=== PATIENT | female | born 1955 | race Caucasian/White ===

== ENCOUNTER 2024-08-02 16:20 | Emergency (ER) | payer MEDICARE, SELFPAY ==
[2024-08-02 16:22] VITALS: BP 150/89; PULSE 95; RESP 19; TEMP 36.7; O2SAT 97; BMI 32.7
[2024-08-02 16:23] VITALS: BP 150/89; PULSE 95; RESP 19; TEMP 36.7; O2SAT 97
--- OUTSIDE RECORDS SUMMARY | 2024-08-02 17:14 | XMS RPT_ITS | CCD ---
Author Organization [facility] CliniSyny Care Team Providers Care Rn Cardiac Cath Name Role Phone CHIN AUGUSTINE Unavailable Unavailable NICOLAS BIANCHI Unavailable Unavailable [employer]oto SECURITY AND COMPLIANCE ANALYST-RINKMAN, Jessica Primary Care Provider Marcus Estrada MD Unavailable [employer]oto SECURITY AND COMPLIANCE ANALYST-RINKMAN, Jessica Primary Care Provider Marcus Estrada MD Unavailable Coto SECURITY AND COMPLIANCE ANALYST-RINKMAN, Jessica Primary Care Provider Marcus Estrada MD Unavailable Unavailable Primary Care Provider Unavailabl e PROVIDER, UNKNOWN Admitting Unavailable COTO, JESSICA Primary Care Unavailable COTO, JESSICA Attending Unavailable PROVIDER, UNKNOWN Admitting Unavailable PROVIDER, UNKNOWN Attending Unavailable COTO, JESSICA Primary Care Unavailable COTO, JESSICA Referring Unavailable PROVIDER, UNKNOWN Admitting Unavailable PROVIDER, UNKNOWN Attending Unavailable COTO, JESSICA Primary Care Unavailable EUNICE GALE Attending Unavailable PROVIDER, UNKNOWN Admitting Unavailable COTO, JESSICA Primary Care Unavailable PROVIDER, UNKNOWN Attending Unavailable PROVIDER, UNKNOWN Admitting Unavailable COTO, JESSICA Primary Care Unavailable PROVIDER, UNKNOWN Admitting Unavailable COTO, JESSICA Attending Unavailable COTO, JESSICA Primary Care Unavailable COTO, JESSICA Primary Care Unavailable EUNICE GALE Attending Unavailable PROVIDER, UNKNOWN Admitting Unavailable COTO, JESSICA Primary Care Unavailable PROVIDER, UNKNOWN Attending Unavailable PROVIDER, UNKNOWN Admitting Unavailable COTO, JESSICA Primary Care Unavailable MARKUS LAUGHLIN Attending Unavailabl e PROVIDER, UNKNOWN Admitting Unavailable PROVIDER, UNKNOWN Admitting Unavailable COTO, JESSICA Primary Care Unavailable PROVIDER, UNKNOWN Attending Unavailable Allergies Allergy Classification Reported Allergen(s) Allergy Type Date of Onset Reaction(s) Facility Aminoketones (2 sources) buPROPion Drug Allergy 4 [facility] Work Phone: Penicillins (antibiotic) (2 sources) Penicillins Drug Allergy 1 [facility] (20 sources) buPROPion; Translations: [BUPROPION] Drug Allergy 4 [facility] Work Phone: (20 sources) Penicillins; Translations: [PENICILLINS] Propensity to adverse reactions to drug 1 [facility] Medications Current Medications Medication Drug Class(es) Dates Sig (Normalized) Sig (Original) cefpodoxime 100 mg oral tablet (3 sources) Cephalosporin Antibacterial Start: 03-29-2023 End: 04-09-2023 take 2 tablets by mouth twice daily cefpodoxime (VANTIN) 100 MG tablet Take 2 Tablets by mouth 2 times daily for 7 days. 28 Tablet 0 03/29/2023 04/09/2023 Active cholecalciferol 0.025 mg oral capsule (20 sources) Vitamin D Start: 04-14-2022 End: 06-18-2024 take 1 capsule by mouth once daily Vitamin D3 (D3-1000) 25 MCG (1000 UT) CAPS capsule Take 1 Capsule by mouth daily. To start after you finish taking the once a week dosage 90 Capsule 3 06/19/2024 Active diclofenac sodium 75 mg delayed release oral tablet (2 sources) Nonsteroidal Anti-inflammatory Drug Start: 03-23-2023 End: 03-28-2023 take 1 tablet by mouth twice daily diclofenac (VOLTAREN) 75 MG enteric coated tablet Take 1 Tablet by mouth 2 times daily for 5 days. 10 Tablet 0 03/23/2023 03/28/2023 Active esomeprazole 20 mg delayed release oral capsule (20 sources) Proton Pump Inhibitor Start: 04-30-2023 End: 02-18-2025 take 1 capsule by mouth once daily in the evening esomeprazole (NEXIUM) 20 MG capsule Indications: Gastroesophageal reflux disease, unspecified whether esophagitis present Take 1 Capsule by mouth daily. 90 Capsule 3 06/03/2024 6:34 PM EDT 02/19/2024 02/18/2025 Active Start: 09-30-2020 End: 10-10-2022 take 1 capsule by mouth once daily 30 minutes before breakfast esomeprazole (NEXIUM) 20 MG capsule TAKE 1 CAPSULE BY MOUTH DAILY (30 MINUTES BEFORE BREAKFAST). 90 Capsule 3 10/10/2021 04/19/2022 Discontinued (Cost of medication) estrogens, conjugated (longterm) 0.625 mg/ml vaginal cream (20 sources) Estrogen Start: 11-24-2021 End: 12-24-2021 conjugated estrogens (PREMARIN) 0.625 MG/GM vaginal cream Indications: KARAN (stress urinary incontinence, female) , Atrophic vaginitis Insert 1g into the vagina daily for 14 days. To start this medication use a bedtime daily for 14 days and then use twice weekly. Insert with applicator. 30 g 2 11/24/2021 11:45 AM EDT 11/24/2021 Active fluticasone propionate 0.05 mg/actuat metered dose nasal spray (20 sources) Corticosteroid Start: 03-16-2024 take 1 spray(s) nasal route twice daily in the evening fluticasone (FLONASE) 50 mcg/act nasal inhaler Indications: Allergic rhinitis, unspecified seasonality, unspecified trigger Use 1 Corinne in each nostril 2 times daily. Corinne in both nostrils. 48 g 3 03/17/2024 3:49 PM EST 03/16/2024 Active Start: 09-13-2021 End: 10-31-2022 take 1 spray(s) nasal route twice daily in the evening fluticasone (FLONASE) 50 mcg/act nasal inhaler Indications: Allergic rhinitis, unspecified seasonality, unspecified trigger Use 1 Corinne in each nostril 2 times daily. Corinne in both nostrils. 16 g 1 09/04/2023 6:33 PM EDT 10/31/2022 Active 3 ml liraglutide 6 mg/ml pen injector (17 sources) GLP-1 Receptor Agonist Start: 07-19-2023 End: 12-19-2024 inject 1.8 mg by subcutaneous injection once daily in the evening liraglutide (VICTOZA) 18 MG/3ML pen Indications: Prediabetes , Class 1 obesity Inject 1.8 mg under the skin daily. 27 mL 3 12/21/2023 3:44 PM EDT 12/20/2023 12/19/2024 Active losartan potassium 25 mg oral tablet (14 sources) Angiotensin 2 Receptor Gautam Start: 07-25-2023 End: 10-09-2024 take 1 tablet by mouth once daily in the evening losartan (COZAAR) 25 MG tablet Take 1 Tablet by mouth daily. 90 Tablet 3 03/17/2024 3:49 PM EST 10/10/2023 10/09/2024 Active ondansetron 4 mg disintegrating oral tablet (1 source) Serotonin-3 Receptor Antagonist Start: 03-18-2022 ondansetron (ZOFRAN-ODT) disintegrating tablet vitamin b12 1 mg oral tablet (20 sources) Vitamin B12 Start: 04-14-2022 End: 06-03-2023 take 1 tablet by mouth once daily in the morning vitamin B-12 (CYANOCOBALAMIN) 1000 MCG tablet Take 1 Tablet by mouth daily. 90 Tablet 3 04/09/2024 9:04 AM EST 06/04/2023 Active Completed/Discontinued Medications Medication Drug Class(es) Dates Sig (Normalized) Sig (Original) acetaminophen 325 mg oral tablet (20 sources) Start: 03-18-2022 End: 03-18-2022 acetaminophen (TYLENOL) tablet Start: 03-18-2022 End: 07-19-2023 take 2 tablets by mouth every six hours as needed for pain acetaminophen (TYLENOL) 325 mg tablet Take 2 Tablets by mouth every 6 hours as needed for Pain or Fever. 30 Tablet 03/18/2022 07/19/2023 Discontinued azithromycin 250 mg oral tablet (3 sources) Macrolide Antimicrobial Start: 03-29-2023 End: 04-03-2023 azithromycin (Z-PACK) 250 mg tablet Take 2 tabs by mouth once on day 1, then take 1 tab by mouth daily for 4 days. 6 Tablet 0 03/29/2023 04/03/2023 benzonatate 100 mg oral capsule (5 sources) Non-narcotic Antitussive Start: 03-18-2022 End: 03-18-2022 benzonatate (TESSALON) 100 MG capsule Start: 03-18-2022 End: 03-30-2022 take 1 capsule by mouth three times daily as needed for cough benzonatate (TESSALON) 100 MG capsule Take 1 Capsule by mouth 3 times daily as needed for Cough. 30 Capsule 0 03/18/2022 03/30/2022 Discontinued (Therapy completed) ergocalciferol 1.25 mg oral capsule (14 sources) Provitamin D2 Compound Start: 04-14-2022 End: 07-19-2023 take 1 capsule by mouth every week vitamin D2 (ERGOCALCIFEROL) 1.25 MG (52204 UT) capsule Take 1 Capsule by mouth once weekly. 12 Capsule 04/14/2022 07/19/2023 Discontinued 12 hr guaiFENesin 600 mg extended release oral tablet (19 sources) Start: 03-18-2022 End: 03-18-2022 guaifenesin (MUCINEX) 600 MG 12 hour tablet Start: 03-18-2022 End: 04-30-2023 take 1 tablet by mouth twice daily as needed guaifenesin (Mucinex) 600 MG SR tablet Take 1 Tablet by mouth 2 times daily as needed. 20 Tablet 0 03/18/2022 04/30/2023 Discontinued omeprazole 20 mg delayed release oral capsule (1 source) Proton Pump Inhibitor End: 04-30-2023 take 1 capsule by mouth once daily omeprazole (PRILOSEC) 20 MG capsule Take 20 mg by mouth daily. 0 04/30/2023 Discontinued oseltamivir 75 mg oral capsule (4 sources) Neuraminidase Inhibitor Start: 03-29-2023 End: 04-30-2023 take 1 capsule by mouth twice daily oseltamivir (TAMIFLU) 75 MG capsule Take 1 Capsule by mouth 2 times daily. 10 Capsule 0 03/29/2023 04/30/2023 Discontinued pantoprazole 40 mg delayed release oral tablet (13 sources) Proton Pump Inhibitor Start: 04-19-2022 End: 04-30-2023 take 1 tablet by mouth once daily 30 minutes before breakfast pantoprazole (PROTONIX) 40 MG tablet Take 1 Tablet by mouth daily (30 minutes before breakfast). 90 Tablet 3 10/06/2022 04/30/2023 Discontinued Semaglutide, 1 MG/DOSE, (OZEMPIC) 4 MG/3ML pen (6 sources) Start: 09-03-2023 End: 12-20-2023 inject 1 mg by subcutaneous injection every week Semaglutide, 1 MG/DOSE, (OZEMPIC) 4 MG/3ML pen Indications: Prediabetes Inject 1 mg under the skin once weekly. 9 mL 3 09/03/2023 12/20/2023 Discontinued Start: 09-03-2023 inject 1 mg by subcu taneous injection every week Semaglutide, 1 MG/DOSE, (OZEMPIC) 4 MG/3ML pen Indications: Prediabetes Inject 1 mg under the skin once weekly. 9 mL 3 09/03/2023 Active topiramate 25 mg oral tablet (14 sources) Start: 04-13-2022 End: 06-03-2023 take 1 tablet by mouth once daily at dinner topiramate (TOPAMAX) 25 MG tablet Take 1 Tablet by mouth daily. Take at dinner 90 Tablet 3 04/13/2022 04/30/2023 Discontinued VITAMIN D ORAL (7 sources) End: 04-30-2023 VITAMIN D ORAL Take by mouth daily. 0 04/30/2023 Discontinued VITAMIN D ORAL T lazaro by mouth daily. 0 Active Problems Active Problems Problem Classification Problem Date Documented Date Episodic/Chronic Chronic obstructive pulmonary disease and bronchiectasis (20 sources) Chronic bronchitis; Translations: [Unspecified chronic bronchitis] Onset: 05-27-2004 Resolved: 08-13-2017 08-13-2017 Chronic Deficiency and other anemia (1 source) Anemia; Translations: [Anemia, unspecified] Episodic Disorders of lipid metabolism (20 sources) Hyperlipidemia; Translations: [Hyperlipidemia, unspecified] Onset: 09-14-2021 Chronic Esophageal disorders (20 sources) Gastroesophageal reflux disease; Translations: [Gastro-esophageal reflux disease without esophagitis] Onset: 08-13-2017 08-13-2017 Chronic Essential hypertension (20 sources) Essential hypertension; Translations: [Essential (primary) hypertension] Onset: 03-31-2023 03-23-2023 Chronic Fluid and electrolyte disorders (2 sources) Hyperkalemia; Translations: [Hyperkalemia] 11-27-2023 Episodic Genitourinary symptoms and ill-defined conditions (1 source) Female stress incontinence; Translations: [Stress incontinence (female) (male)] Chronic Genitourinary symptoms and ill-defined conditions (1 source) Scalding pain on urination ; Translations: [Dysuria] Episodic Immunizations and screening for infectious disease (5 sources) Immunization due; Translations: [Encounter for immunization] Episodic Menopausal disorders (1 source) Atrophic vaginitis; Translations: [Postmenopausal atrophic vaginitis] Chronic Nutritional deficiencies (20 sources) Vitamin D deficiency; Translations: [Vitamin D deficiency, unspecified] Onset: 04-14-2022 Chronic Other connective tissue disease (1 source) Cramp in lower limb; Translations: [Cramp and spasm] 02-23-2024 Episodic Other connective tissue disease (1 source) Cramp and spasm; Translations: [Cramp and spasm] Onset: 05-01-2024 Episodic Other nutritional; endocrine; and metabolic disorders (14 sources) Body mass index 30+ - obesity; Translations: [Body mass index (BMI) 32.0-32.9, adult] Chronic Other nutritional; endocrine; and metabolic disorders (7 sources) Obese class I; Translations: [Obesity, unspecified] Chronic Other nutritional; endocrine; and metabolic disorders (1 source) Body Mass Index 33.0-33.9, adult 05-05-2023 Chronic Other nutritional; endocrine; and metabolic disorders (1 source) Obesity, unspecified; Translations: [Obesity, unspecified] Onset: 07-19-2023 Chronic Other nutritional; endocrine; and metabolic disorders (1 source) Body mass index (BMI) 33.0-33.9, adult; Translations: [Body mass index (BMI) 33.0-33.9, adult] Onset: 07-19-2023 Chronic Other nutritional; endocrine; and metabolic disorders (1 source) Overweight in adulthood with body mass index of 25 or more but less than 30; Translations: [Body mass index (BMI) 29.0-29.9, adult] 11-27-2023 Episodic Other screening for suspected conditions (not mental disorders or infectious disease) (7 sources) Patient encounter status; Translations: [Encounter for screening mammogram for malignant neoplasm of breast] Onset: 07-31-2023 Episodic Other upper respiratory disease (20 sources) Allergic rhinitis; Translations: [Allergic rhinitis, unspecified] Onset: 07-06-2014 08-13-2017 Chronic Other upper respiratory disease (20 sources) Seasonal allergy; Translations: [Other seasonal allergic rhinitis] Onset: 08-15-2010 08-21-2018 Chronic Other upper respiratory disease (2 sources) Allergic rhinitis, cause unspecified Onset: 08-15-2010 08-13-2017 Chronic Prolapse of female genital organs (1 source) Midline cystocele; Translations: [Cystocele, midline] Chronic Unclassified (1 source) Patient encounter status 06-19-2024 Viral infection (2 sources) Disease caused by 2019-nCoV; Translations: [COVID-19] Episodic Past or Other Problems Problem Classification Problem Date Documented Da te Episodic/Chronic Allergic reactions (20 sources) Allergy; Translations: [Other allergy, other than to medicinal agents] Onset: 03-14-2012 Resolved: 08-13-2017 08-13-2017 Episodic Diabetes mellitus without complication (20 sources) Abnormal glucose level; Translations: [Other abnormal glucose] Onset: 04-14-2022 Episodic Influenza (13 sources) Influenza due to Influenza A virus; Translations: [Influenza due to other identified influenza virus with other respiratory manifestations] Onset: 03-31-2023 03-23-2023 Episodic Nutritional deficiencies (20 sources) Cobalamin deficiency; Translations: [Deficiency of other specified B group vitamins] Onset: 04-14-2022 Episodic Other gastrointestinal disorders (1 source) Dysphagia, unspecified 05-05-2023 Episodic Other upper respiratory disease (1 source) Other disease of nasal cavity and sinuses 04-30-2023 Episodic Other upper respiratory infections (10 sources) Viral upper respiratory tract infection; Translations: [Acute upper respiratory infection, unspecified] Onset: 03-31-2023 03-23-2023 Episodic Results Test Name Value Interpretation Reference Range Facility MAGNESIUMon 05-01-2024 Magnesium [Mass/Vol] 2.0 mg/dL Normal 1.9-2.7 [facility] Comment on above: Performed By: #### MG, TSH HS #### [facility] [address] [place] [address], TSHon 05-01-2024 TSH 1.743 uIU/mL Normal 0.450-5.330 [facility] Comment on above: Result Comment: Referance range for preg nant women as applicable: First Trimester: 0. 050 to 3.700 uIU/mL Second Trimester: 0. 310 to 4.350 uIU/mL Third Trimester: 0. 410 to 5.180 uIU/mL Performed By: #### M G, TSH HS #### [facility] [address] [place], [place], Telephone Encounteron 2024 Recreational Therapy Technician Authentication Interface Message Text Attempted to reach patient. Unable to reach, unable to leave [facility] full. Mychart message sent and letter created - forwarded to clerical pool for mailing Normal [facility] Telephone Encounteron 2024 Recreational Therapy Technician Authentication Interface Message Text Attempted to reach patient, no answer. Mail box full and unable to leave a voicemail. Staff to re-attempt at later time Normal [facility] Recreational Therapy Technician Authentication Interface Message Text Situation: Pt called. Pt Question - Does She Need to Fast for Current Bloodwork Orders Recommendation: Please call and advise Telephone Information: Normal [facility] Telephone Encounteron 2024 Recreational Therapy Technician Authentication Interface Message Text changed to 3 refills. Normal [facility] Assessment AND Plan Noteon 0 02-23-2024 Recreational Therapy Technician Authentication Interface Message Text Continue nexium. Pt to notify me if symptoms are not improving/worsen. Orders: esomeprazole (NEXIUM) 20 MG capsule; Take 1 Capsule by mouth daily. Normal [facility] Recreational Therapy Technician Authentication Interface Message Text A1c back in normal range on recent check. Normal [facility] Recreational Therapy Technician Authentication Interface Message Text Adequately managed on current med(s)/tx. No change in tx plan at this time. Normal [facility] Progress Noteson 02-19-2024 Recreational Therapy Technician Authentication Interface Message Text Chief Complaint Patient presents with Monitoring/follow-up Subjective Chief Complaint: Sabina Judd presents for routine follow up visit Comes to the visit unaccompanied. Last visit with PCP (JESSICA COTO) was 08/16/2023 Narrative Summary: Feels well overall BP is controlled today Pt denies chest pain, sob, palpitations, leg swelling, dizziness, lightheadedness, and headaches Current med regimen is well tolerated; no side effects Has been getting a lot of leg cramps Mostly at nighttime Increase in heartburn recently Missed a dose of nexium recently and had been eating more w/ the holidays Denies abdominal pain, nausea, vomiting No dysphagia or odynophagia No unintentional weight loss Remains on victoza; follows w/ wt mgmt Weight up slightly Feels like this may be d/t her eating habits around the holidays ROS: Review of Systems All other systems reviewed and are negative. Objective Vitals Recorded in This Encounter 02/19/2024 0811 BP: 128/76 Pulse: 79 BP position: sitting Temp: 97.1 ???F (36.2 ???C) Temp src: Temporal SpO2: 97 % Weight: 165 lb 11.2 oz (75.2 kg) Height: 5' 2 (1.575 m) Pain Score: 0 No LMP recorded. Patient is postmenopausal. Wt Readings from Last 5 Encounters: 02/19/24 165 lb 11.2 oz (75.2 kg) 11/26/23 160 lb 9.6 oz (72.8 kg) 08/16/23 174 lb 6.4 oz (79.1 kg) 07/19/23 183 lb 12.8 oz (83.4 kg) 04/30/23 184 lb (83.5 kg) Physical Exam Vitals reviewed. Constitutional: General: She is not in acute distress. Cardiovascular: Rate and Rhythm: Normal rate and regular rhythm. Pulses: Normal pulses. Heart sounds: Normal heart sounds. Pulmonary: Effort: Pulmonary effort is normal. Breath sounds: Normal breath sounds and air entry. Abdominal: General: Bowel sounds are normal. Palpations: Abdomen is soft. Tenderness: There is no abdominal tenderness. Musculoskeletal: Right lower leg: No edema. Left lower leg: No edema. Skin: General: Skin is warm and dry. Neurological: Mental Status: She is alert and oriented to person, place, and time. Psychiatric: Mood and Affect: Mood normal. Behavior: Behavior is cooperative. Assessment AND Plan Essential hypertension Adequately managed on current med(s)/tx. No change in tx plan at this time. Prediabetes A1c back in normal range on recent check. Leg cramps Increase fluids. Stretching enc. Check mg+ and tsh. Orders: MAGNESIUM; Future TSH; Future Gastroesophageal reflux disease, unspecified whether esophagitis present Continue nexium. Pt to notify me if symptoms are not improving/worsen. Orders: esomeprazole (NEXIUM) 20 MG capsule; Take 1 Capsule by mouth daily. Hyperkalemia Noted on labs in Nov. Needs repeat potassium- order already placed. Enc to complete. Orders AND Meds Signed During This Encounter Magnesium TSH esomeprazole (NEXIUM) 20 MG capsule RTC: Follow up in about 6 months (around 08/18/2024) for in-person visit. Jessica Coto APRN-RALPH This note was electronically transcribed using [employer] dictation software. Every effort has been made to provide a clear and accurate record, however, grammatical, spelling, and/or other word errors can occur. Normal [facility] Patient Instructionson 12-19 Recreational Therapy Technician Authentication Interface Message Text Goals Go to the gym Tuesdays and Increase water back up to 3 bottles Preparing For Holidays You need to plan ahead for any and all holidays/high trigger situations. Determine what is going to trigger you and ways to help avoid/ overcome the temptations Help reduce stress and improve/increase stress management techniques oMeditation/Prayer oExercise oReading/Music oGetting Adequate Sleep oStay socially connected with friends/family Be realistic ( Aiming for maintaining ) Do not beat yourself up about not loosing oIf you overeat at one meal go light on the next. It takes 500 calories per day (or 3,500 calories per week) above your normal/maintenance consumption to gain one pound. It is impossible to gain weight from one piece of pie! Try and Create new Holiday Traditions that take the focus off food. oTurn candy and cookie making time into non-edible projects like making wreaths, dough art decorations or a gingerbread house. oPlan group activities with family/friends that aren't all about food.(Serving a holiday meal to the community, playing games or going on a walking tour of decorated homes) Tips to Avoid overeating 1.Don't skip meals. (Eat a light snack like raw vegetables or a piece of fruit to curb your appetite right before a constitution party ) 2. Avoid going to the meal location early (be fashionably late) to avoid pre-meal snacking. 3. Survey constitution party buffets before filling your plate. Choose your favorite foods and skip your least favorite. Fill portion of plate with non starchy vegetables and lean protein oBring something healthy that you can eat just in case there is nothing there for you to eat. 5. Stay away from the kitchen when possible to avoid snacking (and all of the enticing smells). 6 Eat sloooooowwwwwwwwwww, chew more. ( put the fork down between bites and converse with people) 7. Focus on the social aspect of the holiday - engage in conversation. 8. Stay Busy oTake on the roles of tray server, salt machine operator, and cameraman - everyone will be grateful for your help and you will be keeping your hands busy (and away from the food). 9. Limit your time at the table. Be last to get served and first to get up (and wash dish immediately). 10. Take a walk during dessert. Distract yourself by playing with children or pets. 11.. Be careful with beverages. Alcohol can lessen inhibitions and induce overeating; non-alcoholic beverages can be full of calories and sugar. oAlcohol is rich in calories Alcohol contains nearly as many calories as fat. So it should be no surprise that drinking alcohol may contribute to holiday weight gain, especially if you drink more than usual while celebrating Increases (empty) calorie consumption Reduces fat burning oAlcohol can lead to overeating drinking alcohol can make you lose track of how much you are eating and drinking. Reduces your ability to act reliably This can lead to overeating, that is consuming more calories than you need. Reduces your ability to act reliably 12. Be aware of who your enablers are and avoid them. Sit between two people that will support your healthy food choices (and not pile up your plate with seconds and thirds). Make sure that you have at least one advocate at the meal who will hold you accountable. 13.In the event you need an exit strategy, use the 3 Gs: o Get out (excuse yourself to the restroom and leave the room/building) o Get honest (tell yourself, If I stay at the table, I will end up eating more.) o Get responsible (decide the best possible action for your healthy lifestyle change and act upon it - even if it means leaving the gathering a little early.) Hosting the Meal o Don't cook foods you like. Avoid cooking items you know you can't say no to. o Minimize leftovers - don't overcook. If you do end up with leftovers, pack them up immediately and give them to guests before they walk out the door. oPractice Healthy Holiday Cooking. Preparing favorite dishes lower in fat and calories will help promote healthy holiday eating. Incorporate some of these simple-cooking tips in traditional holiday recipes to make them healthier. o Gravy -- Refrigerate the gravy to harden fat. Skim the fat off. This will save a whopping 56 gm of fat per cup. o Dressing -- Use a little less bread and add more onions, garlic, celery, and vegetables. Add fruits such as cranberries or apples. Moisten or flavor with low fat low sodium chicken or vegetable broth and applesauce. o Oriska - Enjoy delicious, roasted turkey breast without the skin and save 11 grams of saturated fat per 3 oz serving. o Green Craig Casserole -- Cook fresh green beans with chucks of potatoes instead of cream soup. Top with almonds instead of fried onion rings. o Mashed Potato -- Use skim milk, chicken broth, garlic or garlic powder, and Parmesan cheese instead of whole milk and butter. o Desserts -- Make a crustless pumpkin pie (more content not included)... Normal [facility] Progress Noteson 12-20-2023 Recreational Therapy Technician Authentication Interface Message Text Sabina Judd is a 68 year old White female here for [facility] up in [facility]. Patient has been following with weight management since initial visit on 12/19/21. HPI:Patient is here for medical management. 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) Bedtime 10pm and Wakes 4/445 Dietary Recall: - Fasting meal: bran flakes with fairrlife, - Lunch: chicken salad with peaches - Dinner: pasta w/ chicken, salad with chicken, picked up a sandwich - Snacks: popcorn rarely something sweet like a donut - Beverages: water (1 bottle +1 glass) coffee ( 1-2 cup- SF), diet soda, unsweet iced tea - Nocturnal ingestions: no - Eating out (# of days per week): rare - Patient Logged: No Activity: Has membership at the gym but has not gone Current Outpatient Medications Medication Sig Dispense Refill losartan (COZAAR) 25 MG tablet Take 1 Tablet by mouth daily. 90 Tablet 3 Semaglutide, 1 MG/DOSE, (OZEMPIC) 4 MG/3ML pen Inject 1 mg under the skin once weekly. 9 mL 3 liraglutide (VICTOZA) 18 MG/3ML pen Inject 1.8 mg under the skin daily. 27 mL 3 insulin pen needle 31g x 8 mm (B-D U/F PEN NEEDLE 31GX5/16) Use 1 needle per day under the skin to be used with victoza pen 100 Each 3 Vitamin D3 (Vitamin D High Potency) 25 MCG (1000 UT) CAPS capsule Take 1 Capsule by mouth daily. To start after you finish taking the once a week dosage 90 Capsule 3 vitamin B-12 (CYANOCOBALAMIN) 1000 MCG tablet Take 1 Tablet by mouth daily. (Patient not taking: Reported on 08/16/2023) 90 Tablet 3 esomeprazole (NEXIUM) 20 MG capsule Take 1 Capsule by mouth daily. fluticasone (FLONASE) 50 mcg/act nasal inhaler Use 1 Corinne in each nostril 2 times daily. Corinne in both nostrils. 16 g 1 conjugated estrogens (PREMARIN) 0.625 MG/GM vaginal cream Insert 1g into the vagina daily for 14 days. To start this medication use a bedtime daily for 14 days and then use twice weekly. Insert with applicator. 30 g 2 No current facility-administered medications for this visit. Review of Systems Constitutional: Negative. Eyes: Negative for blurred vision and double vision. Respiratory: Negative for cough, shortness of breath and wheezing. Cardiovascular: Negative for chest pain, palpitations, orthopnea and leg swelling. Gastrointestinal: Negative for abdominal pain, constipation, diarrhea, heartburn, nausea and vomiting. Musculoskeletal: Negative for back pain and joint pain. Skin: Negative for itching and rash. Neurological: Negative for tingling, weakness and headaches. Endo/Heme/Allergies: Does not bruise/bleed easily. Psychiatric/Behavioral: Negative for depression. The patient has insomnia. The patient is not nervous/anxious. BP 117/77 Pulse 83 Physical Exam Eyes: Pupils: Pupils are equal, round, and reactive to light. Pulmonary: Effort: Pulmonary effort is normal. Skin: General: Skin is warm and dry. Neurological: Mental Status: She is alert and oriented to person, place, and time. Psychiatric: Mood and Affect: Mood and affect normal. Weight History/Log 12/20/23 161# 07/19/23 183# 04/13/22 177# 12/19/21 183# initial Clinical Summary: Sabina Judd is a 66 year old female with severe obesity and the following medical problems caused by or worsened by obesity: dyslipidemia, gastroesophageal reflux disease, low back pain, and lower extremity joint pain, which can be improved with weight loss. Pertinent contributing factors include limited exercise, eating quickly, stress eating, and eating motivated by boredom Since initial visit in weight management patient has trialed the following interventions: 04/13/22-pt notes she was doing well and then with the holidays got off track and is back to snacking on junk in the evenings. She also stopped going to the gym. 07/19/23- pt notes she did not find topiramate helpful and struggled over the weekend with junk food. She has been enjoying working out in her garden but no routine exercise. 12/20/23- pt is doing well on victoza. Has not made it to the gym yet but plans to next week. She is working on reducing portion sizes. Weight Loss Medication Summary: topiramate (no helpful) The patient will continue with this plan of life style modification with the adjustments listed as follows: Goals to work on until next visit: Go to the gym Tuesdays and Increase water back up to 3 bottles Diagnoses: (E66.9) Class 1 obesity Plan: Victoza 1.2 ( can increase to 1.8 if needed) (E78.5) Hyperlipidemia, unspecified hyperlipidemia type (primary encounter diagnosis) Comment: Stephanie (more content not included)... Normal [facility] Assessment AND Plan Noteon 1 Recreational Therapy Technician Authentication Interface Message Text Orders: VITAMIN D, 25-HYDROXY Normal [facility] Diabetes tracking panelOrder ed By: Isma Fuentes on 11-27-2023 Average glucose Estimated from glycated hemoglobin (Bld) [Mass/Vol] 108 mg/[facility] (Bld) [Mass fraction] 5.4 % 4.0 - 5.6 % [facility] Noteson 11-27-2023 Recreational Therapy Technician Authentication Interface Message Text ANNUAL WELLNESS VISIT Subjective Ms. Judd is a 68 year old who is being seen for her Annual Wellness Visit. I have reviewed and updated the following information (Care Team, Medical History, Surgical History, Social History, Family History and current medications including [id number] medications and supplements): Patient Care Team: Jessica Coto APRN-CNP as PCP - General (Family Medicine) Marcus Estrada MD as Physician (Ophthalmology) Past Medical History: Diagnosis Date GERD (gastroesophageal reflux disease) Seasonal allergies Past Surgical History: Procedure Laterality Date APPENDECTOMY ESOPHAGOGASTRODUODENOSCOPY N/A 11/04/2018 Procedure: ESOPHAGOGASTRODUODENOSCOPY; Surgeon: Gianni Conway MD; Location: [facility]; Service: Gastroenterology RECONSTRUCTION OF NOSE. [id number] TUBAL LIGATION Family History Problem Relation Age of Onset Diabetes Mellitus Sister Diabetes Mellitus Maternal Grandmother Hypertension Sister Lung Disease Brother COPD- smoker Heart Disease Brother Myocardial Infarction Sister Diabetes Mellitus (Type 2) Sister Other ( cancer) Sister uterine CA Lung Cancer Father questioned documents examiner ( black lung) Arthritis Mother Cancer Paternal Grandmother Esophageal Cancer Paternal Uncle Breast Cancer Negative Family History of Colon Cancer Negative Family History of Social History Socioeconomic History Marital status: Highest education level: GED or equivalent Tobacco Use Smoking status: Former Current packs/day: 0.00 Average packs/day: 0.8 packs/day for 20.0 years (16.0 ttl pk-yrs) Types: Cigarettes Start date: 03/21/1985 Quit date: 03/21/2005 Years since quittin.6 Smokeless tobacco: Never Substance and Sexual Activity Alcohol use: No Drug use: No Sexual activity: Not Currently Partners: Male Social History Narrative 07/2017: [facility] Living with her Phan moraes Social Determinants of Health Financial Resource Strain: Low Risk (07/19/2023) Overall Financial Resource Strain (CARDIA) Difficulty of Paying Living Expenses: Not hard at all Food Insecurity: No Food Insecurity (07/19/2023) Hunger Vital Sign Worried About Running Out of Food in the Last Year: Never true Ran Out of Food in the Last Year: Never true Transportation Needs: No Transportation Needs (07/19/2023) PRAPARE - Transportation Lack of Transportation (Medical): No Lack of Transportation (Non-Medical): No Physical Activity: Patient Declined (07/19/2023) Exercise Vital Sign Days of Exercise per Week: Patient declined Minutes of Exercise per Session: Patient declined Stress: No Stress Concern Present (07/19/2023) [employer] - Occupational Stress Questionnaire Feeling of Stress : Not at all Social Connections: Unknown (07/19/2023) Social Connection and Isolation Panel [NHANES] Frequency of Communication with Friends and Family: Patient declined Frequency of Social Gatherings with Friends and Family: Patient declined Attends Yarsanism Services: Patient declined Active Member of Clubs or Organizations: Patient declined Attends Club or Organization Meetings: Patient declined Marital Status: Intimate Partner Violence: Not At Risk (07/19/2023) Humiliation, Afraid, Rape, and Kick questionnaire Fear of Current or Ex-Partner: No Emotionally Abused: No Physically Abused: No Sexually Abused: No Current Outpatient Medications on File Prior to Visit Medication Sig Dispense Refill losartan (COZAAR) 25 MG tablet Take 1 Tablet by mouth daily. 90 Tablet 3 Semaglutide, 1 MG/DOSE, (OZEMPIC) 4 MG/3ML pen Inject 1 mg under the skin once weekly. 9 mL 3 liraglutide (VICTOZA) 18 MG/3ML pen Inject 1.8 mg under the skin daily. 27 mL 3 insulin pen needle 31g x 8 mm (B-D U/F PEN NEEDLE 31GX5/16) Use 1 needle per day under the skin to be used with victoza pen 100 Each 3 Vitamin D3 (Vitamin D High Potency) 25 MCG (1000 UT) CAPS capsule Take 1 Capsule by mouth daily. To start after you finish taking the once a week dosage 90 Capsule 3 vitamin B-12 (CYANOCOBALAMIN) 1000 MCG tablet Take 1 Tablet by mouth daily. (Patient not taking: Reported on 08/16/2023) 90 Tablet 3 esomeprazole (NEXIUM) 20 MG capsule Take 1 Capsule by mouth daily. fluticasone (FLONASE) 50 mcg/act nasal inhaler Use 1 Corinne in each nostril 2 times daily. Corinne in both nostrils. 16 g 1 conjugated estrogens (PREMARIN) 0.625 MG/GM vaginal cream Insert 1g into the vagina daily for 14 days. To start this medication use a bedtime daily for 14 days and then use twice weekly. Insert with applicator. 30 g 2 No current facility-administered medications on file prior to visit. I have reviewed the following additional information for Ms. Judd. Falls Risk Screen Falls Risk Screen Fall History (past 12 months): No Fallen with Injury?: No Problems with Walki (more content not included)... Normal [facility] BASIC METABOLIC PANELon 10-0 Anion gap [Moles/Vol] 13 mmol/L Normal 10-20 [facility] Comment on above: Performed By: #### CH8 #### [facility] [address] [place] [address], Calcium [Mass/Vol] 9.8 mg/dL Normal 8.6-10.3 [facility] Comment on above: Performed By: #### CH8 #### [facility] [address] [place] [address], Chloride [Moles/Vol] 105 mmol/L Normal 98-107 [facility] Comment on above: Performed By: #### CH8 #### [facility] [address] [place] [address], CO2 [Moles/Vol] 32 mmol/L High 21-31 [facility] Comment on above: Performed By: #### CH8 #### [facility] [address] [place] [address], Creatinine [Mass/Vol] 1.02 mg/dL Normal 0.60-1.20 [facility] Comment on above: Performed By: #### CH8 #### [facility] [address] [place] [address], ESTIMATED GFR (CKD-EPI) 60 mL/min/1.73sqm Normal >=60 [facility] Comment on above: Result Comment: 2020 CKD EPI Equation us ing Creatinine without Race Comment: Estimated glomerular filtration rate (eGFR) is calculated without a race coefficient. Values should be interpreted in the context of the patient's full clinical presentation. Reference: 1. Jose Wagner, Joyce M, Yany ROSA, et al.. A Unifying Approach for GFR Estimation: Recommendations of the NKF-ASN Task Force on Reassessing the Inclusion of Race in Diagnosing Kidney Disease. [place] Journal of Kidney Diseases 202;79(2):268-88.e1. 2. N Engl J Med 2020 Vol. 385 Issue 19 Pages 7876-7751 Performed By: #### C H8 #### [facility] [address] [place] [address], Glucose [Mass/Vol] 87 mg/dL Normal 74-109 [facility] Comment on above: Performed By: #### CH8 #### [facility] [address] [place] [address], Potassium [Moles/Vol] 5.1 mmol/L High 3.5-5.0 [facility] Comment on above: Performed By: #### CH8 #### [facility] [address] [place] [address], Sodium [Moles/Vol] 145 mmol/L Normal 136-145 [facility] Comment on above: Performed By: #### CH8 #### [facility] [address] [place] [address], Urea nitrogen [Mass/Vol] 19 mg/dL Normal 7-25 [facility] Comment on above: Performed By: #### CH8 #### [facility] [address] [place] [address], Basic metabolic 2000 panelon 11-26-2023 Anion gap [Moles/Vol] 13 mmol/L 10 - 20 [facility] Calcium [Mass/Vol] 9.8 mg/dL 8.6 - 10.3 mg/dL [facility] Chloride [Moles/Vol] 105 mmol/L 98 - 107 mmol/L [facility] CO2 [Moles/Vol] 32 mmol/L High 21 - 31 mmol/L [facility] Creatinine [Mass/Vol] 1.02 mg/dL 0.60 - 1.20 mg/dL [facility] GFR/1.73 sq M.predicted CKD-EPI (S/P/Bld) [Vol rate/Area] 60 - PINF [facility] Comment on above: 2020 CKD EPI Equation using Creatinine w ithout Race Comment: Estimated glomerular filtration rate (eGFR) is calculated without a race coefficient. Values should be interpreted in the context of the patient's full clinical presentation. Reference: 1. Jose Wagner, Joyce M, Yany ROSA, et al.. A Unifying Approach for GFR Estimation: Recommendations of the NKF-ASN Task Force on Reassessing the Inclusion of Race in Diagnosing Kidney Disease. [place] Journal of Kidney Diseases 202;79(2):268-88.e1. 2. N Engl J Med 1 Vol. 385 Issue 19 Pages 4830-1511 Glucose [Mass/Vol] 87 mg/dL 74 - 109 mg/dL [facility] Interpretation and review of laboratory results Abnormal [facility] Potassium [Moles/Vol] 5.1 mmol/L High 3.5 - 5.0 mmol/L [facility] Sodium [Moles/Vol] 145 mmol/L 136 - 145 mmol/L [facility] Urea nitrogen [Mass/Vol] 19 mg/dL 7 - 25 mg/dL [facility] HEMOGLOBIN A1Con 11-26-2023 Glucose [Mass/Vol] 108 mg/dL Normal [facility] Comment on above: Performed By: #### VITD25 #### [facility] [address] [place] [address], HbA1c (Bld) [Mass fraction] 5.4 % Normal 4.0-5.6 [facility] Comment on above: Performed By: #### VITD25 #### [facility] [address] [place] [address], Patient Instructionson 11-25 Recreational Therapy Technician Authentication Interface Message Text There are no preventive care reminders to display for this patient. Please follow up with your Primary Care Provider with in 3-6 months. If there is any signs or symptoms of something new or any changes to a current condition you may need to see your PCP sooner. If there is any shortness of breath or other urgent conditions, please go to your nearest Emergency Room. Personalized Preventive Plan for Sabina Judd - 11/26/2023 - A preventive eye exam performed by an home health billing specialist is recommended every 1-2 years to screen for glaucoma, cataracts, macular degeneration, and other eye disorders - A preventive dental visit is recommended every 6 months - Try to get at least 150 minutes of exercise per week or 10,000 steps per day on a pedometer - Order FREE booklet Get Fit For Life: Exercise AND Physical Activity for Healthy Aging from [employer] on Agin1-781.985.1153 or https://order.boyd.nih.gov/publi cation/tre-kqf-nyf-life-exercis u-wuexgnpg-wgjyfut z-lbm-pvkmooi-aging - You need 0437-3312 mg of calcium and 1480-1993 IU of vitamin D per day - it is possible to meet your calcium requirement with diet alone, but a vitamin D supplement is usually necessary to meet this goal - When exposed to sun, use a sunscreen that protects against both UVA and UVB radiation with an SPF of 30 or greater - reapply every 2 to 3 hours or after sweating, drying off with a towel, or swimming - Always wear a seat belt when traveling in a car, and a helmet when riding a bicycle or motorcycle - Living will recommendations: consider making a Living Will and Durable Power of Store Specialist for Healthcare and please provide this office with a copy of your Living Will and Durable Power of Store Specialist for Healthcare Normal [facility] VITAMIN D, 25-HYDROXYon 10-0 25-hydroxyvitami n D IA [Mass/Vol] 43.6 ng/mL 30 - 100 ng/mL [facility] Interpretation and review of laboratory results Normal [facility] Deficient : <20.0 ng /mL Insufficient : 20.0-29.9 ng/mL Sufficient : 30.0 - 100.0 ng/mL Potential Toxicity : >100.0 ng/mL [facility] [id number] 43.6 ng/mL Normal 30-100 [facility] Comment on above: Order Comment: Deficient : <20.0 ng/mL Insufficient : 20.0-29.9 ng/mL Sufficient : 30.0 - 100.0 ng/mL Potential Toxicity : >100.0 ng/mL Performed By: #### V ITD25 #### [facility] [address] [place] [address], [phone] Telephone Encounteron 2023 Recreational Therapy Technician Authentication Interface Message Text Contact patient. Patient was identified by name and date of . Shaan Ojeda Patient requested assistance with scheduling medicare wellness exam. Patient agree with date and time 12/03/23 at 4 pm with Markus Rowell. HRA sent to . No further action needed at this time. Normal [facility] Telephone Encounteron 2023 Recreational Therapy Technician Authentication Interface Message Text Responding to message below: Normal except for high blood sugar. Were you fasting for this test or had you recently eaten? Written by CED Malik on 09/25/2023 7:35 PM EDT Seen by patient Sabina Judd on 09/27/2023 3:17 AM Normal [facility] BASIC METABOLIC PANELon 08-0 Anion gap [Moles/Vol] 10 mmol/L Normal 10-20 [facility] Comment on above: Performed By: #### CH8 #### [facility] [address] [place] [address], Calcium [Mass/Vol] 9.3 mg/dL Normal 8.6-10.3 [facility] Comment on above: Performed By: #### CH8 #### [facility] [address] [place] [address], Chloride [Moles/Vol] 106 mmol/L Normal 98-107 [facility] Comment on above: Performed By: #### CH8 #### [facility] [address] [place] [address], CO2 [Moles/Vol] 29 mmol/L Normal 21-31 [facility] Comment on above: Performed By: #### CH8 #### [facility] [address] [place] [address], Creatinine [Mass/Vol] 0.93 mg/dL Normal 0.60-1.20 [facility] Comment on above: Performed By: #### CH8 #### [facility] [address] [place] [address], ESTIMATED GFR (CKD-EPI) 67 mL/min/1.73sqm Normal >=60 [facility] Comment on above: Result Comment: 2020 CKD EPI Equation us ing Creatinine without Race Comment: Estimated glomerular filtration rate (eGFR) is calculated without a race coefficient. Values should be interpreted in the context of the patient's full clinical presentation. Reference: 1. Jose Wagner, Joyce M, Yany ROSA, et al.. A Unifying Approach for GFR Estimation: Recommendations of the NKF-ASN Task Force on Reassessing the Inclusion of Race in Diagnosing Kidney Disease. [place] Journal of Kidney Diseases 2022;79(2):268-88.e1. 2. N Engl J Med 1 Vol. 385 Issue 19 Pages 3340-3234 Performed By: #### C H8 #### [facility] [address] [place] [address], Glucose [Mass/Vol] 126 mg/dL High 74-109 [facility] Comment on above: Performed By: #### CH8 #### [facility] [address] [place] [address], Potassium [Moles/Vol] 4.7 mmol/L Normal 3.5-5.0 [facility] Comment on above: Performed By: #### CH8 #### [facility] [address] [place] [address], Sodium [Moles/Vol] 140 mmol/L Normal 136-145 [facility] Comment on above: Performed By: #### CH8 #### [facility] [address] [place] [address], Urea nitrogen [Mass/Vol] 19 mg/dL Normal 7-25 [facility] Comment on above: Performed By: #### CH8 #### [facility] [address] [place] [address], Basic metabolic 2000 panelon 09-25-2023 Anion gap [Moles/Vol] 10 mmol/L 10 - 20 [facility] Calcium [Mass/Vol] 9.3 mg/dL 8.6 - 10.3 mg/dL [facility] Chloride [Moles/Vol] 106 mmol/L 98 - 107 mmol/L [facility] CO2 [Moles/Vol] 29 mmol/L 21 - 31 mmol/L [facility] Creatinine [Mass/Vol] 0.93 mg/dL 0.60 - 1.20 mg/dL [facility] GFR/1.73 sq M.predicted CKD-EPI (S/P/Bld) [Vol rate/Area] 67 - PINF [facility] Comment on above: 2020 CKD EPI Equation using Creatinine w ithout Race Comment: Estimated glomerular filtration rate (eGFR) is calculated without a race coefficient. Values should be interpreted in the context of the patient's full clinical presentation. Reference: 1. Jael Mirelesja M, Yany DC, et al.. A Unifying Approach for GFR Estimation: Recommendations of the NKF-ASN Task Force on Reassessing the Inclusion of Race in Diagnosing Kidney Disease. [place] Journal of Kidney Diseases 202;79(2):268-88.e1. 2. N Engl J Med 2020 Vol. 385 Issue 19 Pages 2336-1122 Glucose [Mass/Vol] 126 mg/dL High 74 - 109 mg/dL [facility] Interpretation and review of laboratory results Abnormal [facility] Potassium [Moles/Vol] 4.7 mmol/L 3.5 - 5.0 mmol/L [facility] Sodium [Moles/Vol] 140 mmol/L 136 - 145 mmol/L [facility] Urea nitrogen [Mass/Vol] 19 mg/dL 7 - 25 mg/dL [facility] FECAL IMMUNOCHEMICAL TEST (F IT)on 09-07-2023 Lower GI hemoglobin IA Ql (Stl) Negative Normal Negative [facility] Comment on above: Performed By: #### [id number] #### [facility] [address] [place] [address], [phone] Patient Instructionson 08-15 Recreational Therapy Technician Authentication Interface Message Text To do: Complete blood work Normal [facility] Progress Noteson 08-16-2023 Recreational Therapy Technician Authentication Interface Message Text Chief Complaint Patient presents with Complete exam Follow up, BP med follow up HPI: Here today for routine f/u visit Comes to the visit unaccompanied. Last visit with PCP (JESSICA COTO) was 04/30/2023 Started losartan earlier this month Tolerating well Bp controlled today Has been checking bp at home- readings 130s/70s Was recently started on victoza by wt mgmt provider Has some nausea and heartburn when she first started it, but this has resolved Cut out snacks Eating healthier in general Drinking smoothies Increasing protein intake Has cut down portions No planned exercise currently; reports that she is active at work ROS: Review of Systems Constitutional: Negative. Eyes: Negative for blurred vision. Respiratory: Negative for shortness of breath. Cardiovascular: Negative for chest pain, palpitations and leg swelling. Gastrointestinal: Negative for heartburn, nausea, vomiting, abdominal pain, diarrhea and constipation. Neurological: Negative for dizziness and headaches. PE: Results Review Labs [facility] [employer] Vitals Recorded in This Encounter 08/16/2023 0850 BP: 132/75 Pulse: 78 BP position: sitting Temp: 98.2 ???F (36.8 ???C) SpO2: 96 % Weight: 174 lb 6.4 oz (79.1 kg) Height: 5' 2 (1.575 m) Pain Score: 1 Pain Loc: HEAD No LMP recorded. Patient is postmenopausal. Wt Readings from Last 5 Encounters: 08/16/23 174 lb 6.4 oz (79.1 kg) 07/19/23 183 lb 12.8 oz (83.4 kg) 04/30/23 184 lb (83.5 kg) 03/29/23 180 lb (81.6 kg) 03/23/23 183 lb (83 kg) Physical Exam Vitals reviewed. Constitutional: Appearance: She is obese. Eyes: Extraocular Movements: Extraocular movements intact. Conjunctiva/sclera: Conjunctivae normal. Pupils: Pupils are equal, round, and reactive to light. Cardiovascular: Rate and Rhythm: Normal rate and regular rhythm. Pulses: Normal pulses. Heart sounds: Normal heart sounds. Pulmonary: Effort: Pulmonary effort is normal. Breath sounds: Normal breath sounds and air entry. Abdominal: General: Bowel sounds are normal. Palpations: Abdomen is soft. Tenderness: There is no abdominal tenderness. Musculoskeletal: Right lower leg: No edema. Left lower leg: No edema. Skin: General: Skin is warm and dry. Neurological: Mental Status: She is alert and oriented to person, place, and time. Psychiatric: Behavior: Behavior is cooperative. ASSESSMENT/PLAN: Essential hypertension Adequately managed on current med(s)/tx. No change in tx plan at this time. - BASIC METABOLIC PANEL; Future Prediabetes A1c is stable on recent labs. Continue weight loss efforts. Increase exercise. Hyperlipidemia, unspecified hyperlipidemia type Stable on recent labs. BMI 31.0-31.9,adult Working w/ wt mgmt. Continue victoza. RTC: Follow up in about 6 months (around 02/15/2024), or if symptoms worsen or fail to improve, for in-person visit. Jessica Coto APRN-RINKMAN This note was electronically transcribed using [employer] dictation software. Every effort has been made to provide a clear and accurate record, however, grammatical, spelling, and/or other word errors can occur. Normal [facility] MG MAMMO SCREEN BILAT CATRINA W /CADon 08-02-2023 MG MAMMO SCREEN BILAT CATRINA W/CAD EXAM: BILATERAL SCREENING MAMMOGRAM W/TOMOSYNTHESIS AND CAD CLINICAL HISTORY: Patient is 68 years old and is seen for screening. The patient has no personal history of cancer. The patient has no family history of breast cancer. COMPARISON: The present examination has been compared to prior imaging studies performed on 11/11/2013, at [facility] on 11/13/2017, and at [facility] on 08/09/2020 and 04/10/2022. TECHNIQUE: The following mammographic views were obtained: bilateral CC, CC with tomosynthesis, MLO and MLO with tomosynthesis. Computer-aided detection was utilized by the radiologist in the interpretation of this examination. MAMMOGRAM FINDINGS: There are scattered areas of fibroglandular densities. No suspicious masses, calcifications, architectural distortion or other abnormalities are seen in either breast. IMPRESSION: There is no mammographic evidence of malignancy in either breast. Routine screening mammogram in 1 year is recommended. BI-RADS Category 1: Negative RISK ASSESSMENT: Estimated lifetime breast cancer risk: Average (less than 15%, as per the Tyrer-Cuzick/JULIENNE model) NCI Lifetime Risk Score: 4.4% Normal [facility] BASIC METABOLIC PANELon Anion gap [Moles/Vol] 12 mmol/L Normal 10-20 [facility] Comment on above: Performed By: #### CH8 ####S PATHOLOGY [id number] [place], [place], Calcium [Mass/Vol] 9.6 mg/dL Normal 8.6-10.3 [facility] Comment on above: Performed By: #### CH8 ####[facility] PATHOLOGY [id number] [place], [place], Chloride [Moles/Vol] 102 mmol/L Normal 98-107 [facility] Comment on above: Performed By: #### CH8 ####S PATHOLOGY [id number] [place], [place], CO2 [Moles/Vol] 30 mmol/L Normal 21-31 [facility] Comment on above: Performed By: #### CH8 ####S PATHOLOGY [id number] [place], [place], Creatinine [Mass/Vol] 0.90 mg/dL Normal 0.60-1.20 [facility] Comment on above: Performed By: #### CH8 ####S PATHOLOGY [id number] [place], [place], ESTIMATED GFR (CKD-EPI) 70 mL/min/1.73sqm Normal >=60 [facility] Comment on above: Result Comment: 2020 CKD EPI Equation us ing Creatinine without Race Comment: Estimated glomerular filtration rate (eGFR) is calculated without a race coefficient. Values should be interpreted in the context of the patient's full clinical presentation. Reference: 1. Jose Wagner, Joyce M, Yany ROSA, et al.. A Unifying Approach for GFR Estimation: Recommendations of the NKF-ASN Task Force on Reassessing the Inclusion of Race in Diagnosing Kidney Disease. [place] Journal of Kidney Diseases 2021;79(2):268-88.e1. 2. N Engl J Med 2020 Vol. 385 Issue 19 Pages 5950-9159 Performed By: #### C H8 ####S PATHOLOGY [id number] [place], [place], Glucose [Mass/Vol] 90 mg/dL Normal 74-109 [facility] Comment on above: Performed By: #### CH8 ####S PATHOLOGY [id number] [place], [place], Potassium [Moles/Vol] 5.0 mmol/L Normal 3.5-5.0 [facility] Comment on above: Performed By: #### CH8 ####S PATHOLOGY [id number] [place], [place], Sodium [Moles/Vol] 139 mmol/L Normal 136-145 [facility] Comment on above: Performed By: #### CH8 ####S PATHOLOGY [id number] [place], [place], Urea nitrogen [Mass/Vol] 18 mg/dL Normal 7-25 [facility] Comment on above: Performed By: #### CH8 ####M[facility] PATHOLOGY [id number] [place], [address] Basic metabolic 2000 panelon 07-26-2023 Anion gap [Moles/Vol] 12 mmol/L 10 - 20 [facility] Calcium [Mass/Vol] 9.6 mg/dL 8.6 - 10.3 mg/dL [facility] Chloride [Moles/Vol] 102 mmol/L 98 - 107 mmol/L [facility] CO2 [Moles/Vol] 30 mmol/L 21 - 31 mmol/L [facility] Creatinine [Mass/Vol] 0.90 mg/dL 0.60 - 1.20 mg/dL [facility] GFR/1.73 sq M.predicted CKD-EPI (S/P/Bld) [Vol rate/Area] 70 - PINF [facility] Comment on above: 2020 CKD EPI Equation using Creatinine w ithout Race Comment: Estimated glomerular filtration rate (eGFR) is calculated without a race coefficient. Values should be interpreted in the context of the patient's full clinical presentation. Reference: 1. Jose C, Joyce M, Yany ROSA, et al.. A Unifying Approach for GFR Estimation: Recommendations of the NKF-ASN Task Force on Reassessing the Inclusion of Race in Diagnosing Kidney Disease. [place] Journal of Kidney Diseases 202;79(2):268-88.e1. 2. N Engl J Med 2020 Vol. 385 Issue 19 Pages 9101-3009 Glucose [Mass/Vol] 90 mg/dL 74 - 109 mg/dL [facility] Interpretation and review of laboratory results Normal [facility] Potassium [Moles/Vol] 5.0 mmol/L 3.5 - 5.0 mmol/L [facility] Sodium [Moles/Vol] 139 mmol/L 136 - 145 mmol/L [facility] Urea nitrogen [Mass/Vol] 18 mg/dL 7 - 25 mg/dL [facility] Diabetes tracking panelOrder ed By: Isma Qureshi on 07-26-2023 Average glucose Estimated from glycated hemoglobin (Bld) [Mass/Vol] 123 mg/dL [facility] HbA1c (Bld) [Mass fraction] 5.9 % High 4.0 - 5.6 % [facility] Interpretation and review of laboratory results Abnormal [facility] FULL LIPID PROFILEon 024 Cholesterol [Mass/Vol] 173 mg/dL Normal <200 [facility] Comment on above: Order Comment: Note updated reference ra nges. Result Comment: Jennifer rable: < 200 mg/dL Borderline High: 200-239 mg/dL High: > = 240 mg/dL Performed By: #### V ITB12, HDL #### [facility] [address] [place] [address], Cholesterol in LDL [Mass/Vol] 93 mg/dL Normal <100 [facility] Comment on above: Order Comment: Note updated reference ra nges. Performed By: #### V ITB12, HDL #### [facility] [address] [place] [address], Cholesterol.tota l/Cholesterol in HDL [Mass ratio] 2.51 {ratio} Normal <5.00 [facility] Comment on above: Order Comment: Note updated reference ra nges. Performed By: #### V ITB12, HDL #### S PATHOLOGY LABORATORY [address] [place] [address], HDL CHOL 69 mg/dL Normal >50 [facility] Comment on above: Order Comment: Note updated reference ra nges. Performed By: #### V ITB12, HDL #### S PATHOLOGY LABORATORY [address] [place] [address], LDL/HDL 1.35 Normal <3.57 [facility] Comment on above: Order Comment: Note updated reference ra nges. Performed By: #### V ITB12, HDL #### S PATHOLOGY LABORATORY [address] [place] [address], NON-HDL CHOLESTEROL 104 mg/dL Normal <130 [facility] Comment on above: Order Comment: Note updated reference ra nges. Performed By: #### V ITB12, HDL #### [facility] [address] [place] [address], Triglyceride [Mass/Vol] 89 mg/dL Normal <150 [facility] Comment on above: Order Comment: Note updated reference ra nges. Result Comment: Norm al: < 150 mg/dL Borderline High: 150-199 mg/dL High: 200-499 mg/dL Very High: > = 500 mg/dL Performed By: #### V ITB12, HDL #### S PATHOLOGY LABORATORY [address] [place] [address], [id number] HEMOGLOBIN A1Con 07-26-2023 Glucose [Mass/Vol] 123 mg/dL Normal [facility] Comment on above: Performed By: #### HB A1C ####[facility] [address] [place], [address] HbA1c (Bld) [Mass fraction] 5.9 % High 4.0-5.6 [facility] Comment on above: Performed By: #### HB A1C ####[facility] [address] [place], [address] Lipid 1996 panelon Cholesterol [Mass/Vol] 173 mg/dL NINF - 200 mg/dL [facility] Comment on above: Desirable: < 200 mg/dL Borderline High: 200-239 mg/dL High: > = 240 mg/dL Cholesterol in HDL [Mass/Vol] 69 mg/dL 50 - PINF mg/dL [facility] Cholesterol in LDL [Mass/Vol] 93 mg/dL NINF - 100 mg/dL [facility] Cholesterol in LDL/Cholesterol in HDL [Mass ratio] 1.35 {ratio} NINF - 3.57 [facility] Cholesterol non HDL [Mass/Vol] 104 mg/dL NINF - 130 mg/dL [facility] Cholesterol.tota l/Cholesterol in HDL [Mass ratio] 2.51 {ratio} NINF - 5.00 [facility] Interpretation and review of laboratory results Normal [facility] Triglyceride [Mass/Vol] 89 mg/dL NINF - 150 mg/dL [facility] Comment on above: Normal: < 150 mg/dL Borderline High: 150-199 mg/dL High: 200-499 mg/dL Very High: > = 500 mg/dL Note updated reference ranges. [facility] Telephone Encounteron 2023 Recreational Therapy Technician Authentication Interface Message Text Identification was verified by patient verbalizing her name and date of . Message given as written below. Follow up appointment scheduled. Patient agrees with date and time. Normal [facility] VITAMIN B12 (CYANOCOBALAMIN) on 07-26-2023 Cobalamin (Vitamin B12) [Moles/Vol] 555 pg/mL 180 - 914 pg/mL [facility] Comment on above: Note Updated Reference Range. Interpretation and review of laboratory results Normal [facility] Deficient: <= 145 pg /mL Insufficient: 145 - 180 pg/mL Sufficient: 180 - 914 pg/mL [facility] Cobalamin (Vitamin B12) [Mass/Vol] 555 pg/mL Normal 180-914 [facility] Comment on above: Order Comment: Deficient: <= 145 pg/mL Insufficient: 145 - 180 pg/mL Sufficient: 180 - 914 pg/mL Result Comment: Note Updated Reference Range. Performed By: #### V ITB12, HDL #### [facility] [address] [place] [address], VITAMIN D, 25-HYDROXYon 25-hydroxyvitami n D IA [Mass/Vol] 29.4 ng/mL Low 30 - 100 ng/mL [facility] Interpretation and review of laboratory results Abnormal [facility] Deficient : <20.0 n g/mL Insufficient : 20.0-29.9 ng/mL Sufficient : 30.0 - 100.0 ng/mL Potential Toxicity : >100.0 ng/mL [facility] VITD25 29.4 ng/mL Low 30-100 [facility] Comment on above: Order Comment: Deficient : <20.0 ng/mL Insufficient : 20.0-29.9 ng/mL Sufficient : 30.0 - 100.0 ng/mL Potential Toxicity : >100.0 ng/mL Performed By: #### V ITD25 #### [facility] [address] [place] [address], Telephone Encounteron 2023 Recreational Therapy Technician Authentication Interface Message Text Please notify pt that Eunice from weight mgmt reached out to me regarding her bp readings. Would like to start her on a med called losartan. Dosing will be 25mg (lowest dose). Please assist with scheduling to see me F2F in 3-4 weeks so we can see how her bp is doing. Please ask her to bring home readings with her to visit. Thx Normal [facility] Recreational Therapy Technician Authentication Interface Message Text Pt called in regards to their blood pressure maintaining a high value since their appt on last week. It has not come down, and has been close to 153/85 on average. Was told to call back if it had not changed. Pt would like to discuss. Pt's number: [phone] Thank you! Normal [facility] Patient Instructionson 07-18 Recreational Therapy Technician Authentication Interface Message Text Victoza Take 0.6mg once a day for 2 weeks Then increase to 1.2 mg and stay on this dose as long as you are losing weight ( 1-2 pounds a week) Then can increase to 1.8 Nausea should wear off on its own as your body adjusts but please notify if not. Constipation- you need to poop at least once every 3 days. If you are not you can try miralax daily and add colace daily ( and can increase to twice a day as needed). If still not pooping regularly every 1-3 days please notify me via [employer] Goals Check BP daily and notify if staying >140/90 Increase water to 64oz a day ( 8x8oz glasses) Go to the gym on Sundays for 30 mins Throw out the junk food in the house- and then keep the junk out from then on 1/2 plate of veggies at lunch and dinner Keep carbs to 1/2 cup max per meal Normal [facility] Progress Noteson 07-19-2023 Recreational Therapy Technician Authentication Interface Message Text Sabina Judd is a 68 year old White female here for follow up in the [facility]. Patient has been following with weight management since initial visit on 12/19/21. HPI:Patient is here for medical management. 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 Hamburger macaroni, chicken with macaroni - Snacks: cupcake, ice cream - Beverages: coffee ( 1 cup- SF), diet soda, water (2 glass), peach tea ( SF) - Nocturnal ingestions: no - Eating out (# of days per week): rare - Patient Logged: No Activity: nothing outside of work Has membership at the gym but has not gone Current Outpatient Medications Medication Sig Dispense Refill Vitamin D3 (Vitamin D High Potency) 25 MCG (1000 UT) CAPS capsule Take 1 Capsule by mouth daily. To start after you finish taking the once a week dosage 90 Capsule 3 vitamin B-12 (CYANOCOBALAMIN) 1000 MCG tablet Take 1 Tablet by mouth daily. 90 Tablet 3 esomeprazole (NEXIUM) 20 MG capsule Take 1 Capsule by mouth daily. fluticasone (FLONASE) 50 mcg/act nasal inhaler Use 1 Corinne in each nostril 2 times daily. Corinne in both nostrils. 16 g 1 vitamin D2 (ERGOCALCIFEROL) 1.25 MG (55584 UT) capsule Take 1 Capsule by mouth once weekly. 12 Capsule 0 acetaminophen (TYLENOL) 325 mg tablet Take 2 Tablets by mouth every 6 hours as needed for Pain or Fever. 30 Tablet 0 conjugated estrogens (PREMARIN) 0.625 MG/GM vaginal cream Insert 1g into the vagina daily for 14 days. To start this medication use a bedtime daily for 14 days and then use twice weekly. Insert with applicator. 30 g 2 No current facility-administered medications for this visit. Review of Systems Constitutional: Negative. Eyes: Negative for blurred vision and double vision. Respiratory: Negative for cough, shortness of breath and wheezing. Cardiovascular: Negative for chest pain, palpitations, orthopnea and leg swelling. Gastrointestinal: Negative for abdominal pain, constipation, diarrhea, heartburn, nausea and vomiting. Musculoskeletal: Negative for back pain and joint pain. Skin: Negative for itching and rash. Neurological: Negative for tingling, weakness and headaches. Endo/Heme/Allergies: Does not bruise/bleed easily. Psychiatric/Behavioral: Negative for depression. The patient has insomnia. The patient is not nervous/anxious. BP 149/70 (BP Location: left arm, BP position: sitting, Cuff Size: adult) Pulse 68 Resp 18 Wt 183 lb 12.8 oz (83.4 kg) BMI 33.62 kg/m??? Physical Exam Eyes: Pupils: Pupils are equal, round, and reactive to light. Pulmonary: Effort: Pulmonary effort is normal. Skin: General: Skin is warm and dry. Neurological: Mental Status: She is alert and oriented to person, place, and time. Psychiatric: Mood and Affect: Mood and affect normal. Weight History/Log 07/19/23 183# 04/13/22 177# 12/19/21 183# initial Clinical Summary: Sabina Judd is a 66 year old female with severe obesity and the following medical problems caused by or worsened by obesity: dyslipidemia, gastroesophageal reflux disease, low back pain, and lower extremity joint pain, which can be improved with weight loss. Pertinent contributing factors include limited exercise, eating quickly, stress eating, and eating motivated by boredom Since initial visit in weight management patient has trialed the following interventions: 04/13/22-pt notes she was doing well and then with the holidays got off track and is back to snacking on junk in the evenings. She also stopped going to the gym. 07/19/23- pt notes she did not find topiramate helpful and struggled over the weekend with junk food. She has been enjoying working out in her garden but no routine exercise. Weight Loss Medication Summary: topiramate (no helpful) The patient will continue with this plan of life style modification with the adjustments listed as follows: Goals to work on until next visit: Check BP daily and notify if staying >140/90 Increase water to 64oz a day ( 8x8oz glasses) Go to the gym on Sunday mornings for 30 mins Throw out the junk food in the house- and then keep the junk out from then on 1/2 plate of veggies at lunch and dinner Keep carbs to 1/2 cup max per meal Diagnoses: (E66.9) Class 1 obesity Plan: Victoza Take 0.6mg once a day for 2 weeks Then increase to 1.2 mg and stay on this dose as long as you are losing weight ( 1-2 pounds a week) Then can increase to 1.8 Nausea should wear off on its own as your body adju (more content not included)... Normal [facility] XR Chest PA and Lateralon EXAMINATION: XR CHES T PA+LAT 2 VIEWS 03/29/2023 06:26 PM CLINICAL HISTORY: Cough ASSOCIATED DIAGNOSIS: Influenza A ORDERING PROVIDER: JASPREET PEREZ NOTE: COMPARISON: None FINDINGS: Cardiomediastinal silhouette: Normal. Lungs/Pleura: No focal pulmonary consolidation, effusion or pneumothorax. Musculoskeletal: Right hemidiaphragm elevation. Degenerative spurring within the thoracic spine. IMPRESSION: No acute cardiopulmonary abnormality identified. MACRO: None RADIOLOGY Gonzales Roberts M D - 03/29/2023 EXAMINATION: XR CHEST PA+LAT 2 VIEWS 03/29/2023 06:26 PM CLINICAL HISTORY: Cough ASSOCIATED DIAGNOSIS: Influenza A ORDERING PROVIDER: JASPREET PEREZ NOTE: COMPARISON: None FINDINGS: Cardiomediastinal silhouette: Normal. Lungs/Pleura: No focal pulmonary consolidation, effusion or pneumothorax. Musculoskeletal: Right hemidiaphragm elevation. Degenerative spurring within the thoracic spine. IMPRESSION: No acute cardiopulmonary abnormality identified. MACRO: None [facility] Radiology Study observation (narrative) [facility] XR Chest PA and LateralOrder ed By: Gonzales Roberts on 03-29-2023 [facility] Work Phone: COVID/INFLUENZAOrdered By: Raz Ulloa on 03-23-2023 FLUAV RNA RAMIRO+probe Ql (Nph) Detected Abnormal Not Detected [facility] Comment on above: This assay was performed using [employer]UAN CAR[employer] T RTPCR technology. FLUBV RNA RAMIRO+probe Ql (Nph) Not detected Not Detected [facility] Comment on above: This assay was performed using [employer] T RTPCR technology. Interpretation and review of laboratory results Abnormal [facility] SARS-CoV-2 (COVID-19) Ab IA Ql Not Detected results are indicative of the absence of SARS-CoV-2 in the specimen submitted for testing. False negative results are possible based on the timing and quality of specimen submitted for testing. [facility] SARS-CoV-2 (COVID-19) RNA RAMIRO+probe Ql (Unsp spec) Not detected Not Detected [facility] Comment on above: This assay was performed using [employer]UAN CAR[employer]OS T RTPCR technology. [facility] VITAMIN D, 25-HYDROXYon 03-23 25-hydroxyvitami n D IA [Mass/Vol] 25.2 ng/mL Low 30 - 100 ng/mL [facility] Interpretation and review of laboratory results Abnormal [facility] Diabetes tracking panelOrder ed By: Isma Qureshi on 04-13-2022 Average glucose Estimated from glycated hemoglobin (Bld) [Mass/Vol] 126 mg/dL [facility] HbA1c (Bld) [Mass fraction] 6.0 % High 4.0 - 5.6 % [facility] Interpretation and review of laboratory results Abnormal [facility] Laboratory - Chemistry and C hemistry - challengeon 04-13-2022 Cobalamin (Vitamin B12) [Moles/Vol] 205 pg/mL Low 300 - PINF pg/mL [facility] Albumin [Mass/Vol] 4.6 g/dL 3.4 - 5.1 g/dL [facility] ALP [Catalytic activity/Vol] 66 U/L [facility] ALT [Catalytic activity/Vol] 35 U/L [facility] AST [Catalytic activity/Vol] 26 U/L [facility] Bilirubin [Mass/Vol] 0.5 mg/dL 0.1 - 1.5 mg/dL [facility] Bilirubin.direct [Mass/Vol] 0.09 mg/dL Low 0.10 - 0.30 mg/dL [facility] Protein [Mass/Vol] 7.0 g/dL 5.7 - 8.1 g/dL [facility] No Panel Informationon 04-13 Interpretation and review of laboratory results Abnormal [facility] <152 pg/mL - Deficie nt 152 - 300 pg/mL- Insufficient >300 pg/mL - Sufficient [facility] Interpretation and review of laboratory results Abnormal [facility] COVID/INFLUENZAOrdered By: Armani Light on 03-18-2022 FLUAV RNA RAMIRO+probe Ql (Nph) Not detected Not Detected [facility] FLUBV RNA RAMIRO+probe Ql (Nph) Not detected Not Detected [facility] Interpretation and review of laboratory results Abnormal [facility] SARS-CoV-2 (COVID-19) RNA RAMIRO+probe Ql (Unsp spec) Detected Abnormal Not Detected [facility] RAPID STREP A W/CULTURE REFL EXon 03-18-2022 Interpretation and review of laboratory results Normal [facility] S. pyogenes Ag Ql (Throat) Negative Negative [facility] CBC panel Auto (Bld)on 12-19 Erythrocyte distribution width (RBC) [Ratio] 13.6 % 11.5 - 14.5 % [facility] Hematocrit (Bld) [Volume fraction] 39.8 % 36.0 - 46.0 % [facility] Hemoglobin (Bld) [Mass/Vol] 13.6 g/dL 12.0 - 15.0 g/dL [facility] Interpretation and review of laboratory results [facility] MCH (RBC) [Entitic mass] 31.2 pg 26.0 - 34.0 pg [facility] MCHC (RBC) [Mass/Vol] 34.3 g/dL 32.0 - 35.9 g/dL [facility] MCV (RBC) [Entitic vol] 91 fL 80 - 100 fL [facility] Platelet mean volume (Bld) [Entitic vol] 8.2 fL 7.5 - 11.2 fL [facility] Platelets (Bld) [#/Vol] 234 10*3/uL 150 - 400 K/uL [facility] RBC (Bld) [#/Vol] 4.37 10*6/uL [facility] WBC (Bld) [#/Vol] 6.5 10*3/uL 4.5 - 11.5 K/uL [facility] FERRITINon 12-19-2021 Ferritin [Mass/Vol] 72.6 ng/mL 10.3 - 219.0 ng/mL [facility] Interpretation and review of laboratory results Normal [facility] IRON AND TIBCon 12-19-2021 Interpretation and review of laboratory results Normal [facility] Iron [Mass/Vol] 84 ug/dL 45 - 160 ug/dL [facility] Iron binding capacity [Mass/Vol] 357 ug/mL 250 - 410 ug/mL [facility] saturation [Mass fraction] 24 % 20 - 55 % [facility] Transferrin [Mass/Vol] 255 mg/dL 210 - 375 mg/dL [facility] TSHon 12-19-2021 Interpretation and review of laboratory results Normal [facility] TSH Qn 1.895 m[IU]/L [facility] Comment on above: Referance range for women as ap plicable: First Trimester: 0. 050 to 3.700 uIU/mL Second Trimester: 0. 310 to 4.350 uIU/mL Third Trimester: 0. 410 to 5.180 uIU/mL [facility] VITAMIN B12 (CYANOCOBALAMIN) on 12-19-2021 Cobalamin (Vitamin B12) [Moles/Vol] 118 pg/mL Low 300 - PINF pg/mL [facility] Interpretation and review of laboratory results Abnormal [facility] <152 pg/mL - Deficie nt 152 - 300 pg/mL- Insufficient >300 pg/mL - Sufficient [facility] VITAMIN D, 25-HYDROXYon 11-21 25-hydroxyvitami n D IA [Mass/Vol] 19.9 ng/mL Low 30 - 100 ng/mL [facility] Interpretation and review of laboratory results Abnormal [facility] Basic metabolic 2000 panelon 09-13-2021 Anion gap [Moles/Vol] 12 mmol/L [facility] Calcium [Mass/Vol] 9.3 mg/dL 8.4 - 10.4 mg/dL [facility] Chloride [Moles/Vol] 104 mmol/L 97 - 111 mmol/L [facility] CO2 [Moles/Vol] 26 mmol/L 21 - 30 mmol/L [facility] Creatinine [Mass/Vol] 0.79 mg/dL 0.50 - 1.10 mg/dL [facility] GFR/1.73 sq M.predicted MDRD (S/P/Bld) [Vol rate/Area] 82 mL/min/{1.73_m2} >=60 mL/min/1.73 sqm [facility] Comment on above: 2020 CKD EPI Equation using Creatinine w ithout Race Comment: Estimated glomerular filtration rate (eGFR) is calculated without a race coefficient. Values should be interpreted in the context of the patient's full clinical presentation. Reference: 1. Jose C, Joyce M, Yany ROSA, et al.. A Unifying Approach for GFR Estimation: Recommendations of the NKF-ASN Task Force on Reassessing the Inclusion of Race in Diagnosing Kidney Disease. [place] Journal of Kidney Diseases 202;79(2):268-88.e1. 2. N Engl J Med 1 Vol. 385 Issue 19 Pages 0588-9672 Glucose [Mass/Vol] 81 mg/dL 80 - 116 mg/dL [facility] Interpretation and review of laboratory results Normal [facility] Potassium [Moles/Vol] 5.2 mmol/L 3.3 - 5.3 mmol/L [facility] Sodium [Moles/Vol] 137 mmol/L 135 - 148 mmol/L [facility] Urea nitrogen [Mass/Vol] 15 mg/dL 8 - 22 mg/dL [facility] Lipid 1996 panelon 2 Cholesterol [Mass/Vol] 213 mg/dL High <200 [facility] Cholesterol in HDL [Mass/Vol] 64 mg/dL >54 [facility] Cholesterol in LDL [Mass/Vol] 130 mg/dL High <111 [facility] Cholesterol in LDL/Cholesterol in HDL [Mass ratio] 2.03 {ratio} <3.57 [facility] Cholesterol non HDL [Mass/Vol] 149 mg/dL High <130 [facility] Cholesterol.tota l/Cholesterol in HDL [Mass ratio] 3.33 {ratio} <5.00 [facility] Interpretation and review of laboratory results Abnormal [facility] Triglyceride [Mass/Vol] 149 mg/dL <151 [facility] Amb Office-Progress Notes-Pr ovideron 10-09-2016 Amb Office-Progress Notes-Provider Patient: SABINA JUDD Age: 61 years Sex: Female : 1955 Associated Diagnoses: None Author: CHIN CRUM CNP Chief Complaint 10/09/2016 12:20 EDT pt states she is here today for possible sinus infection History of Present Illness patient presents today with a possible sinus infection. she states last week she started to have sinus HASKINS which started last Sunday. she states she has a dry cough. she states she has a alot of phlegm in her throat. she is having fevers and chills. she doesn't know if it is from the AC. she has been having nauseated. she has been taking otc gianni's allergy medications. she has been usign flonase and she states the inside of her nose has been feeling swollen. she states when it does open it vizcarra. Review of Systems Constitutional: Negative except as documented in history of present illness. Ear/Nose/Mouth/Throat: Negative except as documented in history of present illness. Respiratory: Negative except as documented in history of present illness. Cardiovascular: Negative. Psychiatric: Negative. All other systems are negative Health Status Allergies (1) Active Reactionpenicillins None DocumentedSocial & Psychosocial WjqtybOgawldi12/16/2016 Use: Never smokerHome Medications (1) ActiveFlonase 50 mcg/inh nasal spray 2 sprays, Intranasal, DAILY Histories No qualifying data availableProceduresAppendectomy .Tubal Ligation. Physical Examination Vital Signs (last 24 hrs) Last Charted Minimum Maximum Heart Rate 84 (OCT 09:20) 84 (OCT 09 12:20) 84 (OCT 09:20)Resp Rate 16 (OCT 09:20) 16 (OCT 09:20) 16 (OCT 09:20)SBP 140 (OCT 09:) 140 (OCT 09:20) 140 (OCT 09:20)DBP 70 (OCT 09:20) 70 (OCT 09:20) 70 (OCT 09:20)Weight 72.0 (OCT 09:)Height 157 (OCT 09:)BMI 29.21 (OCT 09:20) General: Alert and oriented, Mild distress. HENT: Normocephalic, Tympanic membranes are clear, Oral mucosa is moist, No pharyngeal erythema. Nose: bilateral nares erythematous. Sinus: Bilateral, Frontal sinus, Maxillary sinus, Tenderness. Glands: Bilateral, Submandibular gland, Tender. Respiratory: Lungs are clear to auscultation, Respirations are non-labored. Cardiovascular: Normal rate, Regular rhythm, No murmur. Neurologic: Alert, Oriented, Normal sensory. Psychiatric: Cooperative, Appropriate mood & affect, Normal judgment. Impression and Plan Diagnosis: 1. Acute infection of sinus Comment: use abx as prescribedrecommend saline rinse, adminisiter before flonase Other status: [facility] Office Est Lvl III15 min 83125; 10/09/2016 12:32:00 EDT, Acute infection of sinus (Completed) Additional Orders: Comment: Ordered: Azithromycin 5 Day Dose Pack 250 mg oral tablet,1 packets, ORAL, ONCE, as directed on package labeling, 6 tabs, Date: 10/09/2016 12:30:00 EDT, [id number], Tablet, 1 packets ORAL ONCE,x5 days,Instr:as directed on package labeling Ordered: Flonase 50 mcg/inh nasal spray,2 sprays, Intranasal, DAILY, # 16 g, Refill(s) 0, Date: 10/09/2016 12:31:07 EDT, Pharmacy: [id number], 2 sprays Intranasal DAILYEnd of Orders Normal [facility] Vital Signs Date Time Vital Sign Value Performing Clinician Facility 02-19-2024 08:11-0500 Body height 157.5 cm Jessica Coto APRN-RINKMAN Work Phone: [facility] 02-19-2024 08:11-0500 Body mass index (BMI) [Ratio] 30.31 kg/m2 Jessica Coto SECURITY AND COMPLIANCE ANALYST-RINKMAN [facility] 02-19-2024 08:11-0500 Body temperature 97.11 [degF] Jessica Coto APRN-RINKMAN Work Phone: [facility] 02-19-2024 08:11-0500 Body weight 75.16 kg Jessica Coto SECURITY AND COMPLIANCE ANALYST-RINKMAN [facility] 02-19-2024 08:11-0500 Diastolic blood pressure 76 mm[Hg] Jessica Coto APRN-RINKMAN [facility] 02-19-2024 08:11-0500 Heart rate 79 /min Jessica Coto APRN-RINKMAN [facility] 02-19-2024 08:11-0500 SaO2% (BldA) [Mass fraction] 97 % Jessica Coto SECURITY AND COMPLIANCE ANALYST-RINKMAN [facility] 02-19-2024 08:11-0500 Systolic blood pressure 128 mm[Hg] Jessica Coto SECURITY AND COMPLIANCE ANALYST-RINKMAN Work Phone: [facility] 12-20-2023 08:00-0400 Diastolic blood pressure 77 mm[Hg] Eunice JobSync SECURITY AND COMPLIANCE ANALYST-RINKMAN [facility] 12-20-2023 08:00-0400 Heart rate 83 /min Eunice Shahla SECURITY AND COMPLIANCE ANALYST-RINKMAN [facility] 12-20-2023 08:00-0400 Systolic blood pressure 117 mm[Hg] Eunice Gale SECURITY AND COMPLIANCE ANALYST-RINKMAN [facility] 11-26-2023 15:56-0400 Body height 157.5 cm Markus Laughlin SECURITY AND COMPLIANCE ANALYST-RINKMAN Work Phone: [facility] 11-26-2023 15:56-0400 Body mass index (BMI) [Ratio] 29.37 kg/m2 Markus Laughlin SECURITY AND COMPLIANCE ANALYST-RINKMAN Work Phone: [facility] 11-26-2023 15:56-0400 Body temperature 97.3 [degF] Markus Laughlin SECURITY AND COMPLIANCE ANALYST-RINKMAN Work Phone: [facility] 11-26-2023 15:56-0400 Body weight 72.85 kg Markus Laughlin SECURITY AND COMPLIANCE ANALYST-RINKMAN Work Phone: [facility] 11-26-2023 15:56-0400 Diastolic blood pressure 72 mm[Hg] Markus Laughlin SECURITY AND COMPLIANCE ANALYST-RINKMAN Work Phone: [facility] 11-26-2023 15:56-0400 Heart rate 82 /min Markus Laughlin SECURITY AND COMPLIANCE ANALYST-RINKMAN Work Phone: [facility] 11-26-2023 15:56-0400 Respiratory rate 18 /min Markus Laughlin SECURITY AND COMPLIANCE ANALYST-RINKMAN Work Phone: [facility] 11-26-2023 15:56-0400 SaO2% (BldA) [Mass fraction] 100 % Markus Laughlin SECURITY AND COMPLIANCE ANALYST-RINKMAN Work Phone: [facility] 11-26-2023 15:56-0400 Systolic blood pressure 122 mm[Hg] Markus Laughlin SECURITY AND COMPLIANCE ANALYST-RINKMAN Work Phone: [facility] 08-16-2023 08:50-0400 Body height 157.5 cm Jessica Coto SECURITY AND COMPLIANCE ANALYST-RINKMAN Work Phone: [facility] 08-16-2023 08:50-0400 Body mass index (BMI) [Ratio] 31.9 kg/m2 Jessica Coto SECURITY AND COMPLIANCE ANALYST-RINKMAN Work Phone: [facility] 08-16-2023 08:50-0400 Body temperature 98.2 [degF] Jessica Coto SECURITY AND COMPLIANCE ANALYST-RINKMAN Work Phone: [facility] 08-16-2023 08:50-0400 Body weight 79.11 kg Jessica Coto SECURITY AND COMPLIANCE ANALYST-RINKMAN Work Phone: [facility] 08-16-2023 08:50-0400 Diastolic blood pressure 75 mm[Hg] Jessica Coto SECURITY AND COMPLIANCE ANALYST-RINKMAN Work Phone: [facility] 08-16-2023 08:50-0400 Heart rate 78 /min Jessica Coto SECURITY AND COMPLIANCE ANALYST-RINKMAN Work Phone: [facility] 08-16-2023 08:50-0400 SaO2% (BldA) [Mass fraction] 96 % Jessica Coto SECURITY AND COMPLIANCE ANALYST-RINKMAN Work Phone: [facility] 08-16-2023 08:50-0400 Systolic blood pressure 132 mm[Hg] Jessica Coto APRN-RINKMAN Work Phone: [facility] 07-19-2023 08:35-0400 Diastolic blood pressure 77 mm[Hg] Eunice Pressnell SECURITY AND COMPLIANCE ANALYST-RINKMAN Work Phone: [facility] 07-19-2023 08:35-0400 Heart rate 69 /min Eunice Pressnell SECURITY AND COMPLIANCE ANALYST-RINKMAN Work Phone: [facility] 07-19-2023 08:35-0400 Systolic blood pressure 152 mm[Hg] Eunice Pressnell SECURITY AND COMPLIANCE ANALYST-RINKMAN Work Phone: [facility] 07-19-2023 07:50-0400 Body mass index (BMI) [Ratio] 33.62 kg/m2 Eunice Pressnell SECURITY AND COMPLIANCE ANALYST-RINKMAN Work Phone: [facility] 07-19-2023 07:50-0400 Body weight 83.37 kg Eunice Pressnell SECURITY AND COMPLIANCE ANALYST-RINKMAN Work Phone: [facility] 07-19-2023 07:50-0400 Respiratory rate 18 /min Eunice Pressnell SECURITY AND COMPLIANCE ANALYST-RINKMAN Work Phone: [facility] 04-30-2023 16:09-0400 Body mass index (BMI) [Ratio] 33.65 kg/m2 Jessica Coto SECURITY AND COMPLIANCE ANALYST-RINKMAN Other Phone: [facility] 04-30-2023 16:09-0400 Body temperature 98.2 [degF] Jessica Coto SECURITY AND COMPLIANCE ANALYST-RINKMAN Other Phone: [facility] 04-30-2023 16:09-0400 Body weight 83.46 kg Jessica Coto SECURITY AND COMPLIANCE ANALYST-RINKMAN Other Phone: [facility] 04-30-2023 16:09-0400 Diastolic blood pressure 76 mm[Hg] Jessica Coto SECURITY AND COMPLIANCE ANALYST-RINKMAN Other Phone: [facility] 04-30-2023 16:09-0400 Heart rate 96 /min Jessica Coto SECURITY AND COMPLIANCE ANALYST-RINKMAN Other Phone: [facility] 04-30-2023 16:09-0400 SaO2% (BldA) [Mass fraction] 96 % Jessica Coto SECURITY AND COMPLIANCE ANALYST-RINKMAN Other Phone: [facility] 04-30-2023 16:09-0400 Systolic blood pressure 138 mm[Hg] Jessica Coto SECURITY AND COMPLIANCE ANALYST-RINKMAN Other Phone: [facility] 03-29-2023 16:11-0500 Body height 157.5 cm Elina Koroma MD Work Phone: [facility] 03-29-2023 16:11-0500 Body mass index (BMI) [Ratio] 32.92 kg/m2 Elina Koroma MD Work Phone: [facility] 03-29-2023 16:11-0500 Body temperature 97.9 [degF] Elina Koroma MD Work Phone: [facility] 03-29-2023 16:11-0500 Body weight 81.65 kg Elina Koroma MD Work Phone: [facility] 03-29-2023 16:11-0500 Diastolic blood pressure 79 mm[Hg] Elina Koroma MD Work Phone: [facility] 03-29-2023 16:11-0500 Heart rate 86 /min Elina Koroma MD Work Phone: [facility] 03-29-2023 16:11-0500 SaO2% (BldA) [Mass fraction] 95 % Elina Koroma MD Work Phone: [facility] 03-29-2023 16:11-0500 Systolic blood pressure 150 mm[Hg] Elina Koroma MD Work Phone: [facility] 03-23-2023 14:44-0500 Body mass index (BMI) [Ratio] 33.47 kg/m2 Asha Goodwin MD Work Phone: [facility] 03-23-2023 14:44-0500 Body temperature 99.1 [degF] Asha Goodwin MD Work Phone: [facility] 03-23-2023 14:44-0500 Body weight 83.01 kg Asha Goodwin MD Work Phone: [facility] 03-23-2023 14:44-0500 Diastolic blood pressure 98 mm[Hg] Asha Goodwin MD Work Phone: [facility] 03-23-2023 14:44-0500 Heart rate 100 /min Asha Goodwin MD Work Phone: [facility] 03-23-2023 14:44-0500 Respiratory rate 16 /min Asha Goodwin MD Work Phone: [facility] 03-23-2023 14:44-0500 SaO2% (BldA) [Mass fraction] 98 % Asha Goodwin MD Work Phone: [facility] 03-23-2023 14:44-0500 Systolic blood pressure 158 mm[Hg] Asha Goodwin MD Work Phone: [facility] 04-13-2022 08:27-0500 Body mass index (BMI) [Ratio] 32.48 kg/m2 Eunice Pressnell SECURITY AND COMPLIANCE ANALYST-RINKMAN Work Phone: [facility] 04-13-2022 08:27-0500 Body weight 80.56 kg Eunice Pressnell SECURITY AND COMPLIANCE ANALYST-RINKMAN Work Phone: [facility] 04-13-2022 08:27-0500 Diastolic blood pressure 76 mm[Hg] Eunice Pressnell SECURITY AND COMPLIANCE ANALYST-RINKMAN Work Phone: [facility] 04-13-2022 08:27-0500 Heart rate 92 /min Eunice Pressnell SECURITY AND COMPLIANCE ANALYST-RINKMAN Work Phone: [facility] 04-13-2022 08:27-0500 Systolic blood pressure 139 mm[Hg] Eunice Pressnell SECURITY AND COMPLIANCE ANALYST-RINKMAN Work Phone: [facility] 03-30-2022 09:51-0500 Body height 157.5 cm Jessica Coto SECURITY AND COMPLIANCE ANALYST-RINKMAN Work Phone: [facility] 03-30-2022 09:51-0500 Body mass index (BMI) [Ratio] 32.19 kg/m2 Jessica Octo SECURITY AND COMPLIANCE ANALYST-RINKMAN Work Phone: [facility] 03-30-2022 09:51-0500 Body temperature 96.4 [degF] Jessica Coto SECURITY AND COMPLIANCE ANALYST-RINKMAN Work Phone: [facility] 03-30-2022 09:51-0500 Body weight 79.83 kg Jessica Coto SECURITY AND COMPLIANCE ANALYST-RINKMAN Work Phone: [facility] 03-30-2022 09:51-0500 Diastolic blood pressure 78 mm[Hg] Jessica Coto SECURITY AND COMPLIANCE ANALYST-RINKMAN Work Phone: [facility] 03-30-2022 09:51-0500 Heart rate 82 /min Jessica Coto SECURITY AND COMPLIANCE ANALYST-RINKMAN Work Phone: [facility] 03-30-2022 09:51-0500 SaO2% (BldA) [Mass fraction] 96 % Jessica Coto SECURITY AND COMPLIANCE ANALYST-RINKMAN Work Phone: [facility] 03-30-2022 09:51-0500 Systolic blood pressure 139 mm[Hg] Jessica Coto SECURITY AND COMPLIANCE ANALYST-RINKMAN Work Phone: [facility] 03-18-2022 18:07-0500 Heart rate 108 /min Asha Goodwin MD Work Phone: [facility] 03-18-2022 17:20-0500 Body temperature 99.7 [degF] Asha Goodwin MD Work Phone: [facility] 03-18-2022 17:20-0500 Diastolic blood pressure 98 mm[Hg] Asha Goodwin MD Work Phone: [facility] 03-18-2022 17:20-0500 Respiratory rate 17 /min Asha Goodwin MD Work Phone: [facility] 03-18-2022 17:20-0500 SaO2% (BldA) [Mass fraction] 96 % Asha Goodwin MD Work Phone: [facility] 03-18-2022 17:20-0500 Systolic blood pressure 152 mm[Hg] Asha Goodwin MD Work Phone: [facility] 01-31-2022 16:28-0500 Body height 157.5 cm Zach Bernstein MD Work Phone: [facility] 01-31-2022 16:28-0500 Body mass index (BMI) [Ratio] 31.83 kg/m2 Zach Bernstein MD Work Phone: [facility] 01-31-2022 16:28-0500 Body temperature 96.6 [degF] Zach Bernstein MD [facility] 01-31-2022 16:28-0500 Body weight 78.93 kg Zach Bernstein MD [facility] 01-31-2022 16:28-0500 Diastolic blood pressure 82 mm[Hg] Zach Bernstein MD [facility] 01-31-2022 16:28-0500 Heart rate 96 /min Zach Bernstein MD [facility] 01-31-2022 16:28-0500 SaO2% (BldA) [Mass fraction] 95 % Zach Bernstein MD [facility] 01-31-2022 16:28-0500 Systolic blood pressure 134 mm[Hg] Zach Bernstein MD [facility] 12-19-2021 08:57-0400 Diastolic blood pressure 78 mm[Hg] Zach Bernstein MD [facility] 12-19-2021 08:57-0400 Systolic blood pressure 143 mm[Hg] Zach Bernstein MD [facility] 12-19-2021 08:56-0400 Body height 157.5 cm [facility] 12-19-2021 08:56-0400 Body mass index (BMI) [Ratio] 33.47 kg/m2 Zach Bernstein MD [facility] 12-19-2021 08:56-0400 Body weight 83.01 kg Zach Bernstein MD [facility] 12-19-2021 08:56-0400 Heart rate 80 /min Zach Bernstein MD [facility] 12-19-2021 08:56-0400 SaO2% (BldA) [Mass fraction] 97 % Zach Bernstein MD Work Phone: [facility] 11-24-2021 10:48-0400 Body mass index (BMI) [Ratio] 32.92 kg/m2 Stephanie Lamphear PA-C Work Phone: [facility] 11-24-2021 10:48-0400 Body weight 81.65 kg Stephanie Lamphear PA-C Work Phone: [facility] 11-24-2021 10:48-0400 Diastolic blood pressure 84 mm[Hg] Stephanie Lamphear PA-C Work Phone: [facility] 11-24-2021 10:48-0400 Systolic blood pressure 139 mm[Hg] Stephanie Lamphear PA-C Work Phone: [facility] 09-13-2021 10:18-0400 Body height 157.5 cm Jessica Coto SECURITY AND COMPLIANCE ANALYST-RINKMAN Work Phone: [facility] 09-13-2021 10:18-0400 Body mass index (BMI) [Ratio] 32.37 kg/m2 Jessica Coto SECURITY AND COMPLIANCE ANALYST-RINKMAN Work Phone: [facility] 09-13-2021 10:18-0400 Body temperature 96.69 [degF] Jessica Coto SECURITY AND COMPLIANCE ANALYST-RINKMAN Work Phone: [facility] 09-13-2021 10:18-0400 Body weight 80.29 kg Jessica Coto SECURITY AND COMPLIANCE ANALYST-RINKMAN Work Phone: [facility] 09-13-2021 10:18-0400 Diastolic blood pressure 72 mm[Hg] Jessica Coto SECURITY AND COMPLIANCE ANALYST-RINKMAN Work Phone: [facility] 09-13-2021 10:18-0400 Heart rate 75 /min Jessica Coto SECURITY AND COMPLIANCE ANALYST-RINKMAN Work Phone: [facility] 09-13-2021 10:18-0400 Respiratory rate 16 /min Jessica Coto SECURITY AND COMPLIANCE ANALYST-RINKMAN Work Phone: [facility] 09-13-2021 10:18-0400 Systolic blood pressure 115 mm[Hg] Jessica Coto SECURITY AND COMPLIANCE ANALYST-RINKMAN Work Phone: [facility] Encounters Encounter Date Encounter Type Care Provider Facility Start: 06-19-2024 End: 06-19-2024 Orders Only Jessica Coto SECURITY AND COMPLIANCE ANALYST-RINKMAN Work Phone: [facility] Start: 06-18-2024 End: 06-19-2024 Refill Eunice JobSync SECURITY AND COMPLIANCE ANALYST-RINKMAN Work Phone: [facility] Comment on above: Refill Start: 05-01-2024 ambulatory UNKNOWN PROVIDER Facili ty:[facility] Start: 02-19-2024 End: 02-23-2024 Office outpatient visit 25 minutes Jessica Coto SECURITY AND COMPLIANCE ANALYST-RINKMAN Work Phone: [facility] Comment on above: Essential hypertensi on (Primary Dx); Prediabetes; Leg cramps; Gastroesophageal reflux disease, unspecified whether esophagitis present; Hyperkalemia; Body mass index (BMI) 30.0-30.9, adult Start: 02-19-2024 End: 02-23-2024 ambulatory UNKNOWN PROVIDER Facility:[facility] Start: 12-20-2023 End: 12-20-2023 Office outpatient visit 25 minutes OnePIN[employer]-RINKMAN Work Phone: [facility] Comment on above: Essential hypertensi on (Primary Dx); Prediabetes; Class 1 obesity; Hyperlipidemia, unspecified hyperlipidemia type Start: 12-20-2023 End: 12-20-2023 ambulatory JESSICA COTO Facility:[facility] Start: 11-27-2023 End: 11-27-2023 Telephone encounter Markus Laughlin APRN-RINKMAN Work Phone: [facility] Start: 11-26-2023 End: 11-27-2023 Ophthalmic examination and evaluation Markus Laughlin APRN-RINKMAN Work Phone: [facility] Start: 11-26-2023 End: 11-27-2023 Patient encounter procedure Markus Laughlin SECURITY AND COMPLIANCE ANALYST-RINKMAN Work Phone: [facility] Comment on above: Medicare annual well ness visit, subsequent (Primary Dx); Vitamin D deficiency; Preventative health care; Encounter for complete eye exam; Routine medical exam; Body mass index (BMI) 29.0-29.9, adult Start: 11-26-2023 End: 11-27-2023 Patient encounter status Markus Laughlin SECURITY AND COMPLIANCE ANALYST-RINKMAN Work Phone: [facility] Start: 11-26-2023 End: 11-27-2023 ambulatory JESSICA COTO Facility:[facility] Start: 10-10-2023 End: 10-10-2023 Orders Only Eunice Gale SECURITY AND COMPLIANCE ANALYST-RINKMAN Work Phone: [facility] Comment on above: Refill Start: 09-25-2023 End: 09-25-2023 [facility] Comment on above: Arrived Start: 08-16-2023 End: 08-16-2023 Office outpatient visit 15 minutes Jessica Chica SECURITY AND COMPLIANCE ANALYST-RINKMAN Work Phone: [facility] Comment on above: Essential hypertensi on (Primary Dx); Prediabetes; Hyperlipidemia, unspecified hyperlipidemia type; BMI 31.0-31.9,adult Start: 08-16-2023 End: 08-16-2023 ambulatory UNKNOWN PROVIDER Facility:[facility] Start: 07-31-2023 End: 08-02-2023 ambulatory UNKNOWN PROVIDER Facility:[facility] Start: 07-30-2023 End: 07-30-2023 Orders Only Jessica Coto SECURITY AND COMPLIANCE ANALYST-RINKMAN Work Phone: [facility] Start: 07-26-2023 End: 07-26-2023 [facility] Comment on above: Arrived Start: 07-25-2023 End: 07-26-2023 Telephone encounter To Be Assigned [facility] Comment on above: blood pressure medic ation/follow up appt Start: 07-19-2023 End: 07-19-2023 Office outpatient visit 25 minutes Eunice Gale SECURITY AND COMPLIANCE ANALYST-RINKMAN Work Phone: [facility] Comment on above: Prediabetes (Primary Dx); Class 1 obesity; Essential hypertension; Hyperlipidemia, unspecified hyperlipidemia type; Body mass index (BMI) 33.0-33.9, adult Start: 07-19-2023 End: 07-19-2023 ambulatory EUNICE GALE Facility:[facility] Start: 06-03-2023 Refill Palatine Devan munguia SECURITY AND COMPLIANCE ANALYST-RINKMAN Work Phone: [facility] Comment on above: Refill Start: 04-30-2023 End: 04-30-2023 Office outpatient visit 25 minutes Jessica Coto SECURITY AND COMPLIANCE ANALYST-RINKMAN Other Phone: [facility] Comment on above: Essential hypertensi on (Primary Dx); Hyperlipidemia, unspecified hyperlipidemia type; Dysphagia, unspecified type; Gastroesophageal reflux disease, unspecified whether esophagitis present; Prediabetes; Sinus pressure; Vitamin D deficiency; Vitamin B12 deficiency; Body mass index (BMI) 33.0-33.9, adult Start: 03-29-2023 End: 03-29-2023 Subsequent hospital visit by physician Phe Op X-Ray 4 [facility] Comment on above: Influenza A Start: 03-29-2023 End: 04-04-2023 Office outpatient visit 25 minutes Elina Koroma MD Work Phone: [facility] Comment on above: Influenza A (Primary Dx) Influenza A (Primary Dx); Body mass index (BMI) 32.0-32.9, adult Start: 03-26-2023 ambulatory Brianna blas LPN Work Phone: [facility] Management/Patient Access Start: 03-26-2023 Follow-up encounter Brianna Sood LPN Work Phone: [facility] Care Management/Patient Access Comment on above: ER follow-up; Rusty haji; Medical Record Review; Left Message To Call Back Start: 03-23-2023 End: 03-23-2023 Emergency department patient visit Asha Goodwin MD Work Phone: [facility] Emergency Department Comment on above: Flu-like Illness (FL U s/s started last night) Start: 03-02-2023 Telephone encounter Jessica yang SECURITY AND COMPLIANCE ANALYST-RINKMAN Work Phone: [facility] Internal Medicine Comment on above: Future Order Start: 10-31-2022 Refill Jessica Coto SECURITY AND COMPLIANCE ANALYST-RINKMAN Work Phone: [facility] Internal Medicine Comment on above: Refill Start: 10-06-2022 Refill Jessica Ctoo SECURITY AND COMPLIANCE ANALYST-RINKMAN Work Phone: [facility] Internal Medicine Comment on above: Refill Start: 05-25-2022 Orders Only Jake Taylor MD Work Phone: [facility] Start: 04-20-2022 ambulatory Brianna blas MANAGER STONE Work Phone: [facility] Care Management/Patient Access Start: 04-20-2022 Coordination of care plan Forest Sood MANAGER STONE Work Phone: [facility] Care Management/Patient Access Comment on above: Medical Record Revie w; Health Maintenance Outreach; Care Coordination Start: 2022 ambulatory Jessica Coto SECURITY AND COMPLIANCE ANALYST-RINKMAN Work Phone: [facility] Internal Medicine Comment on above: Medication Start: 2022 E-mail encounter fro m caregiver Jessica Coto SECURITY AND COMPLIANCE ANALYST-RINKMAN Work Phone: [facility] Internal Medicine Start: 04-13-2022 End: 04-13-2022 Clinical [facility] Pathology Comment on above: Arrived Start: 04-13-2022 End: 04-13-2022 Office outpatient visit 25 minutes Eunice Gale SECURITY AND COMPLIANCE ANALYST-RINKMAN Work Phone: [facility] Weight Management Comment on above: Hyperlipidemia, unsp ecified hyperlipidemia type (Primary Dx); Vitamin D deficiency; B12 deficiency; Class 1 obesity; Abnormal glucose; Gastroesophageal reflux disease, unspecified whether esophagitis present; Body mass index (BMI) 32.0-32.9, adult Start: 03-30-2022 End: 03-30-2022 Office outpatient visit 10 minutes Jessica Coto SECURITY AND COMPLIANCE ANALYST-RINKMAN Work Phone: [facility] Internal Medicine Comment on above: COVID-19 (Primary Dx ); Gastroesophageal reflux disease, unspecified whether esophagitis present; Body mass index (BMI) 32.0-32.9, adult Start: 03-24-2022 ambulatory Tamar FRANCIS [facility] Care Management/Patient Access Start: 03-24-2022 Follow-up encounter Tamar FRANCIS [facility] Care Management/Patient Access Comment on above: ER follow-up; COVID- 19 infection Start: 03-21-2022 ambulatory Elba santamaria RN [facility] Line Comment on above: COVID-19 infection Start: 03-18-2022 End: 03-18-2022 Emergency department patient visit Asha Goodwin MD Work Phone: [facility] Emergency Department Comment on above: Flu-like Illness (So re throat, cough, headache, runny nose, chills, nausea x 2 days. 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 ) Start: 01-31-2022 End: 02-17-2022 Office outpatient visit 15 minutes Zach Bernstein MD Work Phone: [facility] Comment on above: Gastroesophageal ref lux disease, unspecified whether esophagitis present (Primary Dx); Body mass index (BMI) 31.0-31.9, adult Start: 12-21-2021 Refill Jessica Coto SECURITY AND COMPLIANCE ANALYST-RINKMAN Work Phone: [facility] Internal Medicine Comment on above: Refill Start: 12-19-2021 End: 12-19-2021 Office outpatient new 45 minutes Zach Bernstein MD Work Phone: [facility] Comment on above: Gastroesophageal ref lux disease, unspecified whether esophagitis present (Primary Dx); Hyperlipidemia, unspecified hyperlipidemia type; Anemia, unspecified type; Vitamin D deficiency; Body mass index (BMI) 33.0-33.9, adult Start: 11-24-2021 Letter encounter Jessica Chica COUGHLIN Work Phone: [facility] RETAIL SALES LEAD Start: 11-24-2021 End: 11-24-2021 Patient encounter status Stephanie Edmond PA-C Work Phone: [facility] RETAIL SALES LEAD Start: 11-24-2021 End: 11-24-2021 Periodic preventive med est patient 65yrs& older Stephanie Edmond PA-C Work Phone: [facility] RETAIL SALES LEAD Comment on above: Encounter for gyneco logical examination without abnormal finding (Primary Dx); Obesity (BMI 30.0-34.9); KARAN (stress urinary incontinence, female); Atrophic vaginitis; Burning with urination; Cystocele, midline; Needs flu shot; Body mass index (BMI) 32.0-32.9, adult Start: 10-10-2021 Refill Jessica COUGHLIN Work Phone: [facility] Comment on above: Refill Start: 09-13-2021 End: 09-13-2021 [facility] Provider [facility] Comment on above: Arrived Start: 09-13-2021 End: 09-13-2021 Patient encounter procedure Jessica COUGHLIN Work Phone: [facility] Internal Medicine Comment on above: Routine medical exam (Primary Dx); Gastroesophageal reflux disease, unspecified whether esophagitis present; Hyperlipidemia, unspecified hyperlipidemia type; Allergic rhinitis, unspecified seasonality, unspecified trigger; Immunization due; Body mass index (BMI) 32.0-32.9, adult Start: 09-13-2021 End: 09-13-2021 Patient encounter status Jessica COUGHLIN Work Phone: [facility] Internal Medicine Start: 08-09-2021 End: 08-09-2021 Nursing evaluation of patient and report [facility] Nurse Work Phone: [facility] Internal Medicine Comment on above: Encounter for immuni zation (Primary Dx) Start: 07-05-2021 ambulatory Shobha Boston [facility] Care Management/Patient Access Start: 07-05-2021 Coordination of care plan Shobha Boston [facility] Care Management/Patient Access Comment on above: Health Maintenance O utrea; Care Coordination; Reminder Letter Sent; Left Message To Call Back Start: 07-04-2021 Letter encounter Jessica Coto SECURITY AND COMPLIANCE ANALYST-RINKMAN Work Phone: [facility] Population Health Outreach Start: 10-09-2016 End: 10-10-2016 Ambulatory CHIN AUGUSTINE Facility:[facility] Procedures Date Procedure Procedure Detail Performing Clinician Start: 11-26-2023 25 hydroxy includes fractions if performed Markus Laughlin SECURITY AND COMPLIANCE ANALYST-RINKMAN Work Phone: Start: 09-25-2023 Basic metabolic pane l calcium total Jessica Coto SECURITY AND COMPLIANCE ANALYST-RINKMAN Work Phone: Start: 07-26-2023 25 hydroxy includes fractions if performed Jessicaraz Coto SECURITY AND COMPLIANCE ANALYST-RINKMAN Work Phone: Start: 03-29-2023 Radiologic exam ches t 2 views Elina Koroma MD Work Phone: Start: 03-23-2023 COVID/INFLUENZA Asha Goodwin MD Work Phone: Start: 04-13-2022 25 hydroxy includes fractions if performed Eunice Gale SECURITY AND COMPLIANCE ANALYST-RINKMAN Work Phone: Start: 04-13-2022 Hepatic function panel Eunice Gale SECURITY AND COMPLIANCE ANALYST-RINKMAN Work Phone: Start: 03-18-2022 Iaadiadoo streptococ cus group a Shobha Mckeon SECURITY AND COMPLIANCE ANALYST-RINKMAN Work Phone: Start: 03-18-2022 COVID/INFLUENZA Froilan Mckeon SECURITY AND COMPLIANCE ANALYST-RINKMAN Work Phone: Start: 12-19-2021 25 hydroxy includes fractions if performed Zach Bernstein MD Work Phone: Start: 09-13-2021 Lipoprotein dir alana high density cholesterol Jessica Coto APRN-RINKMAN Work Phone: Plan of Treatment Date Care Activity Detail Author Start: 03-05-2033 Tetanus vaccination Tetanus (T d or Tdap) Booster [facility] Start: 07-25-2028 Cholesterol [Mass/volume] in Serum or Plasma Cholesterol [facility] Start: 07-25-2028 Lipid panel [facility] Start: 09-13-2026 Cholesterol [Mass/volume] in Serum or Plasma Cholesterol [facility] Start: 08-09-2025 Cholesterol [Mass/volume] in Serum or Plasma Cholesterol [facility] Start: 11-26-2024 COVID-19 Vaccine () COVID-19 Vaccine () [facility] Comment on above: Postponed from 10/20 (Patient declined) Start: 11-25-2024 Creatinine measurement Basic Metabol ic Panel [facility] Start: 11-25-2024 Hemoglobin A1c measurement Hemoglobin A1C [facility] Start: 11-19-2024 Annual Wellness Visi t (G0439) Annual Wellness Visit (G0439) [facility] Start: 09-24-2024 Creatinine measurement Basic Metabol ic Panel [facility] Start: 09-06-2024 Screening for malign ant neoplasm of colon [facility] Start: 08-19-2024 End: 08-19-2024 Patient encounter procedure 08/19/2024 8:00 AM EDT Office Visit [facility] [address] [place] [address] Jessica Coto APRN-RINKMAN [address] [place] [address] [facility] Start: 08-18-2024 End: 08-18-2024 Patient encounter procedure 08/18/2024 8:00 AM EDT Office Visit [facility] [address] [place] [address] Jessica Coto APRN-CNP [address] [place] [address] [facility] Start: 07-30-2024 Screening for malign ant [facility]oplasm [facility] Start: 07-25-2024 Creatinine measurement Basic Metabol ic Panel [facility] Start: 07-25-2024 Hemoglobin A1c measurement Hemoglobin A1C [facility] Start: 07-22-2024 Screening for malign ant neoplasm of breast Mammography [facility] Start: 06-26-2024 End: 06-26-2024 Patient encounter procedure 06/26/2024 8:00 AM EDT Office Visit [facility] Weight Management [address] [place] [address] Eunice Gale, SECURITY AND COMPLIANCE ANALYST-RINKMAN [address] [place] [address] [facility] Start: 06-19-2024 End: 06-19-2025 DBT Breast - bilateral screening MG MAMMO SCREEN BILAT CATRINA W/CAD Imaging Routine Screening mammogram for breast cancer Expected: 06/19/2024, Expires: 06/19/2025 [facility] Work Phone: Comment on above: Expected: 06/19/2024 , Expires: 06/19/2025 Start: 05-20-2024 Screening for malign ant neoplasm of breast Mammography [facility] Start: 04-29-2024 Hepatitis A (HAV) Vaccine (optional start 19+ years) Hepatitis A (HAV) Vaccine (optional start 19+ years) [facility] Comment on above: Postponed from 04/15 (Patient declined) Start: 04-29-2024 Hepatitis B (HBV) Vaccine (optional start 60+ years) Hepatitis B (HBV) Vaccine (optional start 60+ years) [facility] Comment on above: Postponed from 04/15 (Patient declined) Start: 02-19-2024 End: 02-19-2024 Patient encounter procedure 02/19/2024 8:20 AM EST Office Visit [facility] [address] [place] [phone] Jessica Coto APRN-RINKMAN [address] [place] [address] [facility] Start: 12-20-2023 End: 12-20-2023 Patient encounter procedure 12/20/2023 8:30 AM EDT Office Visit [facility] [address] [place] [address] Eunice Gale SECURITY AND COMPLIANCE ANALYST-RINKMAN [address] [place] [address] [facility] Start: 11-20-2023 Influenza vaccination Influenza Vacc ine (#1) [facility] Start: 10-21-2023 Annual Wellness Visi t (G0439) Annual Wellness Visit (G0439) [facility] Start: 09-28-2023 Annual Wellness Visi t (G0439) Annual Wellness Visit (G0439) [facility] Start: 08-16-2023 End: 08-16-2023 Patient encounter procedure 08/16/2023 9:00 AM EDT Office Visit [facility] [address] [place] [address] Jessica Coto SECURITY AND COMPLIANCE ANALYST-RINKMAN [address] [place] [address] [facility] Start: 08-04-2023 Screening for malign ant neoplasm of colon [facility] Start: 07-31-2023 End: 07-31-2023 Professional / ancillary services management 07/31/2023 7:45 AM EDT Ancillary Procedure [facility] Mammography [address] [place] [address] [facility] Start: 07-23-2023 End: 07-23-2023 Professional / ancillary services management 07/23/2023 3:15 PM EDT Ancillary Procedure [facility] Mammography [address] [place] [address] [facility] Start: 07-19-2023 End: 07-19-2023 Patient encounter procedure [facility] Start: 05-21-2023 End: 05-21-2023 Professional / ancillary services management 05/21/2023 8:30 AM EDT Ancillary Procedure [facility] [address] [place] [address] [facility] Start: 04-30-2023 End: 04-30-2023 Patient encounter procedure 04/30/2023 4:20 PM EDT Office Visit [facility] Internal Medicine [address] [place] [phone] Jessica Coto APRN-RALPH [address] [place] [address] [facility] Start: 04-13-2023 Hemoglobin A1c measurement Hemoglobin A1C [facility] Start: 04-10-2023 Screening for malign ant neoplasm of breast Mammography [facility] Start: 03-29-2023 End: 03-29-2023 Patient encounter procedure 03/29/2023 4:15 PM EST Office Visit [facility] Medicine [address] [place] [address] Elina Koroma MD [address] [place] [address] [facility] Start: 03-08-2023 End: 03-08-2023 Patient encounter procedure 03/08/2023 8:30 AM EST Office Visit [facility] [address] [place] [address] Eunice Gale APRN-RINKMAN [address] [place] [address] [facility] Start: 03-04-2023 End: 03-04-2024 DBT Breast - bilateral screening MG MAMMO SCREEN BILAT CATRINA W/CAD Imaging Routine Encounter for screening mammogram for malignant neoplasm of breast Expected: 03/04/2023, Expires: 03/04/2024 [facility] Work Phone: Comment on above: Expected: 03/04/2023 , Expires: 03/04/2024 Start: 02-17-2023 [facility]anus vaccination [facility] Start: 01-16-2023 Screening for malign ant neoplasm of breast Mammography [facility] Start: 11-19-2022 Influenza vaccination Influenza Vacc ine (#1) [facility] Start: 11-02-2022 End: 11-02-2022 Patient encounter procedure 11/02/2022 8:00 AM EDT Office Visit [facility] [id number] [place] [address] Eunice Gale, SECURITY AND COMPLIANCE ANALYST-RINKMAN [address] [place] [address] [facility] Start: 10-20-2022 COVID-19 Vaccine () COVID-19 Vaccine () [facility] Start: 09-27-2022 End: 09-27-2022 Patient encounter procedure 09/27/2022 Office Visit Internal Medicine Jessica Coto APRN-RALPH [address] [place] [address] [facility] Start: 09-13-2022 Creatinine measurement Basic Metabol ic Panel [facility] Start: 08-19-2022 Annual Wellness Visi t (G0439) Annual Wellness Visit (G0439) [facility] Start: 07-20-2022 End: 07-20-2022 Patient encounter procedure 07/20/2022 Office Visit Internal Medicine Eunice Gale, SECURITY AND COMPLIANCE ANALYST-RINKMAN [address] [place] [address] [facility] Start: 06-21-2022 Measurement of occul t blood in single stool specimen FIT [facility] Start: 06-21-2022 Screening for malign ant neoplasm of colon [facility] Start: 04-20-2022 End: 04-13-2023 25 hydroxy includes fractions if performed VITAMIN D, 25-HYDROXY Lab Routine Hyperlipidemia, unspecified hyperlipidemia type Vitamin D deficiency B12 deficiency Class 1 obesity Expected: 04/20/2022, Expires: 04/13/2023 [facility] Comment on above: Expected: 04/20/2022 , Expires: 04/13/2023 Start: 04-20-2022 End: 04-13-2023 Diabetes tracking panel HEMOGLOBIN A1C Lab Routine Hyperlipidemia, unspecified hyperlipidemia type Vitamin D deficiency B12 deficiency Class 1 obesity Abnormal glucose Expected: 04/20/2022, Expires: 04/13/2023 [facility] Work Phone: Comment on above: Expected: 04/20/2022 , Expires: 04/13/2023 Start: 04-13-2022 End: 04-13-2022 Patient encounter procedure 04/13/2022 Office Visit Internal Medicine Eunice Gale SECURITY AND COMPLIANCE ANALYST-RINKMAN [address] [place] [address] [facility] Start: 04-10-2022 End: 04-10-2022 Professional / ancillary services management 04/10/2022 Ancillary Procedure Radiology [facility] Start: 03-30-2022 End: 03-30-2022 Patient encounter procedure 03/30/2022 Office Visit Internal Medicine Angie Sumner SECURITY AND COMPLIANCE ANALYST-RINKMAN [address] [place] [address] [facility] Start: 01-31-2022 End: 01-31-2022 Patient encounter procedure 01/31/2022 Office Visit Internal Medicine Zach Bernstein MD [address] [place] [address] [facility] Start: 01-16-2022 End: 01-16-2022 Professional / ancillary services management 01/16/2022 Ancillary Procedure Radiology [facility] Start: 11-19-2021 Influenza vaccination Influenza Vacc ine (#1) [facility] Start: 11-08-2021 COVID-19 Vaccine (5 - Booster for Moderna series) COVID-19 Vaccine (5 - Booster for Moderna series) [facility] Start: 11-08-2021 COVID-19 Vaccine (5 - Moderna series) COVID-19 Vaccine (5 - Moderna series) [facility] Start: 09-13-2021 End: 09-13-2021 Patient encounter procedure [facility] Comment on above: Arrived Start: 08-09-2021 Pneumococcal vaccination Pneum ococcal Vaccine(s) (65+ yrs) (2 - PPSV23 or PCV20) [facility] Start: 08-09-2021 Screening for malign ant neoplasm of breast Mammography [facility] Start: 08-09-2021 End: 08-09-2021 Nursing evaluation of patient and report 08/09/2021 Nurse Visit Internal Medicine [facility] Start: 07-04-2021 End: 07-04-2022 Screening mammography bi 2-view breast inc cad MG MAMMO SCREEN BILAT CATRINA W/CAD Imaging Routine Screening Mammogram For Breast Cancer Expected: 07/04/2021, Expires: 07/04/2022 [facility] Work Phone: Comment on above: Expected: 07/04/2021 , Expires: 07/04/2022 Start: 06-04-2021 COVID-19 Vaccine (4 - Booster for Moderna series) COVID-19 Vaccine (4 - Booster for Moderna series) [facility] Start: 03-22-2021 Annual wellness visit Annual W ellness Visit (G0438) [facility] Start: 2015 Hepatitis B (HBV) Vaccine (optional start 60+ years) Hepatitis B (HBV) Vaccine (optional start 60+ years) [facility] Start: 2015 RSV vaccine (optiona l 60+ years) RSV vaccine (optional 60+ years) [facility] Start: 2000 Screening for malign ant neoplasm of colon [facility] Start: 1974 Hepatitis A (HAV) Vaccine (optional start 19+ years) Hepatitis A (HAV) Vaccine (optional start 19+ years) [facility] Start: 1955 Screening for malign ant neoplasm of colon Colonoscopy [facility] 25 hydroxy includes fractions if performed VITAMIN D, 25-HYDROXY Lab Routine Hyperlipidemia, unspecified hyperlipidemia type Vitamin D deficiency B12 deficiency Class 1 obesity 04/13/2022 9:03 AM EST [facility] End: 04-29-2024 25 hydroxy includes fractions if performed VITAMIN D, 25-HYDROXY Lab Routine Vitamin D deficiency 1 Occurrences starting 04/30/2023 until 04/29/2024 [facility] [employer] [facility] Work Phone: Comment on above: 1 Occurrences starti ng 04/30/2023 until 04/29/2024 End: 11-15-2024 Assay of magnesium MAGNESIUM Lab Routine Leg cramps 1 Occurrences starting 02/19/2024 until 11/15/2024 [facility] [employer] [facility] Work Phone: Comment on above: 1 Occurrences starti ng 02/19/2024 until 11/15/2024 End: 02-18-2025 Assay of thyroid stimulating hormone tsh TSH Lab Routine Leg cramps 1 Occurrences starting 02/19/2024 until 02/18/2025 [employer] Comment on above: 1 Occurrences starti ng 02/19/2024 until 02/18/2025 End: 06-10-2022 Basic metabolic 2000 panel - Serum or Plasma BASIC METABOLIC PANEL Lab Routine Routine medical exam 1 Occurrences starting 09/13/2021 until 06/10/2022 [facility] [employer] [facility] Work Phone: Comment on above: 1 Occurrences starti ng 09/13/2021 until 06/10/2022 Basic metabolic 2000 panel - Serum or Plasma BASIC METABOLIC PANEL Lab Routine Routine medical exam 09/13/2021 11:20 AM EDT [employer] End: 05-11-2024 Basic metabolic 2000 panel - Serum or Plasma BASIC METABOLIC PANEL Lab Routine Essential hypertension 1 Occurrences starting 08/16/2023 until 05/11/2024 [facility] [employer] [facility] Work Phone: Comment on above: 1 Occurrences starti ng 08/16/2023 until 05/11/2024 End: 04-29-2024 Basic metabolic 2000 panel - Serum or Plasma BASIC METABOLIC PANEL Lab Routine Essential hypertension 1 Occurrences starting 04/30/2023 until 04/29/2024 [facility] [employer] [facility] Work Phone: Comment on above: 1 Occurrences starti ng 04/30/2023 until 04/29/2024 Blood occult fecal h gb deter ia qual feces 1-3 FECAL IMMUNOCHEMICAL TEST (FIT) Lab Routine Colon cancer screening Ordered: 05/25/2022 [facility] [employer] [facility] Work Phone: Comment on above: Ordered: 05/25/2022 Blood occult fecal h gb deter ia qual feces 1-3 FECAL IMMUNOCHEMICAL TEST (FIT) Lab Routine Colon cancer screening Ordered: 07/30/2023 [facility] [employer] [facility] Work Phone: Comment on above: Ordered: 07/30/2023 End: 03-18-2022 Cul prsmptv pthgnc organism scrn w/colony estimj [facility] [employer] [facility] Work Phone: Comment on above: One time for 1 Occur rences starting 03/18/2022 until 03/18/2022 End: 04-29-2024 Cyanocobalamin vitamin b-12 VITAMIN B12 (CYANOCOBALAMIN) Lab Routine Vitamin B12 deficiency 1 Occurrences starting 04/30/2023 until 04/29/2024 [facility] [employer] [facility] Work Phone: Comment on above: 1 Occurrences starti ng 04/30/2023 until 04/29/2024 Diabetes tracking panel HEMOGLOB IN A1C Lab Routine Hyperlipidemia, unspecified hyperlipidemia type Vitamin D deficiency B12 deficiency Class 1 obesity Abnormal glucose 04/13/2022 9:03 AM EST [employer] End: 04-29-2024 Diabetes tracking panel HEMOGLOBIN A1C Lab Routine Prediabetes 1 Occurrences starting 04/30/2023 until 04/29/2024 [facility] [employer] [facility] Work Phone: Comment on above: 1 Occurrences starti ng 04/30/2023 until 04/29/2024 End: 06-10-2022 Lipid 1996 panel - Serum or Plasma FULL LIPID PROFILE Lab Routine Routine medical exam Hyperlipidemia, unspecified hyperlipidemia type 1 Occurrences starting 09/13/2021 until 06/10/2022 [employer] Comment on above: 1 Occurrences starti ng 09/13/2021 until 06/10/2022 Lipid 1996 panel - S cassandra or Plasma FULL LIPID PROFILE Lab Routine Routine medical exam Hyperlipidemia, unspecified hyperlipidemia type 09/13/2021 11:20 AM EDT [employer] End: 04-29-2024 Lipid 1996 panel - Serum or Plasma FULL LIPID PROFILE Lab Routine Hyperlipidemia, unspecified hyperlipidemia type 1 Occurrences starting 04/30/2023 until 04/29/2024 [facility] [employer] [facility] Work Phone: Comment on above: 1 Occurrences starti ng 04/30/2023 until 04/29/2024 End: 02-27-2024 Potassium serum plasma/whole blood POTASSIUM Lab Routine Serum potassium elevated 1 Occurrences starting 11/27/2023 until 02/27/2024 [facility] Work Phone: Comment on above: 1 Occurrences starti ng 11/27/2023 until 02/27/2024 Urnls dip stick/tabl et rgnt auto w/o microscopy [facility] Work Phone: Immunizations Immunization Date Immunization Notes [facility] Provider [facility]12-2023 COVID-19 Vaccine (12 + yrs, [employer]) mRNA, spike protein, LNP, pres. free, 30 mcg/0.3mL dose, brandon-sucrose (FNK=[id number]) Eunice Gale SECURITY AND COMPLIANCE ANALYST-RINKMAN Work Phone: [facility] 11-26-2023 influenza, high dose seasonal, preservative-free Markus Laughlin SECURITY AND COMPLIANCE ANALYST-RINKMAN Work Phone: [facility] 11-26-2023 Hemoglobin A1C Markus Laughlin SECURITY AND COMPLIANCE ANALYST-RINKMAN Work Phone: [facility] 07-26-2023 Hem[facility] A[facility]C [facility] Respiratory syncytia l virus (RSV), vaccine, bivalent, protein subunit RSV prefusion F, diluent reconstituted, 0.5 mL, preservative free (DHK=432) Asha Goodwin MD Work Phone: [facility] 03-05-2023 tetanus toxoid, redu francine diphtheria toxoid, and acellular pertussis vaccine, adsorbed Asha Goodwin MD Work Phone: [facility] 03-04-2023 diphtheria, tetanus toxoids and acellular pertussis vaccine, unspecified formulation Jessica Coot SECURITY AND COMPLIANCE ANALYST-RINKMAN Work Phone: [facility] 03-04-2023 RSV Pre-Fusion F A&B Recombinant vaccine (ABRYSVO) 120 MCG/0.5ML SOLR IM injection Jessica Chica SECURITY AND COMPLIANCE ANALYST-RINKMAN Work Phone: [facility] 11-09-2022 Influenza, injectabl e, high-dose seasonal, quadrivalent, 0.7 mL, preservative free (NTC=302) Jessica Coto SECURITY AND COMPLIANCE ANALYST-RINKMAN Work Phone: [facility] 11-09-2022 influenza virus vaccine, unspecified formulation [facility] 04-13-2022 Hemoglobin A1C [facility] 11-24-2021 influenza, injectabl e, quadrivalent, preservative free Jessica Coto SECURITY AND COMPLIANCE ANALYST-RINKMAN Work Phone: [facility] Work Phone: 11-24-2021 influenza virus vaccine, unspecified formulation Jessica Coto SECURITY AND COMPLIANCE ANALYST-RINKMAN Work Phone: [facility] 09-13-2021 Pfizer (12+ yrs) SARS-COV-2 (COVID-19) vaccine, mRNA, spike protein, LNP, pres. free, 30 mcg/0.3mL dose, brandon-sucrose (SGO=087) Jessica Coto SECURITY AND COMPLIANCE ANALYST-RINKMAN Work Phone: [facility] Work Phone: 08-09-2021 Pneumococcal conjuga te 20 valent (PCV20), polysaccharide [id number] conjugate, adjuvant, PF (NJC=861) Phe Nurse Work Phone: [facility] 02-03-2021 Moderna Monovalent ( 12+ yrs) COVID-19 vaccine, mRNA, spike protein, LNP, PF, 100 mcg/0.5 mL (CSU=235) Jessica Coto SECURITY AND COMPLIANCE ANALYST-RINKMAN Work Phone: [facility] 11-25-2020 Influenza, seasonal vaccine, quadrivalent, adjuvanted, 0.5mL dose, preservative free (MNH=952) Jessica Coto SECURITY AND COMPLIANCE ANALYST-RINKMAN Work Phone: [facility] 11-25-2020 influenza virus vaccine, unspecified formulation Jessica Coto SECURITY AND COMPLIANCE ANALYST-RINKMAN Work Phone: [facility] 10-15-2020 zoster vaccine recombinant Jessica Chica SECURITY AND COMPLIANCE ANALYST-RINKMAN Work Phone: [facility] 08-09-2020 pneumococcal conjuga te vaccine, 13 valent Jessica Chica SECURITY AND COMPLIANCE ANALYST-RINKMAN Work Phone: [facility] 08-09-2020 zoster vaccine recombinant Jessica Chica SECURITY AND COMPLIANCE ANALYST-RINKMAN Work Phone: [facility] 04-18-2020 Moderna SARS-COV-2 (COVID-19) vaccine, mRNA, spike protein, LNP, preservative free, 100 mcg/0.5 mL (primary) or 50 mcg/0.25 mL (booster) (KOP=562) Jessica Chica SECURITY AND COMPLIANCE ANALYST-RINKMAN Work Phone: [facility] 03-10-2020 Moderna SARS-COV-2 (COVID-19) vaccine, mRNA, spike protein, LNP, preservative free, 100 mcg/0.5 mL (primary) or 50 mcg/0.25 mL (booster) (ZFP=164) Jessica Coto SECURITY AND COMPLIANCE ANALYST-RINKMAN Work Phone: [facility] 03-25-2019 tuberculin skin test ; purified protein derivative solution, intradermal Jessica Chica SECURITY AND COMPLIANCE ANALYST-RINKMAN Work Phone: [facility] Work Phone: 01-07-2019 influenza, injectabl e, quadrivalent, preservative free Jessica Coto SECURITY AND COMPLIANCE ANALYST-RINKMAN Work Phone: [facility] 11-03-2017 influenza, injectabl e, quadrivalent, preservative free Jessica Coto SECURITY AND COMPLIANCE ANALYST-RINKMAN Work Phone: [facility] 01-26-2017 influenza, injectabl e, quadrivalent, preservative free Jessica Coto SECURITY AND COMPLIANCE ANALYST-RINKMAN Work Phone: [facility] 12-20-2011 influenza virus vaccine, unspecified formulation Jessica Chica SECURITY AND COMPLIANCE ANALYST-RINKMAN Work Phone: [facility] Work Phone: 04-25-2011 influenza, seasonal, injectable Jessica Coto SECURITY AND COMPLIANCE ANALYST-RINKMAN Work Phone: [facility] Payers Date Payer Category Payer [employer] ANTHEM - MEDICARE [id number] 2021 Medicare [id number] 2020 Medicare [id number] 1955 Unknown [id number] 1955 Unknown [id number] 1955 Unknown [id number] 1955 Unknown [id number] 1955 Unknown [id number] 1955 Unknown [id number] 1955 Unknown [id number] 1955 Unknown [id number] 1955 Unknown [id number] 1955 Unknown [id number] Social History Date Type Detail Facility Start: 03-21-2012 End: 08-16-2023 Tobacco smoking status NHIS Ex-smoker [facility] Start: 03-21-1985 End: 03-21-2005 History of tobacco use Current smoker [facility] Start: 03-21-2012 End: 07-19-2023 Cigarettes smoked current (pack per day) - Reported 0.8 [facility] Start: 03-21-2012 End: 08-16-2023 Tobacco use and exposure Smokeless tobacco non-user [facility] Start: 08-09-2020 End: 04-01-2024 Alcohol intake Current non-drinker of alcohol (finding) [facility] Start: 1955 Sex Assigned At Not on file [facility] Start: 07-30-2021 End: 04-13-2022 Exposure to SARS-CoV-2 (event) Not sure [facility] Start: 03-21-1985 End: 03-21-2005 History of tobacco use Cigarette Smoker [facility] Start: 11-24-2021 History SDOH Social Connections Phone 98 [facility] Start: 11-24-2021 History SDOH Social Connections Anabaptism 2 [facility] Start: 11-24-2021 History SDOH Social Connections Membership 1 [facility] Start: 11-24-2021 History SDOH Physical Activity DPW 0 [facility] Start: 11-24-2021 History SDOH Financial 5 [facility] Start: 11-24-2021 Education 14 [facility] Start: 1955 Sex Assigned At Female [facility] Start: 10-31-2021 Gender identity Identifies as female gender (finding) [facility] Start: 10-31-2021 Sexual orientation Heterosexual (finding) [facility] Start: 11-24-2021 End: 07-19-2023 Humiliation, Afraid, Rape, and Kick questionnaire [HARK] [facility] Within the last year , have you been afraid of your partner or ex-partner? No [facility] In a typical week, h ow many times do you talk on the telephone with family, friends, or neighbors? Patient refused [facility] Do you belong to any clubs or organizations such as latter-day groups, unions, [employer] or athletic groups, or school groups? Yes [employer] Work Phone: Are you now , , , , never or living with a partner? Refused [employer] Work Phone: Do you feel stress - tense, restless, nervous, or anxious, or unable to sleep at night because your mind is troubled all the time - these days [OSQ] Not at all [employer] Work Phone: (I/We) worried whekiara er (my/our) food would run out before (I/we) got money to buy more. Never true [facility] Are you now , , , , never or living with a partner? [facility] Start: 12-24-2011 Sex Female (finding) [facility] Medical Equipment Procedure Code Equipment Code Equipment Origin al Text Equipment Identifier Dates Use 1 needle per day under the skin to be used with victoza pen [id number] Start: 07-19-2023 Goals Date Patient Goal Desired Activity /State Personal health goal Functional Status Date Assessment Result Facility 11-27-2023 Are you deaf, or do you have serious difficulty hearing No 11/27/2023 9:52 AM EDT Markus Laughlin APRN-CNP No [facility] 11-27-2023 Are you blind, or do you have serious difficulty seeing, even when wearing glasses No 11/27/2023 9:52 AM EDT Markus Laughlin APRN-CNP No [facility] 11-27-2023 Do you have serious difficulty walking or climbing stairs No 11/27/2023 9:52 AM EDT Markus Laughlin APRN-CNP No [facility] 11-27-2023 Do you have difficul ty dressing or bathing No 11/27/2023 9:52 AM EDT Markus Laughlin APRN-CNP No [facility] 11-27-2023 Because of a physica l, mental, or emotional condition, do you have difficulty doing errands alone such as visiting a physician's office or shopping No 11/27/2023 9:52 AM EDT Markus Laughlin APRN-CNP No [facility] Mental Status Date Assessment Result Facility 11-27-2023 Because of a physica l, mental, or emotional condition, do you have serious difficulty concentrating, remembering, or making decisions No 11/27/2023 9:52 AM EDT Markus Laughlin APRN-CNP No [facility] Clinical Notes 07-05-2021 to 02-23-2024 Assessment & Plan Note - Jessica Coto APRN-CNP - 02/23/2024 4:14 PM ESTAssessment & Plan Note - Jessica Coto APRN-CNP - 02/23/2024 4:14 PM ESTPatient InstructionsPatient Instructions Note Date & Type Note Facility 02-23-2024 Evaluation + Plan note Associated Problem(s): Prediabetes A1c back in normal range on recent check. [facility] 02-23-2024 Evaluation + Plan note Associated Problem(s): Essential hypertension Adequately managed on current med(s)/tx. No change in tx plan at this time. [facility] 02-23-2024 Evaluation + Plan note Associated Problem(s): Gastroesophageal reflux disease Continue nexium. Pt to notify me if symptoms are not improving/worsen. Orders: esomeprazole (NEXIUM) 20 MG capsule; Take 1 Capsule by mouth daily. [facility] 02-23-2024 Miscellaneous Notes Associated Problem(s): Prediabetes A1c back in normal range on recent check. Associated Problem(s): Essential hypertension Adequately managed on current med(s)/tx. No change in tx plan at this time. Associated Problem(s): Gastroesophageal reflux disease Continue nexium. Pt to notify me if symptoms are not improving/worsen. Orders: esomeprazole (NEXIUM) 20 MG capsule; Take 1 Capsule by mouth daily. documented in this encounter [facility] 02-19-2024 History of Present illness Narrative Chief Complaint Patient presents with Monitoring/follow-up Subjective Chief Complaint: Sabina Judd presents for routine follow up visit Comes to the visit unaccompanied. Last visit with PCP (JESSICA COTO) was 08/16/2023 Narrative Summary: Feels well overall BP is controlled today Pt denies chest pain, sob, palpitations, leg swelling, dizziness, lightheadedness, and headaches Current med regimen is well tolerated; no side effects Has been getting a lot of leg cramps Mostly at nighttime Increase in heartburn recently Missed a dose of nexium recently and had been eating more w/ the holidays Denies abdominal pain, nausea, vomiting No dysphagia or odynophagia No unintentional weight loss Remains on victoza; follows w/ wt mgmt Weight up slightly Feels like this may be d/t her eating habits around the holidays ROS: Review of Systems All other systems reviewed and are negative. Objective Vitals Recorded in This Encounter 02/19/2024 0811 BP: 128/76 Pulse: 79 BP position: sitting Temp: 97.1 F (36.2 C) Temp src: Temporal SpO2: 97 % Weight: 165 lb 11.2 oz (75.2 kg) Height: 5' 2 (1.575 m) Pain Score: 0 No LMP recorded. Patient is postmenopausal. Wt Readings from Last 5 Encounters: 02/19/24 165 lb 11.2 oz (75.2 kg) 11/26/23 160 lb 9.6 oz (72.8 kg) 08/16/23 174 lb 6.4 oz (79.1 kg) 07/19/23 183 lb 12.8 oz (83.4 kg) 04/30/23 184 lb (83.5 kg) Physical Exam Vitals reviewed. Constitutional: General: She is not in acute distress. Cardiovascular: Rate and Rhythm: Normal rate and regular rhythm. Pulses: Normal pulses. Heart sounds: Normal heart sounds. Pulmonary: Effort: Pulmonary effort is normal. Breath sounds: Normal breath sounds and air entry. Abdominal: General: Bowel sounds are normal. Palpations: Abdomen is soft. Tenderness: There is no abdominal tenderness. Musculoskeletal: Right lower leg: No edema. Left lower leg: No edema. Skin: General: Skin is warm and dry. Neurological: Mental Status: She is alert and oriented to person, place, and time. Psychiatric: Mood and Affect: Mood normal. Behavior: Behavior is cooperative. Assessment & Plan Essential hypertension Adequately managed on current med(s)/tx. No change in tx plan at this time. Prediabetes A1c back in normal range on recent check. Leg cramps Increase fluids. Stretching enc. Check mg+ and tsh. Orders: MAGNESIUM; Future TSH; Future Gastroesophageal reflux disease, unspecified whether esophagitis present Continue nexium. Pt to notify me if symptoms are not improving/worsen. Orders: esomeprazole (NEXIUM) 20 MG capsule; Take 1 Capsule by mouth daily. Hyperkalemia Noted on labs in Nov. Needs repeat potassium- order already placed. Enc to complete. Orders & Meds Signed During This Encounter Magnesium TSH esomeprazole (NEXIUM) 20 MG capsule RTC: Follow up in about 6 months (around 08/18/2024) for in-person visit. CED Malik This note was electronically transcribed using [employer] dictation software. Every effort has been made to provide a clear and accurate record, however, grammatical, spelling, and/or other word errors can occur. documented in this encounter [facility] 12-20-2023 Instructions Eunice Gale APRN-CNP - 12/20/2023 8:10 AM EDT Goals Go to the gym Tuesdays and Increase water back up to 3 bottles Preparing For Holidays You need to plan ahead for any and all holidays/high trigger situations. Determine what is going to trigger you and ways to help avoid/ overcome the temptations Help reduce stress and improve/increase stress management techniques oMeditation/Prayer oExercise oReading/Music oGetting Adequate Sleep oStay socially connected with friends/family Be realistic ( Aiming for maintaining ) Do not beat yourself up about not loosing oIf you overeat at one meal go light on the next. It takes 500 calories per day (or 3,500 calories per week) above your normal/maintenance consumption to gain one pound. It is impossible to gain weight from one piece of pie! Try and Create new Holiday Traditions that take the focus off food. oTurn candy and cookie making time into non-edible projects like making wreaths, dough art decorations or a gingerbread house. oPlan group activities with family/friends that aren t all about food.(Serving a holiday meal to the community, playing games or going on a walking tour of decorated homes) Tips to Avoid overeating 1.Don't skip meals. (Eat a light snack like raw vegetables or a piece of fruit to curb your appetite right before a constitution party ) 2. Avoid going to the meal location early (be fashionably late ) to avoid pre-meal snacking. 3. Survey constitution party buffets before filling your plate. Choose your favorite foods and skip your least favorite. Fill portion of plate with non starchy vegetables and lean protein oBring something healthy that you can eat just in case there is nothing there for you to eat. 5. Stay away from the kitchen when possible to avoid snacking (and all of the enticing smells). 6 Eat sloooooowwwwwwwwwww, chew more. ( put the fork down between bites and converse with people) 7. Focus on the social aspect of the holiday - engage in conversation. 8. Stay Busy oTake on the roles of tray server, salt machine operator, and cameraman - everyone will be grateful for your help and you will be keeping your hands busy (and away from the food). 9. Limit your time at the table. Be last to get served and first to get up (and wash dish immediately). 10. Take a walk during dessert. Distract yourself by playing with children or pets. 11.. Be careful with beverages. Alcohol can lessen inhibitions and induce overeating; non-alcoholic beverages can be full of calories and sugar. oAlcohol is rich in calories Alcohol contains nearly as many calories as fat. So it should be no surprise that drinking alcohol may contribute to holiday weight gain, especially if you drink more than usual while celebrating Increases (empty) calorie consumption Reduces fat burning oAlcohol can lead to overeating drinking alcohol can make you lose track of how much you are eating and drinking. Reduces your ability to act reliably This can lead to overeating, that is consuming more calories than you need. Reduces your ability to act reliably 12. Be aware of who your enablers are and avoid them. Sit between two people that will support your healthy food choices (and not pile up your plate with seconds and thirds). Make sure that you have at least one advocate at the meal who will hold you accountable. 13.In the event you need an exit strategy, use the 3 Gs : o Get out (excuse yourself to the restroom and leave the room/building) o Get honest (tell yourself, If I stay at the table, I will end up eating more. ) o Get responsible (decide the best possible action for your healthy lifestyle change and act upon it - even if it means leaving the gathering a little early.) Hosting the Meal o Don t cook foods you like. Avoid cooking items you know you can t say no to. o Minimize leftovers - don t overcook. If you do end up with leftovers, pack them up immediately and give them to guests before they walk out the door. oPractice Healthy Holiday Cooking. Preparing favorite dishes lower in fat and calories will help promote healthy holiday eating. Incorporate some of these simple-cooking tips in traditional holiday recipes to make them healthier. o Gravy -- Refrigerate the gravy to harden fat. Skim the fat off. This will save a whopping 56 gm of fat per cup. o Dressing -- Use a little less bread and add more onions, garlic, celery, and vegetables. Add fruits such as cranberries or apples. Moisten or flavor with low fat low sodium chicken or vegetable broth and applesauce. o Oriska - Enjoy delicious, roasted turkey breast without the skin and save 11 grams of saturated fat per 3 oz serving. o Green Craig Casserole -- Cook fresh green beans with chucks of potatoes instead of cream soup. Top with almonds instead of fried onion rings. o Mashed Potato -- Use skim milk, chicken broth, garlic or garlic powder, and Parmesan cheese instead of whole milk and butter. o Desserts -- Make a crustless pumpkin pie. Substitute two egg whites for each whole egg in baked recipes. Replace heavy cream with evaporated skim milk in cheesecakes and cream pies. Top cakes with fresh fruit, fruit sauce, or a sprinkle of powdered sugar instead of fattening frosting documented in this encounter [facility] 12-20-2023 History of Present illness Narrative Images from the original note were not included. Sabina Judd is a 68 year old White female here for [facility] up in [facility]. Patient has been following with weight management since initial visit on 12/19/21. HPI:Patient is here for medical management. 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 90 Tablet 3 Semaglutide, 1 MG/DOSE, (OZEMPIC) 4 MG/3ML pen Inject 1 mg under the skin once weekly. 9 mL 3 liraglutide (VICTOZA) 18 MG/3ML pen Inject 1.8 mg under the skin daily. 27 mL 3 insulin pen needle 31g x 8 mm (B-D U/F PEN NEEDLE 31GX5/16) Use 1 needle per day under the skin to be used with victoza pen 100 Each 3 Vitamin D3 (Vitamin D High Potency) 25 MCG (1000 UT) CAPS capsule Take 1 Capsule by mouth daily. To start after you finish taking the once a week dosage 90 Capsule 3 vitamin B-12 (CYANOCOBALAMIN) 1000 MCG tablet Take 1 Tablet by mouth daily. (Patient not taking: Reported on 08/16/2023) 90 Tablet 3 esomeprazole (NEXIUM) 20 MG capsule Take 1 Capsule by mouth daily. fluticasone (FLONASE) 50 mcg/act nasal inhaler Use 1 Corinne in each nostril 2 times daily. Corinne in both nostrils. 16 g 1 conjugated estrogens (PREMARIN) 0.625 MG/GM vaginal cream Insert 1g into the vagina daily for 14 days. To start this medication use a bedtime daily for 14 days and then use twice weekly. Insert with applicator. 30 g 2 No current facility-administered medications for this visit. Review of Systems Constitutional: Negative. Eyes: Negative for blurred vision and double vision. Respiratory: Negative for cough, shortness of breath and wheezing. Cardiovascular: Negative for chest pain, palpitations, orthopnea and leg swelling. Gastrointestinal: Negative for abdominal pain, constipation, diarrhea, heartburn, nausea and vomiting. Musculoskeletal: Negative for back pain and joint pain. Skin: Negative for itching and rash. Neurological: Negative for tingling, weakness and headaches. Endo/Heme/Allergies: Does not bruise/bleed easily. Psychiatric/Behavioral: Negative for depression. The patient has insomnia. The patient is not nervous/anxious. BP 117/77 Pulse 83 Physical Exam Eyes: Pupils: Pupils are equal, round, and reactive to light. Pulmonary: Effort: Pulmonary effort is normal. Skin: General: Skin is warm and dry. Neurological: Mental Status: She is alert and oriented to person, place, and time. Psychiatric: Mood and Affect: Mood and affect normal. Weight History/Log 12/20/23 161# 07/19/23 183# 04/13/22 177# 12/19/21 183# initial Clinical Summary: Sabina Judd is a 66 year old female with severe obesity and the following medical problems caused by or worsened by obesity: dyslipidemia, gastroesophageal reflux disease, low back pain, and lower extremity joint pain, which can be improved with weight loss. Pertinent contributing factors include limited exercise, eating quickly, stress eating, and eating motivated by boredom Since initial visit in weight management patient has trialed the following interventions: 04/13/22-pt notes she was doing well and then with the holidays got off track and is back to snacking on junk in the evenings. She also stopped going to the gym. 07/19/23- pt notes she did not find topiramate helpful and struggled over the weekend with junk food. She has been enjoying working out in her garden but no routine exercise. 12/20/23- pt is doing well on victoza. Has not made it to the gym yet but plans to next week. She is working on reducing portion sizes. Weight Loss Medication Summary: topiramate (no helpful) The patient will continue with this plan of life style modification with the adjustments listed as follows: Goals to work on until next visit: Go to the gym Tuesdays and Increase water back up to 3 bottles Diagnoses: (E66.9) Class 1 obesity Plan: Victoza 1.2 ( can increase to 1.8 if needed) (E78.5) Hyperlipidemia, unspecified hyperlipidemia type (primary encounter diagnosis) Comment: Patient's The 10-year ASCVD risk score (Leon MEI, et al., 2019) is: 8.3% which indicates its a conversation about risk/benefit of statin Plan: will continue to monitor with weight loss (E55.9) Vitamin D deficiency Comment: Reviewed Vitamin D, 25-OH (ng/mL) Date Value 11/26/2023 43.6 07/26/2023 29.4 (L) 04/13/2022 25.2 (L) which indicates the patient's deficiency is not controlled/stable. Plan: Continue with supplementation of vitamin D as prescribed (E53.8) B12 deficiency Comment: Reviewed Vitamin B12 (pg/mL) Date Value 07/26/2023 555 04/13/2022 205 (L) which indicates the patient's deficiency is not improved on supplementation. Plan: continue with supplementation of B12 as prescribed. Will continue to monitor level annually Prediabetes Lab Results Component Value Date HBA1C 5.4 11/26/2023 HBA1C 5.9 (H) 07/26/2023 HBA1C 6.0 (H) 04/13/2022 will improve with low carb diet, exercise and weight loss (K21.9) Gastroesophageal reflux disease, unspecified whether esophagitis present Comment: Patient reports symptoms are controlled. Plan: Continue current medication (s) esomeprazole Other Data Reviewed/Pertinent data: Clinical notes: no Social determinants of health Wheel: no Follow up in 6 months Patient is not appropriate for follow-up with Weight Management RN. Patient education and counseling done on the role of surgery, medication, diet and exercise in weight maintenance and weight loss for medical management of each visit diagnosis. Thank you so much for allowing the weight management clinic team to share in the care of this patient. Please call [phone] with questions or concerns. cc CED Malik documented in this encounter [facility] 11-27-2023 Evaluation + Plan note Associated Problem(s): Vitamin D deficiency Orders: VITAMIN D, 25-HYDROXY [facility] 11-27-2023 Miscellaneous Notes Associated Problem(s): Vitamin D deficiency Orders: VITAMIN D, 25-HYDROXY documented in this encounter [facility] 11-27-2023 History of Present illness Narrative ANNUAL WELLNESS VISIT Subjective Ms. Judd is a 68 year old who is being seen for her Annual Wellness Visit. I have reviewed and updated the following information (Care Team, Medical History, Surgical History, Social History, Family History and current medications including [id number] medications and supplements): Patient Care Team: Jessica Coto APRN-CNP as PCP - General (Family Medicine) Marcus Estrada MD as Physician (Ophthalmology) Past Medical History: Diagnosis Date GERD (gastroesophageal reflux disease) Seasonal allergies Past Surgical History: Procedure Laterality Date APPENDECTOMY ESOPHAGOGASTRODUODENOSCOPY N/A 11/04/2018 Procedure: ESOPHAGOGASTRODUODENOSCOPY; Surgeon: Gianni Conway MD; Location: [facility]; Service: Gastroenterology RECONSTRUCTION OF NOSE. [id number] TUBAL LIGATION Family History Problem Relation Age of Onset Diabetes Mellitus Sister Diabetes Mellitus Maternal Grandmother Hypertension Sister Lung Disease Brother COPD- smoker Heart Disease Brother Myocardial Infarction Sister Diabetes Mellitus (Type 2) Sister Other ( cancer) Sister uterine CA Lung Cancer Father questioned documents examiner ( black lung) Arthritis Mother Cancer Paternal Grandmother Esophageal Cancer Paternal Uncle Breast Cancer Negative Family History of Colon Cancer Negative Family History of Social History Socioeconomic History Marital status: Highest education level: GED or equivalent Tobacco Use Smoking status: Former Current packs/day: 0.00 Average packs/day: 0.8 packs/day for 20.0 years (16.0 ttl pk-yrs) Types: Cigarettes Start date: 03/21/1985 Quit date: 03/21/2005 Years since quittin.6 Smokeless tobacco: Never Substance and Sexual Activity Alcohol use: No Drug use: No Sexual activity: Not Currently Partners: Male Social History Narrative 07/2017: Lives alone Randell [employer] ASSIST[employer] - home care 09/13/21 [employer]IST[employer]- home care Living with her Phan moraes Social Determinants of Health Financial Resource Strain: Low Risk (07/19/2023) Overall Financial Resource Strain (CARDIA) Difficulty of Paying Living Expenses: Not hard at all Food Insecurity: No Food Insecurity (07/19/2023) Hunger Vital Sign Worried About Running Out of Food in the Last Year: Never true Ran Out of Food in the Last Year: Never true Transportation Needs: No Transportation Needs (07/19/2023) PRAPARE - Transportation Lack of Transportation (Medical): No Lack of Transportation (Non-Medical): No Physical Activity: Patient Declined (07/19/2023) Exercise Vital Sign Days of Exercise per Week: Patient declined Minutes of Exercise per Session: Patient declined Stress: No Stress Concern Present (07/19/2023) [employer] - Occupational Stress Questionnaire Feeling of Stress : Not at all Social Connections: Unknown (07/19/2023) Social Connection and Isolation Panel [NHANES] Frequency of Communication with Friends and Family: Patient declined Frequency of Social Gatherings with Friends and Family: Patient declined Attends Yarsanism Services: Patient declined Active Member of Clubs or Organizations: Patient declined Attends Club or Organization Meetings: Patient declined Marital Status: Intimate Partner Violence: Not At Risk (07/19/2023) Humiliation, Afraid, Rape, and Kick questionnaire Fear of Current or Ex-Partner: No Emotionally Abused: No Physically Abused: No Sexually Abused: No Current Outpatient Medications on File Prior to Visit Medication Sig Dispense Refill losartan (COZAAR) 25 MG tablet Take 1 Tablet by mouth daily. 90 Tablet 3 Semaglutide, 1 MG/DOSE, (OZEMPIC) 4 MG/3ML pen Inject 1 mg under the skin once weekly. 9 mL 3 liraglutide (VICTOZA) 18 MG/3ML pen Inject 1.8 mg under the skin daily. 27 mL 3 insulin pen needle 31g x 8 mm (B-D U/F PEN NEEDLE 31GX5/16) Use 1 needle per day under the skin to be used with victoza pen 100 Each 3 Vitamin D3 (Vitamin D High Potency) 25 MCG (1000 UT) CAPS capsule Take 1 Capsule by mouth daily. To start after you finish taking the once a week dosage 90 Capsule 3 vitamin B-12 (CYANOCOBALAMIN) 1000 MCG tablet Take 1 Tablet by mouth daily. (Patient not taking: Reported on 08/16/2023) 90 Tablet 3 esomeprazole (NEXIUM) 20 MG capsule Take 1 Capsule by mouth daily. fluticasone (FLONASE) 50 mcg/act nasal inhaler Use 1 Corinne in each nostril 2 times daily. Corinne in both nostrils. 16 g 1 conjugated estrogens (PREMARIN) 0.625 MG/GM vaginal cream Insert 1g into the vagina daily for 14 days. To start this medication use a bedtime daily for 14 days and then use twice weekly. Insert with applicator. 30 g 2 No current facility-administered medications on file prior to visit. I have reviewed the following additional information for Ms. Judd. Falls Risk Screen Falls Risk Screen Fall History (past 12 months): No Fallen with Injury?: No Problems with Walking or Balance?: No PHQ Depression Screen PHQ-9 Depression Screen (over the last 2 weeks...) Decreased Interest / Pleasure?: Not at all Down / Depressed / Hopeless?: Not at all PHQ-2 Total: 0 PHQ2 Interpretation: Screening is Negative Hearing Screen Hearing Screen Have you noticed any changes with your hearing? : (!) Yes Vision Screen Vision Screen Have you noticed any changes with your vision? : (!) Yes Advance Directives Advance Directives Advance Directives?: Yes - paper copy with patient Type of Advance Directive: Living Will Mini COG Mini-Cog Copyright Cheyanne Lyons (used by permission of the author) Remember FIRST word?: Yes Remember SECOND word?: Yes Remember THIRD word?: Yes Clock Diagram correct?: (!) No Mini COG Total Score: 3 Health Risk Assessment Health Risk Assessment Flowsheet Row Patient response During the past four weeks, how much have you been bothered by emotional problems such as feeling anxious, depressed, irritable, sad, or downhearted and blue? Moderately at 11/26/2023 1553 During the past four weeks, has your physical and emotional health limited your social activities with family, friends, neighbors, or groups? Not at all at 11/26/20231552 During the past four weeks, how much bodily pain have you generally had? Very mild at 11/26/20231552 During the past four weeks, was someone available to help you if you needed and wanted help? Yes, as much as I want at 11/26/20231552 During the past four weeks, what was the hardest physical activity you could do for at least two minutes? Heavy at 11/26/20231552 Can you get to places out of walking distance without help? Y at 11/26/20231552 Can you go shopping for groceries or clothes without someone s help? Y at 11/26/20231552 Can you prepare your own meals? Y at 11/26/20231552 Can you do your housework without help? Y at 11/26/20231552 Because of any health problems, do you need the help of another person with your personal care needs? N at 11/26/20231552 Can you handle your own money without help? Y at 11/26/20231552 During the past four weeks, how would you rate your health in general? Good at 11/26/20231552 How have things been going for you during the past four weeks? Pretty well at 11/26/20231552 Are you having difficulties driving your car? No at 11/26/20231552 Do you fasten your seatbelt when you are in a car? Always at 11/26/20231552 Falling or feeling dizzy when standing up? (past 4 weeks) Never at 11/26/20231552 Sexual problems? (past 4 weeks) Never at 11/26/20231552 Trouble eating well? (past 4 weeks) Never at 11/26/20231552 Tooth or denture problems? (past 4 weeks) Seldom at 11/26/20231552 Problems using the telephone? (past 4 weeks) Never at 11/26/20231552 Tiredness or fatigue? (past 4 weeks) Seldom at 11/26/20231552 Do you exercise for about 20 minutes three or more days a week? No, I usually do not exercise this much at 11/26/20231552 Have you been given any information to help you with hazards in your house that might hurt you? Y at 11/26/2023 1553 Have you been given any information to help you with keeping track of your medications? Y at 11/26/2023 1553 How often do you have trouble taking medicines the way you have been told to take them? I always take them as prescribed at 11/26/2023 1553 How confident are you that you can control and manage most of your health problems? Very confident at 11/26/2023 1553 Objective BP 122/72 Pulse 82 Temp 97.3 F (36.3 C) (Temporal) Resp 18 Ht 5' 2 (1.575 m) Wt 160 lb 9.6 oz (72.8 kg) SpO2 100% BMI 29.37 kg/m Extended vitals BP: 122/72 Temperature: 97.3 F (36.3 C) Temperature Source: Temporal Heart Rate: 82 Respiratory Rate: 18 Pain Score: 0/10 SpO2: 100 % Assessment & Plan Vitamin D deficiency Orders: VITAMIN D, 25-HYDROXY Medicare annual wellness visit, subsequent -Return in 1 year Preventative health care Orders: BASIC METABOLIC PANEL HEMOGLOBIN A1C Encounter for complete eye exam Orders: OPHTHALMOLOGY SERVICE REQUEST Routine medical exam -Medicare Wellness Visit End of life preferences: Patient does not have an advanced care plan but is thinking about it Education provided to the patient. Advanced directive pamphlet given to patient. I have provided counseling and referral for the following areas: Counseling: Medical issues, Weight, Physical activity, Safety, Hearing, Vision, Mood, Alcohol, and Tobacco Referrals: Please see orders Additional concerns: documented in this encounter [facility] 11-26-2023 Instructions Markus Laughlin APRN-CNP - 11/26/2023 4:04 PM EDT There are no preventive care reminders to display for this patient. Please follow up with your Primary Care Provider with in 3-6 months. If there is any signs or symptoms of something new or any changes to a current condition you may need to see your PCP sooner. If there is any shortness of breath or other urgent conditions, please go to your nearest Emergency Room. Personalized Preventive Plan for Sabina Judd - 11/26/2023 - A preventive eye exam performed by an home health billing specialist is recommended every 1-2 years to screen for glaucoma, cataracts, macular degeneration, and other eye disorders - A preventive dental visit is recommended every 6 months - Try to get at least 150 minutes of exercise per week or 10,000 steps per day on a pedometer - Order FREE booklet Get Fit For Life: Exercise & Physical Activity for Healthy Aging from [employer] on Agin6-964-344-1892 or https://order.boyd.nih.gov/publi cation/khl-kpc-tfw-life-exercis j-xwkicqac-dsxaqzdw-for-healthy -aging - You need 2115-1033 mg of calcium and 9847-1949 IU of vitamin D per day - it is possible to meet your calcium requirement with diet alone, but a vitamin D supplement is usually necessary to meet this goal - When exposed to sun, use a sunscreen that protects against both UVA and UVB radiation with an SPF of 30 or greater - reapply every 2 to 3 hours or after sweating, drying off with a towel, or swimming - Always wear a seat belt when traveling in a car, and a helmet when riding a bicycle or motorcycle - Living will recommendations: consider making a Living Will and Durable Power of Store Specialist for Healthcare and please provide this office with a copy of your Living Will and Durable Power of Store Specialist for Healthcare documented in this encounter [facility] 09-07-2023 Note Prior Authorization Referral Status Update - *Plan Exclusion*: Medication and dosing: Ozempic does not qualify for a prior authorization based on the diagnosis of prediabetes/weight loss. Medicare requires a diagnosis of type 2 diabetes for coverage. Victoza pricing was updated due to contract changes with the new release of generic Victoza. Victoza is still the lowest cost GLP-1 agonist option for patients paying the chawla contreras. Pricing may tire changer the next few months until more generic formulations enter the market. Current cost for brand Victoza using [employer] Value Pricing is: - $94.39 / 2 pack (36 mg) - $137.08 / 3 pack (54 mg) Depending on dose/package size availability, patient may need multiple boxes to equal a 1 month supply. The chawla contreras for generic Victoza is higher in the $400-600 range. Please note, pricing of both brand and generic may change in the next few months until more generic manufacturers enter the market. The Prior neonatal specialist has contacted the patient via my chart to inform on formulary drug exclusion. Thanks, Prior authorization Team [facility] 08-16-2023 History of Present illness Narrative Images from the original note were not included. Chief Complaint Patient presents with Complete exam Follow up, BP med follow up HPI: Here today for routine f/u visit Comes to the visit unaccompanied. Last visit with PCP (JESSICA COTO) was 04/30/2023 Started losartan earlier this month Tolerating well Bp controlled today Has been checking bp at home- readings 130s/70s Was recently started on victoza by wt mgmt provider Has some nausea and heartburn when she first started it, but this has resolved Cut out snacks Eating healthier in general Drinking smoothies Increasing protein intake Has cut down portions No planned exercise currently; reports that she is active at work ROS: Review of Systems Constitutional: Negative. Eyes: Negative for blurred vision. Respiratory: Negative for shortness of breath. Cardiovascular: Negative for chest pain, palpitations and leg swelling. Gastrointestinal: Negative for heartburn, nausea, vomiting, abdominal pain, diarrhea and constipation. Neurological: Negative for dizziness and headaches. PE: Results Review Labs [facility] [employer] Vitals Recorded in This Encounter 08/16/2023 0850 BP: 132/75 Pulse: 78 BP position: sitting Temp: 98.2 F (36.8 C) SpO2: 96 % Weight: 174 lb 6.4 oz (79.1 kg) Height: 5' 2 (1.575 m) Pain Score: 1 Pain Loc: HEAD No LMP recorded. Patient is postmenopausal. Wt Readings from Last 5 Encounters: 08/16/23 174 lb 6.4 oz (79.1 kg) 07/19/23 183 lb 12.8 oz (83.4 kg) 04/30/23 184 lb (83.5 kg) 03/29/23 180 lb (81.6 kg) 03/23/23 183 lb (83 kg) Physical Exam Vitals reviewed. Constitutional: Appearance: She is obese. Eyes: Extraocular Movements: Extraocular movements intact. Conjunctiva/sclera: Conjunctivae normal. Pupils: Pupils are equal, round, and reactive to light. Cardiovascular: Rate and Rhythm: Normal rate and regular rhythm. Pulses: Normal pulses. Heart sounds: Normal heart sounds. Pulmonary: Effort: Pulmonary effort is normal. Breath sounds: Normal breath sounds and air entry. Abdominal: General: Bowel sounds are normal. Palpations: Abdomen is soft. Tenderness: There is no abdominal tenderness. Musculoskeletal: Right lower leg: No edema. Left lower leg: No edema. Skin: General: Skin is warm and dry. Neurological: Mental Status: She is alert and oriented to person, place, and time. Psychiatric: Behavior: Behavior is cooperative. ASSESSMENT/PLAN: Essential hypertension Adequately managed on current med(s)/tx. No change in tx plan at this time. - BASIC METABOLIC PANEL; Future Prediabetes A1c is stable on recent labs. Continue weight loss efforts. Increase exercise. Hyperlipidemia, unspecified hyperlipidemia type Stable on recent labs. BMI 31.0-31.9,adult Working w/ wt mgmt. Continue victoza. RTC: Follow up in about 6 months (around 02/15/2024), or if symptoms worsen or fail to improve, for in-person visit. CED Malik This note was electronically transcribed using [employer] dictation software. Every effort has been made to provide a clear and accurate record, however, grammatical, spelling, and/or other word errors can occur. documented in this encounter [facility] 08-16-2023 Instructions Jessica Coto APRN-CNP - 08/16/2023 8:56 AM EDT To do: Complete blood work documented in this encounter [facility] 07-26-2023 Telephone encounter Note Identification was verified by patient verbalizing her name and date of . Message given as written below. Follow up appointment scheduled. Patient agrees with date and time. [facility] 07-26-2023 Miscellaneous Notes Identification was verified by patient verbalizing her name and date of . Message given as written below. Follow up appointment scheduled. Patient agrees with date and time. Please notify pt that Eunice muro weight mgmt reached out to me regarding her bp readings. Would like to start her on a med called losartan. Dosing will be 25mg (lowest dose). Please assist with scheduling to see me F2F in 3-4 weeks so we can see how her bp is doing. Please ask her to bring home readings with her to visit. Thx Pt called in regards to their blood pressure maintaining a high value since their appt on last week. It has not come down, and has been close to 153/85 on average. Was told to call back if it had not changed. Pt would like to discuss. Pt's number: [phone] Thank you! documented in this encounter [facility] 07-25-2023 Telephone encounter Note Please notify pt that Eunice from weight mgmt reached out to me regarding her bp readings. Would like to start her on a med called losartan. Dosing will be 25mg (lowest dose). Please assist with scheduling to see me F2F in 3-4 weeks so we can see how her bp is doing. Please ask her to bring home readings with her to visit. Thx [facility] 07-25-2023 Telephone encounter Note Pt called in regards to their blood pressure maintaining a high value since their appt on last week. It has not come down, and has been close to 153/85 on average. Was told to call back if it had not changed. Pt would like to discuss. Pt's number: [phone] Thank you! [facility] 07-19-2023 Instructions Eunice Gale APRN-CNP - 07/19/2023 8:12 AM EDT Victoza Take 0.6mg once a day for 2 weeks Then increase to 1.2 mg and stay on this dose as long as you are losing weight ( 1-2 pounds a week) Then can increase to 1.8 Nausea should wear off on its own as your body adjusts but please notify if not. Constipation- you need to poop at least once every 3 days. If you are not you can try miralax daily and add colace daily ( and can increase to twice a day as needed). If still not pooping regularly every 1-3 days please notify me via [employer] Goals Check BP daily and notify if staying >140/90 Increase water to 64oz a day ( 8x8oz glasses) Go to the gym on Sunday mornings for 30 mins Throw out the junk food in the house- and then keep the junk out from then on 1/2 plate of veggies at lunch and dinner Keep carbs to 1/2 cup max per meal documented in this encounter [facility] 07-19-2023 History of Present illness Narrative Images from the original note were not included. Sabina Judd is a 68 year old White female here for follow up in the [facility]. Patient has been following with weight management since initial visit on 12/19/21. HPI:Patient is here for medical management. 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) Sleep is not restful but better than it was Dietary Recall: - Fasting meal: boiled egg and slice of spam and slice of Keto bread and fruit - Lunch: yogurt, triscuits (6) - Dinner: rice with italian corn and pork - Snacks: chips, ice cream, sandwich - Beverages: coffee ( 1 cup- SF), diet soda, water (2 glass), peach tea ( SF) - Nocturnal ingestions: no - Eating out (# of days per week): rare - Patient Logged: No Activity: nothing outside of work Has membership at the gym but has not gone Current Outpatient Medications Medication Sig Dispense Refill Vitamin D3 (Vitamin D High Potency) 25 MCG (1000 UT) CAPS capsule Take 1 Capsule by mouth daily. To start after you finish taking the once a week dosage 90 Capsule 3 vitamin B-12 (CYANOCOBALAMIN) 1000 MCG tablet Take 1 Tablet by mouth daily. 90 Tablet 3 esomeprazole (NEXIUM) 20 MG capsule Take 1 Capsule by mouth daily. fluticasone (FLONASE) 50 mcg/act nasal inhaler Use 1 Corinne in each nostril 2 times daily. Corinne in both nostrils. 16 g 1 vitamin D2 (ERGOCALCIFEROL) 1.25 MG (45052 UT) capsule Take 1 Capsule by mouth once weekly. 12 Capsule 0 acetaminophen (TYLENOL) 325 mg tablet Take 2 Tablets by mouth every 6 hours as needed for Pain or Fever. 30 Tablet 0 conjugated estrogens (PREMARIN) 0.625 MG/GM vaginal cream Insert 1g into the vagina daily for 14 days. To start this medication use a bedtime daily for 14 days and then use twice weekly. Insert with applicator. 30 g 2 No current facility-administered medications for this visit. Review of Systems Constitutional: Negative. Eyes: Negative for blurred vision and double vision. Respiratory: Negative for cough, shortness of breath and wheezing. Cardiovascular: Negative for chest pain, palpitations, orthopnea and leg swelling. Gastrointestinal: Negative for abdominal pain, constipation, diarrhea, heartburn, nausea and vomiting. Musculoskeletal: Negative for back pain and joint pain. Skin: Negative for itching and rash. Neurological: Negative for tingling, weakness and headaches. Endo/Heme/Allergies: Does not bruise/bleed easily. Psychiatric/Behavioral: Negative for depression. The patient has insomnia. The patient is not nervous/anxious. BP 149/70 (BP Location: left arm, BP position: sitting, Cuff Size: adult) Pulse 68 Resp 18 Wt 183 lb 12.8 oz (83.4 kg) BMI 33.62 kg/m Physical Exam Eyes: Pupils: Pupils are equal, round, and reactive to light. Pulmonary: Effort: Pulmonary effort is normal. Skin: General: Skin is warm and dry. Neurological: Mental Status: She is alert and oriented to person, place, and time. Psychiatric: Mood and Affect: Mood and affect normal. Weight History/Log 07/19/23 183# 04/13/22 177# 12/19/21 183# initial Clinical Summary: Sabina Judd is a 66 year old female with severe obesity and the following medical problems caused by or worsened by obesity: dyslipidemia, gastroesophageal reflux disease, low back pain, and lower extremity joint pain, which can be improved with weight loss. Pertinent contributing factors include limited exercise, eating quickly, stress eating, and eating motivated by boredom Since initial visit in weight management patient has trialed the following interventions: 04/13/22-pt notes she was doing well and then with the holidays got off track and is back to snacking on junk in the evenings. She also stopped going to the gym. 07/19/23- pt notes she did not find topiramate helpful and struggled over the weekend with junk food. She has been enjoying working out in her garden but no routine exercise. Weight Loss Medication Summary: topiramate (no helpful) The patient will continue with this plan of life style modification with the adjustments listed as follows: Goals to work on until next visit: Check BP daily and notify if staying >140/90 Increase water to 64oz a day ( 8x8oz glasses) Go to the gym on Sunday mornings for 30 mins Throw out the junk food in the house- and then keep the junk out from then on 1/2 plate of veggies at lunch and dinner Keep carbs to 1/2 cup max per meal Diagnoses: (E66.9) Class 1 obesity Plan: Victoza Take 0.6mg once a day for 2 weeks Then increase to 1.2 mg and stay on this dose as long as you are losing weight ( 1-2 pounds a week) Then can increase to 1.8 Nausea should wear off on its own as your body adjusts but please notify if not. Constipation- you need to poop at least once every 3 days. If you are not you can try miralax daily and add colace daily ( and can increase to twice a day as needed). If still not pooping regularly every 1-3 days please notify me via [employer] (E78.5) Hyperlipidemia, unspecified hyperlipidemia type (primary encounter diagnosis) Comment: Patient's The 10-year ASCVD risk score (Leon MEI, et al., 2019) is: 10% which indicates its a conversation about risk/benefit of statin Plan: will continue to monitor with weight loss (E55.9) Vitamin D deficiency Comment: Reviewed Vitamin D, 25-OH (ng/mL) Date Value 04/13/2022 25.2 (L) 12/19/2021 19.9 (L) which indicates the patient's deficiency is not controlled/stable. Plan: Continue with supplementation of vitamin D as prescribed (E53.8) B12 deficiency Comment: Reviewed Vitamin B12 (pg/mL) Date Value 04/13/2022 205 (L) 12/19/2021 118 (L) which indicates the patient's deficiency is not improved on supplementation. Plan: continue with supplementation of B12 as prescribed. Will continue to monitor level annually Prediabetes Lab Results Component Value Date HBA1C 6.0 (H) 04/13/2022 will improve with low carb diet, exercise and weight loss (K21.9) Gastroesophageal reflux disease, unspecified whether esophagitis present Comment: Patient reports symptoms are controlled. Plan: Continue current medication (s) esomeprazole Other Data Reviewed/Pertinent data: Clinical notes: no Social determinants of health Wheel: no Follow up in 3 month Patient is not appropriate for follow-up with Weight Management RN. Patient education and counseling done on the role of surgery, medication, diet and exercise in weight maintenance and weight loss for medical management of each visit diagnosis. Thank you so much for allowing the weight management clinic team to share in the care of this patient. Please call [phone] with questions or concerns. cc CED Malik documented in this encounter [facility] 07-19-2023 History of Present illness Narrative Images from the original note were not included. Sabina Judd is a 68 year old White female here for follow up in the Weight Management Clinic. Patient has been following with weight management since initial visit on 12/19/21. HPI:Patient is here for medical management. 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 Hamburger macaroni, chicken with macaroni - Snacks: cupcake, ice cream - Beverages: coffee ( 1 cup- SF), diet soda, water (2 glass), peach tea ( SF) - Nocturnal ingestions: no - Eating out (# of days per week): rare - Patient Logged: No Activity: nothing outside of work Has membership at the gym but has not gone Current Outpatient Medications Medication Sig Dispense Refill Vitamin D3 (Vitamin D High Potency) 25 MCG (1000 UT) CAPS capsule Take 1 Capsule by mouth daily. To start after you finish taking the once a week dosage 90 Capsule 3 vitamin B-12 (CYANOCOBALAMIN) 1000 MCG tablet Take 1 Tablet by mouth daily. 90 Tablet 3 esomeprazole (NEXIUM) 20 MG capsule Take 1 Capsule by mouth daily. fluticasone (FLONASE) 50 mcg/act nasal inhaler Use 1 Corinne in each nostril 2 times daily. Corinne in both nostrils. 16 g 1 vitamin D2 (ERGOCALCIFEROL) 1.25 MG (99149 UT) capsule Take 1 Capsule by mouth once weekly. 12 Capsule 0 acetaminophen (TYLENOL) 325 mg tablet Take 2 Tablets by mouth every 6 hours as needed for Pain or Fever. 30 Tablet 0 conjugated estrogens (PREMARIN) 0.625 MG/GM vaginal cream Insert 1g into the vagina daily for 14 days. To start this medication use a bedtime daily for 14 days and then use twice weekly. Insert with applicator. 30 g 2 No current facility-administered medications for this visit. Review of Systems Constitutional: Negative. Eyes: Negative for blurred vision and double vision. Respiratory: Negative for cough, shortness of breath and wheezing. Cardiovascular: Negative for chest pain, palpitations, orthopnea and leg swelling. Gastrointestinal: Negative for abdominal pain, constipation, diarrhea, heartburn, nausea and vomiting. Musculoskeletal: Negative for back pain and joint pain. Skin: Negative for itching and rash. Neurological: Negative for tingling, weakness and headaches. Endo/Heme/Allergies: Does not bruise/bleed easily. Psychiatric/Behavioral: Negative for depression. The patient has insomnia. The patient is not nervous/anxious. BP 149/70 (BP Location: left arm, BP position: sitting, Cuff Size: adult) Pulse 68 Resp 18 Wt 183 lb 12.8 oz (83.4 kg) BMI 33.62 kg/m Physical Exam Eyes: Pupils: Pupils are equal, round, and reactive to light. Pulmonary: Effort: Pulmonary effort is normal. Skin: General: Skin is warm and dry. Neurological: Mental Status: She is alert and oriented to person, place, and time. Psychiatric: Mood and Affect: Mood and affect normal. Weight History/Log 07/19/23 183# 04/13/22 177# 12/19/21 183# initial Clinical Summary: Sabina Judd is a 66 year old female with severe obesity and the following medical problems caused by or worsened by obesity: dyslipidemia, gastroesophageal reflux disease, low back pain, and lower extremity joint pain, which can be improved with weight loss. Pertinent contributing factors include limited exercise, eating quickly, stress eating, and eating motivated by boredom Since initial visit in weight management patient has trialed the following interventions: 04/13/22-pt notes she was doing well and then with the holidays got off track and is back to snacking on junk in the evenings. She also stopped going to the gym. 07/19/23- pt notes she did not find topiramate helpful and struggled over the weekend with junk food. She has been enjoying working out in her garden but no routine exercise. Weight Loss Medication Summary: topiramate (no helpful) The patient will continue with this plan of life style modification with the adjustments listed as follows: Goals to work on until next visit: Check BP daily and notify if staying >140/90 Increase water to 64oz a day ( 8x8oz glasses) Go to the gym on Sunday mornings for 30 mins Throw out the junk food in the house- and then keep the junk out from then on 1/2 plate of veggies at lunch and dinner Keep carbs to 1/2 cup max per meal Diagnoses: (E66.9) Class 1 obesity Plan: Victoza Take 0.6mg once a day for 2 weeks Then increase to 1.2 mg and stay on this dose as long as you are losing weight ( 1-2 pounds a week) Then can increase to 1.8 Nausea should wear off on its own as your body adjusts but please notify if not. Constipation- you need to poop at least once every 3 days. If you are not you can try miralax daily and add colace daily ( and can increase to twice a day as needed). If still not pooping regularly every 1-3 days please notify me via [employer] (E78.5) Hyperlipidemia, unspecified hyperlipidemia type (primary encounter diagnosis) Comment: Patient's The 10-year ASCVD risk score (Leon DK, et al., 2019) is: 10% which indicates its a conversation about risk/benefit of statin Plan: will continue to monitor with weight loss (E55.9) Vitamin D deficiency Comment: Reviewed Vitamin D, 25-OH (ng/mL) Date Value 04/13/2022 25.2 (L) 12/19/2021 19.9 (L) which indicates the patient's deficiency is not controlled/stable. Plan: Continue with supplementation of vitamin D as prescribed (E53.8) B12 deficiency Comment: Reviewed Vitamin B12 (pg/mL) Date Value 04/13/2022 205 (L) 12/19/2021 118 (L) which indicates the patient's deficiency is not improved on supplementation. Plan: continue with supplementation of B12 as prescribed. Will continue to monitor level annually Prediabetes Lab Results Component Value Date HBA1C 6.0 (H) 04/13/2022 will improve with low carb diet, exercise and weight loss (K21.9) Gastroesophageal reflux disease, unspecified whether esophagitis present Comment: Patient reports symptoms are controlled. Plan: Continue current medication (s) esomeprazole Other Data Reviewed/Pertinent data: Clinical notes: no Social determinants of health Wheel: no Follow up in 3 month Patient is not appropriate for follow-up with Weight Management RN. Patient education and counseling done on the role of surgery, medication, diet and exercise in weight maintenance and weight loss for medical management of each visit diagnosis. Thank you so much for allowing the weight management clinic team to share in the care of this patient. Please call [phone] with questions or concerns. cc CED Malik documented in this encounter [facility] 04-30-2023 Instructions Jessica Coto APRN-CNP - 04/30/2023 4:44 PM EDT Start flonase nasal spray 1 spray in each nostril daily Can try [place] nasal gel to help with irritation at nasal passage openings documented in this encounter [employer] Work Phone: 04-30-2023 History of Present illness Narrative Images from the original note were not included. Chief Complaint Patient presents with ER follow-up HPI: Here today for routine f/u visit Comes to the visit unaccompanied. Last visit with PCP (JESSICA COTO) was 03/30/2022 BP controlled today Denies cp, sob, palpitations No headaches, vision changes No dizziness/lightheadedness No leg swelling Was seen in ER in early Mar Dx with influenza A Was seen a few days later in clinic; felt worse CXR was ordered and completed Pt was started on tamiflu Was also started on a zpack and cefpodoxime [place] better after treatment Denies any ongoing cough, wheezing, sob, cp Intermittently had right sinus pain/pressure Feels swollen when she gets sick Got really bad last month when she had the flu; better now Has been taking nexium otc 20mg daily No breakthrough heartburn sx +occ dysphagia; started w/in the last 6mo No abd pain No n/v Tries to avoid eating late in the evening or before bed HISTORY REVIEW: Past Medical History: Diagnosis Date GERD (gastroesophageal reflux disease) Seasonal allergies Social History Tobacco Use Smoking status: Former Current packs/day: 0.00 Average packs/day: 0.8 packs/day for 20.0 years (16.0 ttl pk-yrs) Types: Cigarettes Start date: 03/21/1985 Quit date: 03/21/2005 Years since quittin.1 Smokeless tobacco: Never Substance Use Topics Alcohol use: No Drug use: No ROS: Review of Systems Constitutional: Negative. Respiratory: Negative. Cardiovascular: Negative. Gastrointestinal: Positive for dysphagia. Negative for heartburn, nausea, vomiting, abdominal pain, diarrhea, constipation and decreased appetite. PE: Results Review Labs [facility] [employer] Vitals Recorded in This Encounter 04/30/2023 1609 BP: 138/76 Pulse: 96 BP position: sitting Temp: 98.2 F (36.8 C) Temp src: Temporal SpO2: 96 % Weight: 184 lb (83.5 kg) Pain Score: 0 No LMP recorded. Patient is postmenopausal. Weight change: +4.0 lb (2%) from 03/29/2023 4:11 PM (180.0 lb) to 04/30/2023 4:09 PM (184.0 lb) (1.0 lb/wk). Physical Exam Vitals reviewed. Constitutional: General: She is not in acute distress. HENT: Head: Normocephalic and atraumatic. Right Ear: Tympanic membrane, ear canal and external ear normal. Left Ear: Tympanic membrane, ear canal and external ear normal. Nose: Right Sinus: Maxillary sinus tenderness (mild) present. Eyes: Extraocular Movements: Extraocular movements intact. Conjunctiva/sclera: Conjunctivae normal. Pupils: Pupils are equal, round, and reactive to light. Neck: Vascular: No carotid bruit. Cardiovascular: Rate and Rhythm: Normal rate and regular rhythm. Pulses: Normal pulses. Heart sounds: Normal heart sounds. Pulmonary: Effort: Pulmonary effort is normal. Breath sounds: Normal breath sounds and air entry. Abdominal: General: Bowel sounds are normal. Palpations: Abdomen is soft. Tenderness: There is no abdominal tenderness. Musculoskeletal: Right lower leg: No edema. Left lower leg: No edema. Skin: General: Skin is warm and dry. Neurological: Mental Status: She is alert and oriented to person, place, and time. Psychiatric: Behavior: Behavior is cooperative. ASSESSMENT/PLAN: Essential hypertension Controlled. No meds needed. - BASIC METABOLIC PANEL; Future Hyperlipidemia, unspecified hyperlipidemia type - FULL LIPID PROFILE; Future Dysphagia, unspecified type Continue nexium. Referral to GI for further eval. - GASTROENTEROLOGY SERVICE REQUEST Gastroesophageal reflux disease, unspecified whether esophagitis present - GASTROENTEROLOGY SERVICE REQUEST Prediabetes - HEMOGLOBIN A1C; Future Sinus pressure Start otc flonase 1 spray in each nostril daily. Vitamin D deficiency - VITAMIN D, 25-HYDROXY; Future Vitamin B12 deficiency - VITAMIN B12 (CYANOCOBALAMIN); Future RTC: Follow up in about 1 year (around 04/29/2024), or if symptoms worsen or fail to improve, for in-person visit. CED Malik This note was electronically transcribed using [employer] dictation software. Every effort has been made to provide a clear and accurate record, however, grammatical, spelling, and/or other word errors can occur. documented in this encounter [facility] [employer] [facility] Work Phone: 04-04-2023 History of Present illness Narrative Teaching Physician Note: I saw and evaluated the patient. I personally obtained the michel and critical portions of the history and physical exam. I reviewed the resident's documentation and discussed the patient with the resident. I agree with the resident's medical decision making as documented in the resident's note. Jaspreet Trejo MD Images from the original note were not included. Chief Complaint: Sabina Judd comes to the clinic today for for follow up ER/urgent care visit. Narrative Summary: Sabina Judd is a 67 year old female who presents for follow up after ED visit for URI. Influenza A was positive on 03/23/2023, she was discharged with symptomatic ttx - mucinex. Since then, pt has had persistent cough, now productive with yellowish greenish sputum. She endorses intermittent subjective fevers and chills as of last night. She states that her sore throat and TOPETE are getting better than earlier in the week. 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 Allergic to penicillin- hives Review of Systems Constitutional: Positive for chills and fever. HENT: Positive for congestion and sinus pain. Respiratory: Positive for cough. Cardiovascular: Negative. Gastrointestinal: Negative. Genitourinary: Negative. [facility] laboratory/diagnostics reviewed Diagnostics List: Vitals Recorded in This Encounter 03/29/2023 1611 BP: 150/79 Pulse: 86 BP position: sitting Temp: 97.9 F (36.6 C) Temp src: Temporal SpO2: 95 % Weight: 180 lb (81.6 kg) Height: 5' 2 (1.575 m) Pain Score: 0 Physical Exam HENT: Head: Normocephalic and atraumatic. Mouth/Throat: Mouth: Mucous membranes are moist. Cardiovascular: Rate and Rhythm: Normal rate and regular rhythm. Pulmonary: Comments: Left lower lung- crackles, wheezes, decreased breath sounds R lower lung with some rales and expiratory wheezes. Abdominal: General: Abdomen is flat. Palpations: Abdomen is soft. Skin: General: Skin is warm. Impression/Plan: Influenza A - Diagnosed on 03/23, has had persistent and worsening productive cough, fever/chills. Exam with Left lower lobe crackles and wheezes c/f pneumonia. She is 95% on RA. 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 - Given c/f bacterial superinfection CAP, Will obtain CXR and start empirical coverage. She is allergic to penicillins (hives), okay for cephalosporins + azithromycin. Plan: - XR CHEST PA+LAT 2 VIEWS; Future; Expected date: 03/29/2023 - oseltamivir (TAMIFLU) 75 MG capsule; Take 1 Capsule by mouth 2 times daily. - azithromycin (Z-PACK) 250 mg tablet; Take 2 tabs by mouth once on day 1, then take 1 tab by mouth daily for 4 days. - cefpodoxime (VANTIN) 100 MG tablet; Take 2 Tablets by mouth 2 times daily for 7 days. Discussion:Dr. trejo Orders & Meds Signed During This Encounter X-ray Chest PA+Lat (Routine) oseltamivir (TAMIFLU) 75 MG capsule azithromycin (Z-PACK) 250 mg tablet cefpodoxime (VANTIN) 100 MG tablet Followup: Follow up in about 5 weeks (around 05/03/2023). Elina Koroma MD, MSc Internal Medicine, PGY-3 Pager [phone] documented in this encounter [facility] 03-29-2023 History of Present illness Narrative Images from the original note were not included. Chief Complaint: Sabina Judd comes to the clinic today for for follow up ER/urgent care visit. Narrative Summary: Sabina Judd is a 67 year old female who presents for follow up after ED visit for URI. Influenza A was positive on 03/23/2023, she was discharged with symptomatic ttx - mucinex. Since then, pt has had persistent cough, now productive with yellowish greenish sputum. She endorses intermittent subjective fevers and chills as of last night. She states that her sore throat and TOPETE are getting better than earlier in the week. 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 Allergic to penicillin- hives Review of Systems Constitutional: Positive for chills and fever. HENT: Positive for congestion and sinus pain. Respiratory: Positive for cough. Cardiovascular: Negative. Gastrointestinal: Negative. Genitourinary: Negative. [facility] laboratory/diagnostics reviewed Diagnostics List: Vitals Recorded in This Encounter 03/29/2023 1611 BP: 150/79 Pulse: 86 BP position: sitting Temp: 97.9 F (36.6 C) Temp src: Temporal SpO2: 95 % Weight: 180 lb (81.6 kg) Height: 5' 2 (1.575 m) Pain Score: 0 Physical Exam HENT: Head: Normocephalic and atraumatic. Mouth/Throat: Mouth: Mucous membranes are moist. Cardiovascular: Rate and Rhythm: Normal rate and regular rhythm. Pulmonary: Comments: Left lower lung- crackles, wheezes, decreased breath sounds R lower lung with some rales and expiratory wheezes. Abdominal: General: Abdomen is flat. Palpations: Abdomen is soft. Skin: General: Skin is warm. Impression/Plan: Influenza A - Diagnosed on 03/23, has had persistent and worsening productive cough, fever/chills. Exam with Left lower lobe crackles and wheezes c/f pneumonia. She is 95% on RA. 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 - Given c/f bacterial superinfection CAP, Will obtain CXR and start empirical coverage. She is allergic to penicillins (hives), okay for cephalosporins + azithromycin. Plan: - XR CHEST PA+LAT 2 VIEWS; Future; Expected date: 03/29/2023 - oseltamivir (TAMIFLU) 75 MG capsule; Take 1 Capsule by mouth 2 times daily. - azithromycin (Z-PACK) 250 mg tablet; Take 2 tabs by mouth once on day 1, then take 1 tab by mouth daily for 4 days. - cefpodoxime (VANTIN) 100 MG tablet; Take 2 Tablets by mouth 2 times daily for 7 days. Discussion:Dr. trejo Orders & Meds Signed During This Encounter X-ray Chest PA+Lat (Routine) oseltamivir (TAMIFLU) 75 MG capsule azithromycin (Z-PACK) 250 mg tablet cefpodoxime (VANTIN) 100 MG tablet Followup: Follow up in about 5 weeks (around 05/03/2023). Elina Koroma MD, MSc Internal Medicine, PGY-3 Pager [phone] documented in this encounter [facility] 03-26-2023 Telephone encounter Note Emergency/CDU-Observation Room Follow Up Call Date and Reason for ED visit: 03/23/2023 Flu-like illness Patient/Family contact reached: No LVM [facility] 03-26-2023 Miscellaneous Notes Emergency/CDU-Observation Room Follow Up Call Date and Reason for ED visit: 03/23/2023 Flu-like illness Patient/Family contact reached: No LVM documented in this encounter [facility] 03-23-2023 Hospital Discharge instructions Evelyn Cobian PA-C - 03/23/2023 4:05 PM EST - increase fluids - tylenol for pain - voltarin for body aches and headache pain -discuss elevated blood pressure with PCP -return to the emergency department if any shortness of breath or other concerns The following attachments cannot be sent through Care Everywhere.Flu Discharge Instructions, Adult (Sammarinese)documented in this encounter [facility] 03-05-2023 Telephone encounter Note Left vm For your mammogram, please call [phone] to schedule. Please avoid deodorant, powder, or creams around the are of the chest, underarms, or breasts the day of your appointment. If you are receiving the COVID-19 vaccine, please schedule your screening mammogram either before receiving the FIRST dose or 6 weeks after receiving your FINAL dose. The RSV and the tetanus shot do not need orders and can be obtained through any S pharmacy [facility] 03-05-2023 Miscellaneous Notes Left vm For your mammogram, please call [phone] to schedule. Please avoid deodorant, powder, or creams around the are of the chest, underarms, or breasts the day of your appointment. If you are receiving the COVID-19 vaccine, please schedule your screening mammogram either before receiving the FIRST dose or 6 weeks after receiving your FINAL dose. The RSV and the tetanus shot do not need orders and can be obtained through any S pharmacy Pt calling in requesting an order for RSV & tetanus vaccine as well as a mammogram order. Please contact pt when orders have been placed @ Phone numbers Thank you documented in this encounter [facility] 03-02-2023 Telephone encounter Note [facility] 03-02-2023 Telephone encounter Note Pt calling in requesting an order for RSV & tetanus vaccine as well as a mammogram order. Please contact pt when orders have been placed @ Phone numbers Thank you [facility] 10-06-2022 Telephone encounter Note changed to 3 refills. [facility] 10-06-2022 Miscellaneous Notes changed to 3 refills. documented in this encounter [facility] 04-20-2022 Miscellaneous Notes [facility] - Routine Breast Cancer Screen Pt is due for Annual Mammogram Contacted reached: No Spoke to: Appointment scheduled: Transportation: Additional notes: patient had mammogram on 04-10-2022 Last visit with PCP (JESSICA COTO) was 03/30/2022 Health Maintenance Due Topic Date Due COVID-19 Vaccine (5 - Booster for Moderna series) 11/08/2021 documented in this encounter [facility] 04-20-2022 Telephone encounter Note [facility] - Routine Breast Cancer Screen Pt is due for Annual Mammogram Contacted reached: No Spoke to: Appointment scheduled: Transportation: Additional notes: patient had mammogram on 04-10-2022 Last visit with PCP (JESSICA COTO) was 03/30/2022 Health Maintenance Due Topic Date Due COVID-19 Vaccine (5 - Booster for Moderna series) 11/08/2021 [facility] 04-13-2022 Instructions Eunice Gale APRN-CNP - 04/13/2022 8:39 AM EST Goals Get back to the gym 2x a week ( on the days you start at 10am - Sunday and ) Talk to PCP about sleep Log And no food after dinner - keep junk out of the house documented in this encounter [facility] 04-13-2022 History of Present illness Narrative Images from the original note were not included. Sabina Judd is a 66 year old White female here for follow up in the Weight [facility] Patient has been following with weight management since initial visit on 12/19/21. HPI:Patient is here for medical management. 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) Sleep is not restful Dietary Recall: - Fasting meal: boiled egg and slice of spam and slice of Keto bread and fruit - Lunch: yogurt, triscuits (6) - Dinner: rice with italian corn and pork - Snacks: chips, ice cream, sandwich - Beverages: coffee ( 1 cup- SF), water ( 1 glass), peach tea ( SF) - Nocturnal ingestions: no - Eating out (# of days per week): rare - Patient Logged: No Activity:stopped as she has been doing house work more Current Outpatient Medications Medication Sig Dispense Refill acetaminophen (TYLENOL) 325 mg tablet Take 2 Tablets by mouth every 6 hours as needed for Pain or Fever. 30 Tablet 0 guaifenesin (Mucinex) 600 MG SR tablet Take 1 Tablet by mouth 2 times daily as needed. 20 Tablet 0 fluticasone (FLONASE) 50 mcg/act nasal inhaler Use 1 Corinne in each nostril 2 times daily. Corinne in both nostrils 16 g 1 conjugated estrogens (PREMARIN) 0.625 MG/GM vaginal cream Insert 1g into the vagina daily for 14 days. To start this medication use a bedtime daily for 14 days and then use twice weekly. Insert with applicator. 30 g 2 esomeprazole (NEXIUM) 20 MG capsule TAKE 1 CAPSULE BY MOUTH DAILY (30 MINUTES BEFORE BREAKFAST). 90 Capsule 3 No current facility-administered medications for this visit. Review of Systems Constitutional: Negative. Eyes: Negative for blurred vision and double vision. Respiratory: Negative for cough, shortness of breath and wheezing. Cardiovascular: Negative for chest pain, palpitations, orthopnea and leg swelling. Gastrointestinal: Negative for abdominal pain, constipation, diarrhea, heartburn, nausea and vomiting. Musculoskeletal: Negative for back pain and joint pain. Skin: Negative for itching and rash. Neurological: Negative for tingling, weakness and headaches. Endo/Heme/Allergies: Does not bruise/bleed easily. Psychiatric/Behavioral: Negative for depression. The patient has insomnia. The patient is not nervous/anxious. BP 139/76 Pulse 92 Wt 177 lb 9.6 oz (80.6 kg) BMI 32.48 kg/m Physical Exam Eyes: Pupils: Pupils are equal, round, and reactive to light. Cardiovascular: Rate and Rhythm: Normal rate and regular rhythm. Heart sounds: Normal heart sounds. Pulmonary: Effort: Pulmonary effort is normal. Breath sounds: Normal breath sounds. Skin: General: Skin is warm and dry. Neurological: Mental Status: She is alert and oriented to person, place, and time. Psychiatric: Mood and Affect: Mood and affect normal. Weight History/Log 04/13/22 177# 12/19/21 183# initial Clinical Summary: Sabina Judd is a 66 year old female with severe obesity and the following medical problems caused by or worsened by obesity: dyslipidemia, gastroesophageal reflux disease, low back pain, and lower extremity joint pain, which can be improved with weight loss. Pertinent contributing factors include limited exercise, eating quickly, stress eating, and eating motivated by boredom Since initial visit in weight management patient has trialed the following interventions: 04/13/22-pt notes she was doing well and then with the holidays got off track and is back to snacking on junk in the evenings. She also stopped going to the gym. Weight Loss Medication Summary: none The patient will continue with this plan of life style modification with the adjustments listed as follows: Goals to work on until next visit: Get back to the gym 2x a week ( on the days you start at 10am - Sunday and ) Talk to PCP about sleep Log And no food after dinner - keep junk out of the house Diagnoses: (E78.5) Hyperlipidemia, unspecified hyperlipidemia type (primary encounter diagnosis) Comment: Patient's The 10-year ASCVD risk score (Leon MEI, et al., 2019) is: 7.1% which indicates its a conversation about risk/benefit of statin Plan: will continue to monitor with weight loss (E55.9) Vitamin D deficiency VITAMIN D, 25-HYDROXY (E53.8) B12 deficiency Plan: , VITAMIN B12 (CYANOCOBALAMIN), (E66.9) Class 1 obesity Plan: HEMOGLOBIN A1C, VITAMIN B12 (CYANOCOBALAMIN), VITAMIN D, 25-HYDROXY, HEPATIC FUNCTION PANEL Topiramate 25mg BID- start Qday in evening for 1 week then increase to BID as tolerated Sabina Jdud has decided to try topiramate (Topamax) for weight loss after discussing the risks and benefits of the medication.Sabina Judd does not have history of kidney stones, cognitive impairment, urinary incontinence, fatigue, or alcohol use disorder. Sabina Judd understands the following fully: Topiramate is approved for the treatment of seizure disorders, neuropathic pain and prevention of migraine headaches. It is not FDA approved for weight loss as monotherapy however Topiramate has been shown in several trials (more than 3) to facilitate improved and sustained weight loss in patients who also initiate a low-calorie diet and increased activity compared to patients not taking the medication. Topiramate has the risk of side effects which include, but are not limited to:Heartburn or reflux, Headache, Tingling or neuropathic symptoms, Fatigue (somnolence) and or Cognitive dysfunction (confusion, memory problems, severe reactions may include disorientation, and may affect performance on tests or ability to perform work tasks) Inform someone you live with or someone you see often when you are starting the medication and have them inform you if they feel there is any sign of memory problem or confusion. I personally reviewed all the above with this patient. Sabina Judd understands the above risks of initiating topiramate and agrees to start the medication, personally review the patient information insert and follow the above guidelines for discontinuing the medication if problems develop. (R73.09) Abnormal glucose Plan: HEMOGLOBIN A1C (K21.9) Gastroesophageal reflux disease, unspecified whether esophagitis present Comment: Patient reports symptoms are controlled. Plan: Continue current medication (s) esomeprazole Other Data Reviewed/Pertinent data: Clinical notes: no Social determinants of health Wheel: no Follow up in 2 month Patient is not appropriate for follow-up with Weight Management RN. Patient education and counseling done on the role of surgery, medication, diet and exercise in weight maintenance and weight loss for medical management of each visit diagnosis. Thank you so much for allowing the weight management clinic team to share in the care of this patient. Please call [phone] with questions or concerns. cc CED Malik documented in this encounter [facility] 03-30-2022 History of Present illness Narrative Images from the original note were not included. Chief Complaint Patient presents with follow up ER follow-up ED follow up from [facility] Sabina Judd comes to the clinic today for 1. COVID-19 2. Gastroesophageal reflux disease, unspecified whether esophagitis present HPI: ER f/u Was seen 03/18- tested pos for COVID 19 Was treated symptomatically w/ tylenol, mucinex, tessalon perles She is feeling significantly better Has some residual sneezing, congestion, headaches GERD has been stable Remains on nexium No abd pain Following w/ wt mgmt HISTORY REVIEW: She has a past medical history of GERD (gastroesophageal reflux disease) and Seasonal allergies. Social History Tobacco Use Smoking status: Former Packs/day: 0.80 Years: 20.00 Pack years: 16.00 Types: Cigarettes Quit date: 03/21/2005 Years since quittin.0 Smokeless tobacco: Never Substance Use Topics Alcohol use: No Drug use: No ROS: Review of Systems Constitutional: Negative for fever and chills. HENT: Positive for congestion and drainage. Respiratory: Positive for cough. Negative for shortness of breath. Cardiovascular: Negative for chest pain. Gastrointestinal: Negative. PE: Vitals Recorded in This Encounter 03/30/2022 0951 BP: 139/78 Pulse: 82 Temp: 96.4 F (35.8 C) Temp src: Temporal SpO2: 96 % Weight: 176 lb (79.8 kg) Height: 5' 2 (1.575 m) Pain Score: 0 Weight change: +2.0 lb (1%) from 01/31/2022 4:28 PM (174.0 lb) to 03/30/2022 9:51 AM (176.0 lb) (0.3 lb/wk). Physical Exam Vitals reviewed. Cardiovascular: Rate and Rhythm: Normal rate and regular rhythm. Pulses: Normal pulses. Heart sounds: Normal heart sounds. Pulmonary: Effort: Pulmonary effort is normal. Breath sounds: Normal breath sounds and air entry. Abdominal: General: Bowel sounds are normal. Palpations: Abdomen is soft. Tenderness: There is no abdominal tenderness. Musculoskeletal: Right lower leg: No edema. Left lower leg: No edema. Skin: General: Skin is warm and dry. Neurological: Mental Status: She is alert and oriented to person, place, and time. Psychiatric: Behavior: Behavior is cooperative. DIAGNOSTICS: [facility] laboratory/diagnostics reviewed ASSESSMENT/PLAN: COVID-19 Mild residual sx, but pt is otherwise improved. Gastroesophageal reflux disease, unspecified whether esophagitis present Adequately managed on current med(s)/tx. No change in tx plan at this time. RTC: Follow up in about 6 months (around 09/27/2022), or if symptoms worsen or fail to improve, for in-person visit. Jessica Coto APRN-RINKMAN This note was electronically transcribed using [employer] dictation software. Every effort has been made to provide a clear and accurate record, however, grammatical, spelling, and/or other word errors can occur. documented in this encounter [facility] 03-24-2022 History of Present illness Narrative 03/24/22 0900 Covid Follow-Up Date of Call 03/24/22 Type of Outreach Positive COVID Follow Up Call Successful? No Answer x1 documented in this encounter [facility] 03-21-2022 Telephone encounter Note Reason for Disposition [1] COVID-19 diagnosed by positive lab test AND [2] mild symptoms (e.g., cough, fever, others) AND [3] no complications or SOB Answer Assessment - Initial Assessment Questions Situation: No taste Background: Covid (+) 03/18/2022 Assessment: Sx are improved but still with loss of taste - is able to eat and drink Recommendation: Discussed home care strategies - encouraged grazing and must eat and drink Allergy: Penicillins, Bupropion Patient Active Problem List: AR (allergic rhinitis) [J30.9] Seasonal allergies [J30.2] Gastroesophageal reflux disease [K21.9] Hyperlipidemia [E78.5] 1. COVID-19 DIAGNOSIS: Who made your Coronavirus (COVID-19) diagnosis? Was it confirmed by a positive lab test? If not diagnosed by a HCP, ask Are there lots of cases (community spread) where you live? (See public health department website, if unsure) 03/18/2022 2. COVID-19 EXPOSURE: Was there any known exposure to COVID before the symptoms began? CDC Definition of close contact: within 6 feet (2 meters) for a total of 15 minutes or more over a 24-hour period. Dx 03/18/2022 3. ONSET: When did the COVID-19 symptoms start? See above 4. WORST SYMPTOM: What is your worst symptom? (e.g., cough, fever, shortness of breath, muscle aches) Cannot taste 5. COUGH: Do you have a cough? If Yes, ask: How bad is the cough? Denies 6. FEVER: Do you have a fever? If Yes, ask: What is your temperature, how was it measured, and when did it start? No fever 7. RESPIRATORY STATUS: Describe your breathing? (e.g., shortness of breath, wheezing, unable to speak) No problems 8. [id number]: Are you getting better, staying the same or getting worse compared to yesterday? If getting worse, ask, In what way? No taste 9. HIGH RISK DISEASE: Do you have any chronic medical problems? (e.g., asthma, heart or lung disease, weak immune system, obesity, etc.) Denies 10. : Is there any chance you are ? When was your last menstrual period? Na age 11. OTHER SYMPTOMS: Do you have any other symptoms? (e.g., chills, fatigue, headache, loss of smell or taste, muscle pain, sore throat; new loss of smell or taste especially support the diagnosis of COVID-19) No taste Protocols used: Coronavirus (COVID-19) Diagnosed or [id number] 03-21-2022 Miscellaneous Notes Reason for Disposition [1] COVID-19 diagnosed by positive lab test AND [2] mild symptoms (e.g., cough, fever, others) AND [3] no complications or SOB Answer Assessment - Initial Assessment Questions Situation: No taste Background: Covid (+) 03/18/2022 Assessment: Sx are improved but still with loss of taste - is able to eat and drink Recommendation: Discussed home care strategies - encouraged grazing and must eat and drink Allergy: Penicillins, Bupropion Patient Active Problem List: AR (allergic rhinitis) [J30.9] Seasonal allergies [J30.2] Gastroesophageal reflux disease [K21.9] Hyperlipidemia [E78.5] 1. COVID-19 DIAGNOSIS: Who made your Coronavirus (COVID-19) diagnosis? Was it confirmed by a positive lab test? If not diagnosed by a HCP, ask Are there lots of cases (community spread) where you live? (See public health department website, if unsure) 03/18/2022 2. COVID-19 EXPOSURE: Was there any known exposure to COVID before the symptoms began? CDC Definition of close contact: within 6 feet (2 meters) for a total of 15 minutes or more over a 24-hour period. Dx 03/18/2022 3. ONSET: When did the COVID-19 symptoms start? See above 4. WORST SYMPTOM: What is your worst symptom? (e.g., cough, fever, shortness of breath, muscle aches) Cannot taste 5. COUGH: Do you have a cough? If Yes, ask: How bad is the cough? Denies 6. FEVER: Do you have a fever? If Yes, ask: What is your temperature, how was it measured, and when did it start? No fever 7. RESPIRATORY STATUS: Describe your breathing? (e.g., shortness of breath, wheezing, unable to speak) No problems 8. [id number]-QSBID: Are you getting better, staying the same or getting worse compared to yesterday? If getting worse, ask, In what way? No taste 9. HIGH RISK DISEASE: Do you have any chronic medical problems? (e.g., asthma, heart or lung disease, weak immune system, obesity, etc.) Denies 10. : Is there any chance you are ? When was your last menstrual period? Na age 11. OTHER SYMPTOMS: Do you have any other symptoms? (e.g., chills, fatigue, headache, loss of smell or taste, muscle pain, sore throat; new loss of smell or taste especially support the diagnosis of COVID-19) No taste Protocols used: Coronavirus (COVID-19) Diagnosed or [id number] documented in this encounter [facility] 03-18-2022 Hospital Discharge instructions Shobha Mckeon APRN-CNP - 03/18/2022 6:00 PM EST Respiratory instructions: Return to the ED if you have worsening shortness of breath, increased fever, coughing up blood, new or worsening chest pain or your symptoms don't resolve in 2 days Procedures done during this visit: None The following attachments cannot be sent through Care Everywhere.COVID-19 Overview (Sammarinese)documented in this encounter [facility] 01-31-2022 Instructions Zach Bernstein MD - 01/31/2022 4:48 PM EST Images from the original note were not included. Get Dry Roasted Nuts because the regular roasted nuts are cooked in oil documented in this encounter [facility] 01-31-2022 History of Present illness Narrative Sabina Judd is a 66 year old female here for follow up in the Weight Management Clinic. Ms. Judd has been working with Weight Management Clinic since First visit in WEIGHT MANAGEMENT was on 12/19/2021 with Zach Bernstein MD). The current medical problems caused by or worsened by obesity that the Weight Management Clinic is co-addressing with the PCP and other specialists include: dyslipidemia, GERD, low back pain, and lower extremity joint pain. Ms. Judd is motivated to institute life style changes at this time because she wants to improve energy level, improve functioning, and feel healthier. She especially wants helps with being about to get up and down from chair and ladders. Ms. Judd has not applied to the [facility] bariatric surgery program. Interval pertinent medical history: Finance with stage IV prostate cancer. ----Review and implementation of individualized plan from last visit---- --Exercise: Limited --Diet: - Morning hunger: Yes - Fasting meal: Boiled egg, toast x 1 slide, SPAM, fruit - Lunch: Grilled ham and cheese, salad, soup, fruit - Dinner: Chicken, hot dog, meatloaf, rice, potato, mixed vegetables - Snacks: Chips, popcorn ea - Nocturnal ingestions: No - Fast food: Limited - Eating out / full service restaurants: [employer] - Beverages: Water, diet pop, diet tea - Patient was successful in recording diet: no - Patient was successful in adhering to the diet: partially - If not successful, what was the obstacle? hunger, just getting started, not recording, and other time committments --Medication: - Patient took the medication as prescribed: yes - Patient tolerated the prescribed medication: yes - If not successful, what was the obstacle? not applicable --Activity: - Patient complied with recording of daily exercise: no - Patient was successful with exercise program: partially - If not successful in exercise, what was the obstacle? just getting started and not logging --Appointments: - Patient returned for f/u as scheduled: yes - Patient kept appointments to PCP and specialists: yes Current Outpatient Medications Medication Sig Dispense Refill fluticasone (FLONASE) 50 mcg/act nasal inhaler Use 1 Corinne in each nostril 2 times daily. Corinne in both nostrils 16 g 1 conjugated estrogens (PREMARIN) 0.625 MG/GM vaginal cream Insert 1g into the vagina daily for 14 days. To start this medication use a bedtime daily for 14 days and then use twice weekly. Insert with applicator. 30 g 2 esomeprazole (NEXIUM) 20 MG capsule TAKE 1 CAPSULE BY MOUTH DAILY (30 MINUTES BEFORE BREAKFAST). 90 Capsule 3 No current facility-administered medications for this visit. Interval social history: Reviewed and no changes since last visit of 12/20/2019. Interval family history: reviewed and no changes since last visit of 12/20/2019. Review of systems: rash, glasses or contacts, dyspnea on exertion with moderate exercise, snoring, headaches PHYSICAL EXAMINATION: BP 134/82 Pulse 96 Temp 96.6 F (35.9 C) (Temporal) Ht 5' 2 (1.575 m) Wt 174 lb (78.9 kg) SpO2 95% BMI 31.83 kg/m General appearance: healthy, alert, pleasant, cooperative, not somnolent HEENT: Sclera anicteric, conjunctivae clear without injection, neck supple, large neck diameter Abd: obese Ext: pink, warm, trace edema present, brisk STATION [employer]TAIN Skin: No acanthosis Neuro: Conversant, logical thought content, CNII-XII grossly intact, EOMI, steady gait Sodium (mmol/L) Date Value 09/13/2021 137 Potassium (mmol/L) Date Value 09/13/2021 5.2 Chloride (mmol/L) Date Value 09/13/2021 104 Carbon Dioxide (mmol/L) Date Value 09/13/2021 26 Blood Urea Nitrogen (mg/dL) Date Value 09/13/2021 15 Creatinine (mg/dL) Date Value 09/13/2021 0.79 Glucose (mg/dL) Date Value 09/13/2021 81 08/09/2020 90 Calcium (mg/dL) Date Value 09/13/2021 9.3 No results found for: ALT No results found for: AST Cholesterol (mg/dL) Date Value 09/13/2021 213 (H) Triglycerides (mg/dL) Date Value 09/13/2021 149 HDL Cholesterol (mg/dL) Date Value 09/13/2021 64 LDL cholesterol (mg/dL) Date Value 09/13/2021 130 (H) No results found for: HBA1C No results found for: UMICROALB No results found for: INSULIN WBC (K/uL) Date Value 12/19/2021 6.5 Hematocrit (%) Date Value 12/19/2021 39.8 Platelet (K/uL) Date Value 12/19/2021 234 Iron (ug/dL) Date Value 12/19/2021 84 Transferrin (mg/dL) Date Value 12/19/2021 255 TIBC (ug/mL) Date Value 12/19/2021 357 Iron Saturation (%) Date Value 12/19/2021 24 Ferritin (ng/mL) Date Value 12/19/2021 72.6 TSH (uIU/mL) Date Value 12/19/2021 1.895 No results found for: INR No results found for: ZINC No results found for: FOL No results found for: MAGED Vitamin B12 (pg/mL) Date Value 12/19/2021 118 (L) Vitamin D, 25-OH (ng/mL) Date Value 12/19/2021 19.9 (L) No results found for: SERENA No results found for: PTHINTACT No results found for: FSH No results found for: LH No results found for: DHEAS Creatinine clearance from [facility]-[facility]: 55 ml/min based on creatinine of 0.79 on 09/13/2021 using IBW 50.1 kg (actual weight 78.9 kg ignored) Estimated GFR: 82 on 09/13/2021 [facility] Stress test: Last StressTest: none found going back to 09/13/1984 Last EKG: Last ECG Date: Not Found Bone mineral density: Bone Mineral Density was last done on 09/07/2020 Weight management clinic progress summary Recent Review Flowsheet Data Date Weight (lbs) BMI (kg/m2) Change from last (lb) 01/31/2022 174.0 31.8 -9.0 Future Appointments (next 10) Provider Department Center 04/10/2022 4:45 PM (Arrive by 4:35 PM) [facility] MOBILE MAMM 1 [facility] Mammography [facility] Radiolog 04/13/2022 8:30 AM Eunice Gale APRN-CNP [facility] Weight Management [facility] Date Time Medication Dietary p* Follows d* Activity * Follows a* Record Ke* 01/31/2022 0001 50% Not doing Not doing Impression/summary: Sabina Judd is a 66 year old female with severe obesity and the following medical problems caused by or worsened by obesity: dyslipidemia, gastroesophageal reflux disease, low back pain, and lower extremity joint pain, which can be improved with weight loss. Pertinent contributing factors include limited exercise, eating quickly, stress eating, and eating motivated by boredom Since her first visit in weight management clinic, Ms. Judd has decreased 9 pounds. ( ). Since last visit in weight managment clinic, Ms. Judd has decreased 9 pounds. Control of pertinent medical issues: - Blood pressure is under good control today with a blood pressure of 134/82 Medications started/maintained/stopped or adjusted at this visit: - Continue a daily multivitamin with iron. Labs and tests ordered at this visit: - No labratory studies are indicated at the present time. Referrals to other providers include: - No referrals. Please see weight documentation flow sheet which includes information from this and previous weight management clinic visits about this patient's weight, adherence and plans for diet, activity and medications. This can be viewed at the start of this note. Sabina Judd has had: - Follows dietary plan: 04/23. Planned changes include increasing vegetables and those which are outlined in the patient instructions of this encounter. - Follows activity plan: 02/23. Planned changes include increasing walking. - Record Keepin/5. Planned recording changes include starting a diet and activity log and bringing the log to all weight management clinic visits. Given the patients' current progress with weight loss/weight maintenance. We do recommend continued follow-up with our clinic. Current plans for surgery assessment: may consider The total time spent on this patient visit was 23 minutes. Over 50% of this visit was spent on patient education; explaination of diagnostic tests; importance of compliance; counseling on the role of diet and exercise for weight maintenance and medical management of dyslipidemia, gastroesophageal reflux disease, low back pain, and lower extremity joint pain with weight loss. Thank you so much for allowing the weight management clinic team to share in the care of this patient. Please call [phone] with questions or concerns. Zach Bernstein M.D. Attending Physician cc PCP: Jessica Coto APRN-RALPH Patient was identified by name and date of . Malathi Vargas 01/31/2022 documented in this encounter [facility] 12-19-2021 Instructions Zach Bernstein MD - 12/19/2021 10:30 PM EDT Images from the original note were not included. documented in this encounter [facility] 12-19-2021 History of Present illness Narrative Images from the original note were not included. Weight Management Clinic Initial Visit Sabina Judd is a 66 year old female referred by Stephanie Edmond PA-C, [address] [place] [address] here for initial visit to the Weight Management Clinic to help improve the following co-morbid conditions: dyslipidemia, GERD, low back pain, and lower extremity joint pain. Ms. Judd is motivated to institute life style changes at this time because she wants to improve energy level, improve functioning, and feel healthier . She especially wants helps with being about to get up and down from chair and ladders. Ms. Judd has not applied to the [facility] bariatric surgery program. Patient Active Problem List: AR (allergic rhinitis) [J30.9] Seasonal allergies [J30.2] Gastroesophageal reflux disease [K21.9] Hyperlipidemia [E78.5] Past Surgical History: Procedure Laterality Date APPENDECTOMY ESOPHAGOGASTRODUODENOSCOPY N/A 11/04/2018 Procedure: ESOPHAGOGASTRODUODENOSCOPY; Surgeon: Gianni Conway MD; Location: [facility]; Service: Gastroenterology RECONSTRUCTION OF NOSE. [id number] TUBAL LIGATION Current Outpatient Medications Medication Sig Dispense Refill conjugated estrogens (PREMARIN) 0.625 MG/GM vaginal cream Insert 1g into the vagina daily for 14 days. To start this medication use a bedtime daily for 14 days and then use twice weekly. Insert with applicator. 30 g 2 esomeprazole (NEXIUM) 20 MG capsule TAKE 1 CAPSULE BY MOUTH DAILY (30 MINUTES BEFORE BREAKFAST). 90 Capsule 3 fluticasone (FLONASE) 50 mcg/act nasal inhaler Use 1 Corinne in each nostril 2 times daily. Corinne in both nostrils 16 g 1 No current facility-administered medications for this visit. Social History Socioeconomic History Marital status: Highest education level: GED or equivalent Tobacco Use Smoking status: Former Packs/day: 0.80 Years: 20.00 Pack years: 16.00 Types: Cigarettes Quit date: 03/21/2005 Years since quittin.7 Smokeless tobacco: Never Substance and Sexual Activity Alcohol use: No Drug use: No Sexual activity: Not Currently Partners: Male Social History Narrative 07/2017: Lives alone [facility] Living with her Phan moraes Social Determinants of Health Financial Resource Strain: Low Risk Difficulty of Paying Living Expenses: Not hard at all Food Insecurity: No Food Insecurity Worried About Running Out of Food in the Last Year: Never true Ran Out of Food in the Last Year: Never true Transportation Needs: No Transportation Needs Lack of Transportation (Medical): No Lack of Transportation (Non-Medical): No Physical Activity: Inactive Days of Exercise per Week: 0 days Minutes of Exercise per Session: 0 min Stress: No Stress Concern Present Feeling of Stress : Not at all Social Connections: Unknown Frequency of Communication with Friends and Family: Patient refused Frequency of Social Gatherings with Friends and Family: Patient refused Attends Yarsanism Services: 1 to 4 times per year Active Member of Clubs or Organizations: Yes Attends Club or Organization Meetings: Never Marital Status: Patient refused Intimate Partner Violence: Not At Risk Fear of Current or Ex-Partner: No Emotionally Abused: No Physically Abused: No Sexually Abused: No Family History Problem Relation Age of Onset Diabetes Mellitus Sister Diabetes Mellitus Maternal Grandmother Hypertension Sister Lung Disease Brother COPD- smoker Heart Disease Brother Myocardial Infarction Sister Diabetes Mellitus (Type 2) Sister Other ( cancer) Sister uterine CA Lung Cancer Father questioned documents examiner ( black lung) Arthritis Mother Cancer Paternal Grandmother Esophageal Cancer Paternal Uncle Breast Cancer Negative Family History of Colon Cancer Negative Family History of Review of systems: Skin: rash Eyes: glasses or contacts Ears/Nose/Throat: sinus trouble Respiratory: dyspnea on exertion with moderate exercise. Sleep symptoms: snoring. Cardiovascular: unremarkable (denies chest pain, chest pressure, chest tightness, palpitations, orthopnea, dependent edema). Gastrointestinal: gastroesophageal reflux disease. Genitourinary: unremarkable and negative history of kidney stones. Neurologic: headaches . Psychiatric: - Depression (Are you depressed, sad, crying or lost pleasure for certain activities? Do you view the future as hopeless?): No - Anxiety (Tendency to be an anxious or nervous person): No - Panic attacks (A sudden leslie or fear and nervousness that makes your heart pound and makes you afraid you're going to or go crazy): No - Bipolar: (Periods of feeling so happy or energetic that your freinds told you were talking too fast or that you were too hyper): No - Agoraphobia (Limits to where you can go because of your anxiety?): No - Memory loss: No - Problems sleeping: No Hematologic/Lymphatic/Immunolog ic: negative (no anemia, iron deficiency, bleeding, or prior deep venous thrombosis) Endocrine: unremarkable Musculoskeletal review of systems: back pain and arthritis. Weight Loss History Maximum weight: 183 lbs Lowest adult weight: 120 lbs Was minimum weight achieved by dieting? no Previous weight loss attempts: Cutting down on eating, joined a gym and started working out (bike and treadmill, shoulder and back) What methods of diet and exercise were most successful? Working out Which did you like the best? All of it Why do you think your efforts failed? 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 No Have you used laxatives at any time for weight loss? No Have you used purging at any time for weight loss? No Have you used starving at any time for weight loss? No Do you experience binge eating? (eating binges in which you eat an unusually large amount of food within a two-hour period and feel that you can't control your eating): No binge eating Appetite History: Do you experience cravings for certain foods? (An urgent need for gratification): None Do you eat in response to emotions? Yes Do you use food for comfort? Yes Do you eat from boredom? Yes Do you eat when not hungry? No Work History Is the patient working? Yes and the patient does not experience problems performing job duties. Has there been a work related injury? No Typical diet by recall: - Morning hunger: Yes - Fasting meal: Boiled egg, one slide toast, SPAM, banana - Lunch: Grilled ham and cheese, chips, peaches - Dinner: Rice and vegetables, hot dog, meatload, mashed patotatoes, mixed vegetables - Snacks: Chips, pop corn, sugar free popsicles - Nocturnal ingestions: None - Restaurants: Hamburger and fries from [employer] - Beverages: diet pop, diet tea, and water Current Activity Home/work activities: Housework Current exercise? No Equipment available? No Gym membership? No Community recreation center available? No Tapes/DVD? No Current home situation: Lives with finance PHYSICAL EXAMINATION: BP 143/78 Pulse 80 Ht 5' 2 (1.575 m) Wt 183 lb (83 kg) SpO2 97% BMI 33.47 kg/m General appearance: healthy, alert, pleasant, cooperative, not somnolent HEENT: Sclera anicteric, conjunctivae clear without injection, neck supple, large neck diameter Abd: obese Ext: pink, warm, 1+ edema present, brisk STATION CAPTAIN Skin: Acanthosis Neuro: Conversant, logical thought content, CNII-XII grossly intact, EOMI, steady gait Sodium (mmol/L) Date Value 09/13/2021 137 Potassium (mmol/L) Date Value 09/13/2021 5.2 Chloride (mmol/L) Date Value 09/13/2021 104 Carbon Dioxide (mmol/L) Date Value 09/13/2021 26 Blood Urea Nitrogen (mg/dL) Date Value 09/13/2021 15 Creatinine (mg/dL) Date Value 09/13/2021 0.79 08/09/2020 0.86 Glucose (mg/dL) Date Value 09/13/2021 81 08/09/2020 90 Calcium (mg/dL) Date Value 09/13/2021 9.3 No results found for: ALT No results found for: AST Cholesterol (mg/dL) Date Value 09/13/2021 213 (H) Triglycerides (mg/dL) Date Value 09/13/2021 149 HDL Cholesterol (mg/dL) Date Value 09/13/2021 64 LDL cholesterol (mg/dL) Date Value 09/13/2021 130 (H) 08/09/2020 122 (H) No results found for: HBA1C No results found for: UMICROALB No results found for: INSULIN WBC (K/uL) Date Value 08/13/2017 6.5 Hematocrit (%) Date Value 08/13/2017 40.3 MCV (fL) Date Value 08/13/2017 91 Platelet (K/uL) Date Value 08/13/2017 254 No results found for: FE No results found for: TRANSFER No results found for: TIBC No results found for: SAT No results found for: FERRITIN No results found for: TSH No results found for: INR No results found for: ZINC No results found for: FOL No results found for: MAGED No results found for: RGRH1CV, VITB1, BQLJ1SZA No results found for: B12 No results found for: VITD25 No results found for: SERENA No results found for: PTHINTACT No results found for: FSH No results found for: LH No results found for: DHEAS No results found for: FREETEST No results found for: TLTEST Sleep study: None Stress test: None EKG: None at [facility] Creatinine clearance from [facility]: 55 ml/min based on creatinine of 0.79 on 09/13/2021 using IBW 50.1 kg (actual weight 83 kg ignored) Estimated GFR: 82 on 09/13/2021 Bone mineral density: Bone Mineral Density was last done on 09/07/2020 Impression: Sabina Judd is an obese patient with the co-morbid conditions of dyslipidemia, gastroesophageal reflux disease, low back pain, and lower extremity joint pain, which can be improved with weight loss. Pertinent contributing factors include limited exercise, eating quickly, stress eating, and eating motivated by boredom Clinical Plan: Goal is a 5-15% weight loss at the rate of 1-2 pounds per week through initial improved diet and activity level. The plan discussed and agreed upon with the patient today in the [facility] Management Clinic includes: record keeping, diet change and increased activity via the [employer] plate and detailed in the patient instructions below. Medications started/maintained/stopped or adjusted at this visit: - Continue a daily multivitamin with iron. Labs and tests ordered at this visit: - Indicated labratory studies include basic metabolic profile, ferritin, iron, TSH, vitamin B12, and vitamin D25. Referrals to other providers include: - No referrals. Patient to follow up with me in 4-6 weeks. This encounter is not billed for by time. Instead, this encounter represented the management of multiple chronic ailments. Thank you so much for allowing the weight management clinic team to share in the care of this patient. Please call [phone] with questions or concerns. Zach Bernstein M.D. Attending Physician cc referring provider: Stephanie Edmond, PA-C [address] [place] [address] Patient was identified by name and date of . Krystyna Santana documented in this encounter [facility] 11-24-2021 History of Present illness Narrative Chief Complaint Patient presents with Limited or partial exam Urine leakage SUBJECTIVE: Sabina Judd is a 66 year old presenting with the complaint of leaking urine. She describes leaking with coughing, sneezing, but also just leaks sometimes when her bladder is full. Also now has burning when she urinates. Also requesting help with weight loss. Wants flu shot. Review of Systems: Constitutional: Negative for recent weight loss, fevers, or chills. Eyes: negative for visual changes Ears, nose, throat: negative. Respiratory: Negative for cough, wheezing and shortness of breath. Cardiovascular: Negative for chest pain, palpitations, shortness of breath, leg swelling. Gastrointestinal: Negative for heartburn, nausea, vomiting, abdominal pain, diarrhea, constipation, blood in stool and melena. Genitourinary: No pelvic pain, urinary symptoms, vaginal itching or discharge Musculoskeletal: Negative for back pain. Skin&integumentary: Negative for rash and itching. Neurological: Negative for headaches. Psychiatric: negative for nervousness, anxiety. Past Medical History: Diagnosis Date GERD (gastroesophageal reflux disease) Seasonal allergies Past Surgical History: Procedure Laterality Date APPENDECTOMY ESOPHAGOGASTRODUODENOSCOPY N/A 11/04/2018 Procedure: ESOPHAGOGASTRODUODENOSCOPY; Surgeon: Gianni Conway MD; Location: [facility]; Service: Gastroenterology RECONSTRUCTION OF NOSE. [id number] TUBAL LIGATION Current Outpatient Medications on File Prior to Visit Medication Sig Dispense Refill esomeprazole (NEXIUM) 20 MG capsule TAKE 1 CAPSULE BY MOUTH DAILY (30 MINUTES BEFORE BREAKFAST). 90 Capsule 3 fluticasone (FLONASE) 50 mcg/act nasal inhaler Use 1 Corinne in each nostril 2 times daily. Corinne in both nostrils 16 g 1 No current facility-administered medications on file prior to visit. The patient's past medical, surgical, family history and meds were reviewed and updated as necessary by me. OBJECTIVE: BP 139/84 (BP Location: right arm, BP position: sitting, Cuff Size: adult) Wt 180 lb (81.6 kg) BMI 32.92 kg/m Abdominal exam: soft without tenderness or guarding, no masses or organomegaly. PELVIC EXAM: Vulva and introitus are normal in appearance without lesions; Vagina: Atrophic, no discharge is noted. Vaginal mucosa normal in appearance. + cystocele grade 2 Cervix: clear Uterus: mobile, normal in size and shape without tenderness. Adnexa without masses or tenderness. ASSESSMENT/PLAN: 1. Obesity (BMI 30.0-34.9) - [facility] WEIGHT MANAGEMENT SERVICE REQUEST 2. KARAN (stress urinary incontinence, female) - conjugated estrogens (PREMARIN) 0.625 MG/GM vaginal cream; Insert 1g into the vagina daily for 14 days. To start this medication use a bedtime daily for 14 days and then use twice weekly. Insert with applicator. Dispense: 30 g; Refill: 2 - URINALYSIS W/REFLEX CULTURE 3. Atrophic vaginitis - conjugated estrogens (PREMARIN) 0.625 MG/GM vaginal cream; Insert 1g into the vagina daily for 14 days. To start this medication use a bedtime daily for 14 days and then use twice weekly. Insert with applicator. Dispense: 30 g; Refill: 2 4. Burning with urination - URINALYSIS W/REFLEX CULTURE 5. Cystocele, midline 6. Needs flu shot - INFLUENZA, INJECTABLE, QUADRIVALENT, PRESERVATIVE FREE, 6+ MONTHS OR OLDER, 0.5 ML 7. Encounter for gynecological examination without abnormal finding FOLLOW-UP: Sabina Judd states that she understands and agrees to the determined care plan and Follow up instructions. She states that she is satisfied with her visit and all of her Questions were answered at this time. Sabina Judd was instructed to call the office if she Should have any future questions or concerns which were not addressed during her appointment. documented in this encounter [facility] 10-10-2021 Telephone encounter Note Last visit with PCP (JESSICA COTO) was 09/13/2021 No future appointment with PCP (JESSICA COTO) [facility] 10-10-2021 Miscellaneous Notes Last visit with PCP (JESSICA COTO) was 09/13/2021 No future appointment with PCP (JESSICA COTO) documented in this encounter [facility] 09-13-2021 History of Present illness Narrative Images from the original note were not included. ANNUAL WELLNESS VISIT Ms. Judd is a 66 year old who is being seen for her Annual Wellness Visit. I have reviewed and updated the following information (Care Team, Medical History, Surgical History, Social history, Family history and current medications including [id number] medications and supplements): Patient Care Team: Jessica Coto APRN-CNP as PCP - General (Family Medicine) Marcus Estrada MD as Physician (Ophthalmology) Past Medical History: Diagnosis Date GERD (gastroesophageal reflux disease) Seasonal allergies Past Surgical History: Procedure Laterality Date APPENDECTOMY ESOPHAGOGASTRODUODENOSCOPY N/A 11/04/2018 Procedure: ESOPHAGOGASTRODUODENOSCOPY; Surgeon: Gianni Conway MD; Location: [facility]; Service: Gastroenterology RECONSTRUCTION OF NOSE. [id number] TUBAL LIGATION Family History Problem Relation Age of Onset Diabetes Mellitus Sister Diabetes Mellitus Maternal Grandmother Hypertension Sister Lung Disease Brother COPD- smoker Heart Disease Brother Myocardial Infarction Sister Diabetes Mellitus (Type 2) Sister Other ( cancer) Sister uterine CA Lung Cancer Father questioned documents examiner ( black lung) Arthritis Mother Cancer Paternal Grandmother Esophageal Cancer Paternal Uncle Breast Cancer Negative Family History of Colon Cancer Negative Family History of Social History Socioeconomic History Marital status: Legally Tobacco Use Smoking status: Former Smoker Packs/day: 0.80 Years: 20.00 Pack years: 16.00 Quit date: 03/21/2005 Years since quittin.4 Smokeless tobacco: Never Used Substance and Sexual Activity Alcohol use: No Drug use: No Sexual activity: Not Currently Partners: Male Social History Narrative 07/2017: Lives alone [facility] 09/13/[facility] Living with her Phan moraes Current Outpatient Medications on File Prior to Visit Medication Sig Dispense Refill fluticasone (FLONASE) 50 mcg/act nasal inhaler Use 1 Corinne in each nostril 2 times daily. Corinne in both nostrils 16 g 1 esomeprazole (NEXIUM) 20 MG capsule TAKE 1 CAPSULE BY MOUTH DAILY (30 MINUTES BEFORE BREAKFAST). 90 Capsule 3 No current facility-administered medications on file prior to visit. I have reviewed the following additional information for Ms. Judd. Falls Risk Screen Falls Risk Screen Fall History (past 12 months): No Fallen with Injury?: No Problems with Walking or Balance?: No PHQ Depression Screen PHQ-9 Depression Screen Decreased Interest / Pleasure?: Not at all Down / Depressed / Hopeless?: Not at all PHQ-2 Total: 0 PHQ2 Interpretation: Screening is Negative Hearing Screen Hearing Screen Have you noticed any changes with your hearing? : (!) Yes *Note: Wears hearing aids Vision Screen Vision Screen Have you noticed any changes with your vision? : No Advance Directives Advance Directives Advance Directives?: No Advance Directive Information: Given to patient *Note: paperwork provided today Mini COG Mini-Cog Copyright Cheyanne Lyons (used by permission of the author) Remember FIRST word?: Yes Remember SECOND word?: Yes Remember THIRD word?: Yes Clock Diagram correct?: Yes Mini COG Total Score: 5 Health Risk Assessment No questionnaire available. Health Risk Assessment Flowsheet Row Patient response During the past four weeks, how much have you been bothered by emotional problems such as feeling anxious, depressed, irritable, sad, or downhearted and blue? Not at all at 09/13/2021 103 During the past four weeks, has your physical and emotional health limited your social activities with family, friends, neighbors, or groups? Not at all at 09/13/2021 1034 During the past four weeks, how much bodily pain have you generally had? Very mild at 09/13/20211033 During the past four weeks, was someone available to help you if you needed and wanted help? Yes, as much as I want at 09/13/2021 103 During the past four weeks, what was the hardest physical activity you could do for at least two minutes? Moderate at 09/13/20211033 Can you get to places out of walking distance without help? Y at 09/13/20214 Can you go shopping for groceries or clothes without someone s help? Y at 09/13/20214 Can you prepare your own meals? Y at 09/13/20214 Can you do your housework without help? Y at 09/13/20211033 Because of any health problems, do you need the help of another person with your personal care needs? N at 09/13/20214 Can you handle your own money without help? Y at 09/13/20214 During the past four weeks, how would you rate your health in general? Good at 09/13/2021 1034 How have things been going for you during the past four weeks? Pretty well at 09/13/2021 1034 Are you having difficulties driving your car? No at 09/13/2021 1034 Do you fasten your seatbelt when you are in a car? Always at 09/13/2021 1034 Falling or feeling dizzy when standing up? (past 4 weeks) Never at 09/13/2021 103 Sexual problems? (past 4 weeks) Never at 09/13/2021 1034 Trouble eating well? (past 4 weeks) Sometimes at 09/13/2021 103 Tooth or denture problems? (past 4 weeks) Sometimes at 09/13/2021 1034 Problems using the telephone? (past 4 weeks) Never at 09/13/2021 103 Tiredness or fatigue? (past 4 weeks) Sometimes at 09/13/20211033 Do you exercise for about 20 minutes three or more days a week? Yes, some of the time at 09/13/2021 103 Have you been given any information to help you with hazards in your house that might hurt you? N at 09/13/2021 103 Have you been given any information to help you with keeping track of your medications? Y at 09/13/2021 1034 How often do you have trouble taking medicines the way you have been told to take them? I always take them as prescribed at 09/13/2021 103 How confident are you that you can control and manage most of your health problems? Very confident at 09/13/2021 1034 Physical examination Vital signs: BP 115/72 Pulse 75 Temp 96.7 F (35.9 C) Resp 16 Ht 5' 2 (1.575 m) Wt 177 lb (80.3 kg) BMI 32.37 kg/m Physical Exam Vitals reviewed. Cardiovascular: Rate and Rhythm: Normal rate and regular rhythm. Pulses: Normal pulses. Heart sounds: Normal heart sounds. Pulmonary: Effort: Pulmonary effort is normal. Breath sounds: Normal breath sounds and air entry. Abdominal: General: Bowel sounds are normal. Palpations: Abdomen is soft. Tenderness: There is no abdominal tenderness. Musculoskeletal: Right lower leg: No edema. Left lower leg: No edema. Skin: General: Skin is warm and dry. Neurological: Mental Status: She is alert and oriented to person, place, and time. Psychiatric: Behavior: Behavior is cooperative. End of life preferences: Patient has an advanced care plan and I am willing to follow their expressed wishes. I have provided counseling and referral for the following areas: Counseling: Medical Issues, Weight, Physical Activity, Safety and Hearing Referrals: Please see orders Assessment/Plan: 1. Routine medical exam HM reviewed/updated. Reminded to schedule mammogram- order already in computer. Increase exercise. Low fat diet. - BASIC METABOLIC PANEL; Future - FULL LIPID PROFILE; Future 2. Gastroesophageal reflux disease, unspecified whether esophagitis present Adequately managed on current med(s)/tx. No change in tx plan at this time. 3. Hyperlipidemia, unspecified hyperlipidemia type - FULL LIPID PROFILE; Future 4. Allergic rhinitis, unspecified seasonality, unspecified trigger Adequately managed on current med(s)/tx. No change in tx plan at this time. - fluticasone (FLONASE) 50 mcg/act nasal inhaler; Use 1 Corinne in each nostril 2 times daily. Corinne in both nostrils Dispense: 16 g; Refill: 1 5. Immunization due - PFIZER COVID-19 (12+ YRS) IMMUNIZATION, 30MCG/0.3ML, BRANDON-SUCROSE RTC: 1 yr for MWV/prn CED Malik documented in this encounter [facility] 09-13-2021 Instructions Jessica Coto APRN-CNP - 09/13/2021 10:40 AM EDT Personalized Preventive for Sabina Judd - 09/13/2021 Other Preventive Recommendations: A preventive eye exam performed by an home health billing specialist is recommended every 1-2 years to screen for glaucoma, cataracts, macular degeneration, and other eye disorders A preventive dental visit is recommended every 6 months Try to get at least 150 minutes of exercise per week or 10,000 steps per day on a pedometer Order FREE Exercise and Physical Activity book from [employer] on Agin4-578-221-7543 or http://order.boyd.nih.gov/health /publication/order/BK004 You need 8424-7264 mg of calcium and 5217-0592 IU of vitamin D per day - it is possible to meet your calcium requirement with diet alone, but a vitamin D supplement is usually necessary to meet this goal When exposed to sun, use a sunscreen that protects against bot UVA and UVB radiation with an SPF of 30 or greater - reapply every 2 to 3 hours or after sweating, drying off with a towel, ot swimming Always wear a seat belt when traveling in a car, and a helmet when riding a bicycle or motorcycle documented in this encounter [facility] 08-09-2021 History of Present illness Narrative Pt presents to nurse clinic today for prevnar 20 vaccine. Patient was identified by name and date of . Allergies reviewed. VIS given. Vaccine was administered in the left deltoid. Scheduled pt for next vaccine: no Pt discharged with no further questions. documented in this encounter [facility] 07-05-2021 [facility]ine [facility] Screen Care Opportunity-Mammogram and Annual MWV due Chart reviewed in [employer] for [place] [employer] Payor: ANNABEL - ENOREE CROSS / Plan: BLUE CROSS/HMO,PPO,POS / Product Type: PPO Last visit with PCP (JESSICA COTO) was 08/09/2020 Last Mammogram date (10 year lookback): 08/09/2020 No future appointment with PCP (JESSICA COTO) Health Maintenance Due Topic Date Due Annual Wellness Visit (G0438) Never done Mammography 08/09/2021 Active Orders/Referrals? Yes-mammogram Contacted Patient: Called patient for Care Navigation purposes to offer to assist with scheduling Mammogram. Unable to reach patient, Left VM. Sent health Maintenance reminder letter. 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 documented in this encounter [facility] Evaluation note Diagnosis Screening mamm[facility] for breast cancer- [facility] Diagnosis Encounter for immunization- Primary Need for other specified prophylactic vaccination against single bacterial disease [facility] Diagnosis Routine medical exam- Primary Routine general medical examination at a [facility] Gastroesophageal reflux disease, unspecified whether esophagitis present Hyperlipidemia, unspecified hyperlipidemia type Allergic rhinitis, unspecified seasonality, unspecified trigger Immunization due Need for prophylactic vaccination and inoculation against unspecified single disease Body mass index (BMI) 32.0-32.9, adult Routine medical exam [facility] Hyperlipidemia, unspecified hyperlipidemia type [facility] Diagnosis Routine medical exam- Primary Routine general medical examination at a [facility] Gastroesophageal reflux disease, unspecified whether esophagitis present Hyperlipidemia, unspecified hyperlipidemia type Allergic rhinitis, unspecified seasonality, unspecified trigger Immunization due Need for prophylactic vaccination and inoculation against unspecified single disease Body mass index (BMI) 32.0-32.9, adult [facility] Diagnosis Routine medical exam- Primary Routine general medical examination at a [facility] care facility Gastroesophageal reflux disease, unspecified whether esophagitis present Hyperlipidemia, unspecified hyperlipidemia type Allergic rhinitis, unspecified seasonality, unspecified trigger Immunization due Need for prophylactic vaccination and inoculation against unspecified single disease Body mass index (BMI) 32.0-32.9, adult [facility] Diagnosis Routine medical exam Routine [facility] Hyperlipidemia, unspecified hyperlipidemia type [facility] Diagnosis Gastroesophageal reflux disease, unspecified whether esophagitis present- Primary Hyperlipidemia, unspecified hyperlipidemia type Anemia, unspecified type Vitamin D deficiency Unspecified vitamin D deficiency Body mass index (BMI) 33.0-33.9, adult [facility]* Diagnosis Allergic rhinitis, unspecified seasonality, unspecified trigger- Primary [facility]* Diagnosis Encounter for gynecological examination without abnormal finding- Primary Routine gynecological examination Obesity (BMI 30.0-34.9) KARAN (stress urinary incontinence, female) Female stress incontinence Atrophic vaginitis Postmenopausal atrophic vaginitis Burning with urination Dysuria Cystocele, midline Needs flu shot Need for prophylactic vaccination and inoculation against influenza Body mass index (BMI) 32.0-32.9, adult [facility] Diagnosis Gastroesophageal reflux disease, unspecified whether esophagitis present- Primary Body mass index (BMI) 31.0-31.9, adult [facility]* Diagnosis COVID-19- Primary [facility]* Diagnosis COVID-19- Primary Gastroesophageal reflux disease, unspecified whether esophagitis present Body mass index (BMI) 32.0-32.9, adult [facility]* Diagnosis Hyperlipidemia, unspecified hyperlipidemia type- Primary Vitamin D deficiency Unspecified vitamin D deficiency B12 deficiency Other B-complex deficiencies Class 1 obesity Abnormal glucose Other abnormal glucose Gastroesophageal reflux disease, unspecified whether esophagitis present Body mass index (BMI) 32.0-32.9, adult [facility] Diagnosis Hyperlipidemia, unspecified hyperlipidemia type Vitamin D deficiency Unspecified vitamin D deficiency B12 deficiency Other B-complex deficiencies Class 1 obesity Abnormal glucose Other abnormal glucose [facility]* Diagnosis Colon cancer screening- Primary Special screening for malignant neoplasms, colon documented [facility]* Diagnosis Allergic rhinitis, unspecified seasonality, unspecified trigger- Primary [facility]* Diagnosis Immunization due- Primary Need for prophylactic vaccination and inoculation against unspecified single disease Encounter for screening mammogram for malignant neoplasm of breast Other screening mammogram [facility]* Diagnosis Viral URI- Primary Acute upper respiratory infections of unspecified site Essential hypertension Unspecified essential hypertension Influenza A Influenza with other respiratory manifestations [facility]* Diagnosis Influenza A- Primary Influenza with other respiratory manifestations [facility]* Diagnosis Influenza A Influenza with other respiratory manifestations [facility]* Diagnosis Influenza A- Primary Influenza with other respiratory manifestations Body mass index (BMI) 32.0-32.9, adult [facility]* Diagnosis Prediabetes- Primary Other abnormal glucose Class 1 obesity Essential hypertension Unspecified essential hypertension Hyperlipidemia, unspecified hyperlipidemia type Body mass index (BMI) 33.0-33.9, adult [facility]* Diagnosis Essential hypertension Unspecified essential hypertension Prediabetes Other abnormal glucose Vitamin D deficiency Unspecified vitamin D deficiency Vitamin B12 deficiency Other B-complex deficiencies Hyperlipidemia, unspecified hyperlipidemia type documented [facility]* Diagnosis Colon cancer screening- Primary Special screening for malignant neoplasms, colon [facility]* Diagnosis Essential hypertension- Primary Unspecified essential hypertension Prediabetes Other abnormal glucose Hyperlipidemia, unspecified hyperlipidemia type BMI 31.0-31.9,adult Body Mass Index 31.0-31.9, adult [facility]* Diagnosis Essential hypertension- Primary Unspecified essential hypertension [facility]* Diagnosis Medicare annual wellness visit, subsequent- Primary Vitamin D deficiency Unspecified vitamin D deficiency Preventative health care Routine general medical examination at a health care facility Encounter for complete eye exam Routine medical exam Routine general medical examination at a health care facility Body mass index (BMI) 29.0-29.9, adult Serum potassium elevated- Primary Hyperpotassemia [facility]* Diagnosis Medicare annual wellness visit, subsequent- Primary Vitamin D deficiency Unspecified vitamin D deficiency Preventative health care Routine general medical examination at a health care facility Encounter for complete eye exam Routine medical exam Routine general medical examination at a health care facility Body mass index (BMI) 29.0-29.9, adult [facility]* Diagnosis Medicare annual wellness visit, subsequent- Primary Vitamin D deficiency Unspecified vitamin D deficiency Preventative health care Routine general medical examination at a health care facility Encounter for complete eye exam Routine medical exam Routine general medical examination at a health care facility Body mass index (BMI) 29.0-29.9, adult Essential hypertension- Primary Unspecified essential hypertension Prediabetes Other abnormal glucose Class 1 obesity Hyperlipidemia, unspecified hyperlipidemia type [facility]* Diagnosis Essential hypertension- Primary Unspecified essential hypertension Hyperlipidemia, unspecified hyperlipidemia type Dysphagia, unspecified type Gastroesophageal reflux disease, unspecified whether esophagitis present Prediabetes Other abnormal glucose Sinus pressure Other diseases of nasal cavity and sinuses Vitamin D deficiency Unspecified vitamin D deficiency Vitamin B12 deficiency Other B-complex deficiencies Body mass index (BMI) 33.0-33.9, adult documented in this encounter [employer] Work Phone: Evaluation note* Diagnosis Medicare annual wellness visit, subsequent- Primary Vitamin D deficiency Unspecified vitamin D deficiency Preventative health care Routine general medical examination at a health care facility Encounter for complete eye exam Routine medical exam Routine general medical examination at a health care facility Body mass index (BMI) 29.0-29.9, adult Essential hypertension- Primary Unspecified essential hypertension Prediabetes Other abnormal glucose Leg cramps Cramp of limb Gastroesophageal reflux disease, unspecified whether esophagitis present Hyperkalemia Hyperpotassemia Body mass index (BMI) 30.0-30.9, adult [facility]* Diagnosis Medicare annual wellness visit, subsequent- Primary Vitamin D deficiency Unspecified vitamin D deficiency Preventative health care Routine general medical examination at a health care facility Encounter for complete eye exam Routine medical exam Routine general medical examination at a health care facility Body mass index (BMI) 29.0-29.9, adult Essential hypertension- Primary Unspecified essential hypertension Prediabetes Other abnormal glucose Leg cramps Cramp of limb Gastroesophageal reflux disease, unspecified whether esophagitis present Hyperkalemia Hyperpotassemia Body mass index (BMI) 30.0-30.9, adult Screening mammogram for breast cancer- Primary documented in this encounter [facility] Summary Purpose Family History No Family History Records FoundNo Family History Records Found Advance Directives No Advanced Directives Records FoundNo Advanced Directives Records Found Reason for Referral Specialty Diagnoses / Procedures Referred By Naresh delarosa Referred To Contact Radiology Diagnoses Screening mammogram for breast cancer Procedures MG MAMMO SCREEN BILAT CATRINA W/Jaspreet Fields MD [address] [place] [address] [facility] [place] [address] Referral ID Status Reason Start Date Expiration Date V isits Requested Visits Authorized [id number] Authorized 07/04/2021 07/04/2022 1 1 Specialty Diagnoses / Procedures Referred By Naresh delarosa Referred To Contact Internal Medicine Diagnoses Obesity (BMI 30.0-34.9) Stephanie Edmond PA-C [id number] [place] [address] Weight Management [address] [place] [address] Referral ID Status Reason Start Date Expiration Date V isits Requested Visits Authorized [id number] Authorized 11/24/2021 11/24/2022 10 10 Scheduling Instructions Please call [phone] to schedule your appointment in Weight Management if an appointment was not yet made for you. Question Answer Has patient attended the [facility] Metabolic Bariatric Surgery Information Session within the last 2 years? No Is patient actively pursuing weight loss surgery? No Specialty Diagnoses / Procedures Referred By Contac t Referred To Contact Radiology Diagnoses Encounter for screening mammogram for malignant neoplasm of breast Procedures MG MAMMO SCREEN BILAT CATRINA W/CAD Jessica Coto SECURITY AND COMPLIANCE ANALYST-RINKMAN [id number] [place] [id number] [facility] [place] [address] Referral ID Status Reason Start Date Expiration Date V isits Requested Visits Authorized [id number] Authorized 03/04/2023 03/01/2024 1 1 Specialty Diagnoses / Procedures Referred By Contac t Referred To Contact Radiology Diagnoses Influenza A Procedures XR CHEST PA+LAT 2 VIEWS [facility] [address] [place] [address] [facility] DIAGNOSTIC RADIOLOGY [address] [place] [address] [place] [address] Referral ID Status Reason Start Date Expiration Date Visits Re quested Visits Authorized [id number] Closed 03/29/2023 03/28/2024 1 1 Specialty Diagnoses / Procedures Referred By Contac t Referred To Contact Diagnoses Prediabetes Class 1 obesity Eunice Gale SECURITY AND COMPLIANCE ANALYST-RINKMAN [address] [place] [address] [place] [address] Referral ID Status Reason Start Date Expiration Date V isits Requested Visits Authorized [id number] Pending Review 3 3 Specialty Diagnoses / Procedures Referred By Contac t Referred To Contact Ophthalmology Diagnoses Encounter for complete eye exam Markus Laughlin SECURITY AND COMPLIANCE ANALYST-RINKMAN [address] [place] [address] [facility] EYE [facility]ACULTY [address] [place] [address] Referral ID Status Reason Start Date Expiration Date V isits Requested Visits Authorized [id number] Authorized 11/26/2023 11/25/2024 3 3 Scheduling Instructions Please call the Eye Clinic at [phone] option 3, to schedule an appointment if one was not made for you today. Question Answer Patient to be evaluated for: Cataract [5] Specialty Diagnoses / Procedures Referred By Contleanne t Referred To Contact Gastroenterology Diagnoses Dysphagia, unspecified type Gastroesophageal reflux disease, unspecified whether esophagitis [place] [address] [facility] GASTROENTEROLOGY [address] [place], [place] [id number] Referral ID Status Reason Start Date Expiration Date V isits Requested Visits Authorized [id number] Authorized 04/30/2023 04/29/2024 3 3 Scheduling Instructions Please call the Gastroenterology Clinic at to schedule an appointment if one was not made for you today. Question Answer Reason for Referral: Swallowing Difficulty [20] Which GI clinic should the patient be scheduled in? General GI Clinic Comments No prior visits in Gastroenterology Additional Source Comments INFORMATION SOURCE (unrecogn ized section and content) DATE CREATED AUTHOR 08/15/2017 [facility] DATE CREATED AUTHOR AUTHOR'S TAVO ATION 05/09/2024 [facility] Care Teams (unrecognized sec tion and content) Rn Cardiac Cath Relationship Specialty Start Date End Date Jessica Coto APRN-RINKMAN [address] [place], [place] [phone] PCP - General Family Medicine 08/13/17 Marcus Estrada MD [address] [place] [address] Physician Ophthalmology 10/22/20 Rn Cardiac Cath Relationship Specialty Start Date End Date Jessica Coto APRN-RINKMAN [address] [place] [address] PCP - General Family Medicine 08/13/17 Marcus Estrada MD [address] [place], [place] [id number] Physician Ophthalmology 10/22/20 Rn Cardiac Cath Relationship Specialty Start Date End Date Jessica Coto APRN-RINKMAN [address] [place] [address] PCP - General Family Medicine 08/13/17 Marcus Estrada MD [address] [place] [address], [place] [address] Physician Ophthalmology 10/22/20 Rn Cardiac Cath Relationship Specialty Start Date End Date Jessica Coto SECURITY AND COMPLIANCE ANALYST-RINKMAN [address] [place] [address] PCP - General Family Medicine 08/13/17 Marcus Estrada MD [address] [place] [address], [place] [address] Physician Ophthalmology 10/22/20 Rn Cardiac Cath Relationship Specialty Start Date End Date Jessica Coto APRN-RINKMAN [address] [place] [address] PCP - General Family Medicine 08/13/17 Marcus Estrada MD [address] [place] [address], [place] [address] Physician Ophthalmology 10/22/20 Rn Cardiac Cath Relationship Specialty Start Date End Date Jessica Coto APRN-RINKMAN [address] [place] [address] PCP - General Family Medicine 08/13/17 Marcus Estrada MD [address] [place] [address], [place] [address] Physician Ophthalmology 10/22/20 Rn Cardiac Cath Relationship Specialty Start Date End Date Jessica Coto APRN-RINKMAN [address] [place] [address] PCP - General Family Medicine 08/13/17 Marcus Estrada MD [address] [place] [address], [place] [address] Physician Ophthalmology 10/22/20 Rn Cardiac Cath Relationship Specialty Start Date End Date Chica Jessica, SECURITY AND COMPLIANCE ANALYST-RINKMAN [address] [place] [address], [place] [address] PCP - General Family Medicine 08/13/17 Marcus Estrada MD [address] [place] [address], [place] [address] Physician Ophthalmology 10/22/20 Rn Cardiac Cath Relationship Specialty Start Date End Date CtooJessica SECURITY AND COMPLIANCE ANALYST-RINKMAN [id number] [place] [address], [place] [address] PCP - General Family Medicine 08/13/17 Marcus Estrada MD [address] [place] [address], [place] [address] Physician Ophthalmology 10/22/20 Rn Cardiac Cath Relationship Specialty Start Date End Date Chica Jessica SECURITY AND COMPLIANCE ANALYST-RINKMAN [address] [place] [address] PCP - General Family Medicine 08/13/17 Marcus Estrada MD [address] [place] [address], [place] [address] Physician Ophthalmology 10/22/20 Rn Cardiac Cath Relationship Specialty Start Date End Date Jessica Coto APRN-RINKMAN [address] [place] [address] PCP - General Family Medicine 08/13/17 Marcus Estrada MD [address] [place] [address], [place] [address] Physician Ophthalmology 10/22/20 Rn Cardiac Cath Relationship Specialty Start Date End Date Jessica Coto APRN-RINKMAN [address] [place] [address] PCP - General Family Medicine 08/13/17 Marcus Estrada MD [address] [place] [address], [place] [address] Physician Ophthalmology 10/22/20 Rn Cardiac Cath Relationship Specialty Start Date End Date CotoJessica SECURITY AND COMPLIANCE ANALYST-RINKMAN [address] [place] [address] PCP - General Family Medicine 08/13/17 Marcus Estrada MD [address] [place] [address], [place] [address] Physician Ophthalmology 10/22/20 Rn Cardiac Cath Relationship Specialty Start Date End Date Jessica Coto APRN-RINKMAN [address] [place] [address] PCP - General Family Medicine 08/13/17 Marcus Estrada MD [address] [place] [address], [place] [address] Physician Ophthalmology 10/22/20 Rn Cardiac Cath Relationship Specialty Start Date End Date Jessica Coto APRN-RINKMAN [address] [place] [address] PCP - General Family Medicine 08/13/17 Marcus Estrada MD [address] [place] [address], [place] [address] Physician Ophthalmology 10/22/20 Rn Cardiac Cath Relationship Specialty Start Date End Date Jessica Coto APRN-RINKMAN [address] [place] [address] PCP - General Family Medicine 08/13/17 Marcus Estrada MD [address] [place] [address], [place] [address] Physician Ophthalmology 10/22/20 Rn Cardiac Cath Relationship Specialty Start Date End Date Jessica Coto APRN-RINKMAN [address] [place] [address] PCP - General Family Medicine 08/13/17 [place]ada [place] [id number] [place] [address], [place] [address] Physician Ophthalmology 10/22/20 Rn Cardiac Cath Relationship Specialty Start Date End Date Jessica Coto APRN-CNP [address] [place] [address], [place] [address] PCP - General Family Medicine 08/13/17 Marcus Estrada MD [address] [place] [address], [place] [address] Physician Ophthalmology 10/22/20 Rn Cardiac Cath Relationship Specialty Start Date End Date Jessica Coto APRN-RINKMAN [address] [place] [address], [place] [address] PCP - General Family Medicine 08/13/17 aMrcus Estrada MD [address] [place] [address], [place] [address] Physician Ophthalmology 10/22/20 Rn Cardiac Cath Relationship Specialty Start Date End Date Jessica Coto APRN-RINKMAN [address] [place] [address] PCP - General Family Medicine 08/13/17 Marcus Estrada MD [address] [place] [address], [place] [address] Physician Ophthalmology 10/22/20 Rn Cardiac Cath Relationship Specialty Start Date End Date Jessica Coto APRN-RINKMAN [address] [place] [address], [place] [address] PCP - General Family Medicine 08/13/17 Marcus Estrada MD [address] [place] [address], [place] [address] Physician Ophthalmology 10/22/20 Rn Cardiac Cath Relationship Specialty Start Date End Date Jessica Coto APRN-RINKMAN [id number] [place] [address], [place] [address] PCP - General Family Medicine 08/13/17 Marcus Estrada MD [id number] [place] [address], [place] [address] Physician Ophthalmology 10/22/20 Rn Cardiac Cath Relationship Specialty Start Date End Date Jessica Coto APRN-RINKMAN [address] [place] [address], [place] [address] PCP - General Family Medicine 08/13/17 [place] [address] [place] [address] Physician Ophthalmology 10/22/20 Rn Cardiac Cath Relationship Specialty Start Date End Date Jessica Coto APRN-RINKMAN [address] [place] [address] PCP - General Family Medicine 08/13/17 [place] [address] [place] [address] Physician Ophthalmology 10/22/20 Rn Cardiac Cath Relationship Specialty Start Date End Date Jessica Coto APRN-RINKMAN [id number] [place] [address], [place] [address] PCP - General Family Medicine 08/13/17 Marcus Estrada MD [id number] [place] [address], [place] [address] Physician Ophthalmology 10/22/20 Rn Cardiac Cath Relationship Specialty Start Date End Date Jessica Coto APRN-RINKMAN [address] [place] [address], [place] [address] PCP - General Family Medicine 08/13/17 Marcus Estrada MD [address] [place] [address], [place] [address] Physician Ophthalmology 10/22/20 Rn Cardiac Cath Relationship Specialty Start Date End Date Jessica Coto APRN-RINKMAN [address] [place] [address], [place] [address] PCP - General Family Medicine 08/13/17 Marcus Estrada MD [address] [place] [address] Physician Ophthalmology 10/22/20 Rn Cardiac Cath Relationship Specialty Start Date End Date Jessica Coto APRN-RINKMAN [address] [place] [address], [place] [address] PCP - General Family Medicine 08/13/17 Marcus Estrada MD [address] [place] [address], [place] [address] Physician Ophthalmology 10/22/20 Rn Cardiac Cath Relationship Specialty Start Date End Date Jessica Coto APRN-RINKMAN [address] [place] [address], [place] [address] PCP - General Family Medicine 08/13/17 Marcus Estrada MD [address] [place] [address], [place] [address] Physician Ophthalmology 10/22/20 Rn Cardiac Cath Relationship Specialty Start Date End Date Jessica Coto APRN-RINKMAN [address] [place] [address] PCP - General Family Medicine 08/13/17 [place] [address] [place] [address] Physician Ophthalmology 10/22/20 Rn Cardiac Cath Relationship Specialty Start Date End Date Jessica Coto APRN-RINKMAN [address] [place] [address] PCP - General Family Medicine 08/13/17 [place] [address] [place] [address] Physician Ophthalmology 10/22/20 Rn Cardiac Cath Relationship Specialty Start Date End Date Jessica Coto APRN-RINKMAN [address] [place] [address] PCP - General Family Medicine 08/13/17 [place] [address] [place] [address] Physician Ophthalmology 10/22/20 Rn Cardiac Cath Relationship Specialty Start Date End Date Jessica Coto APRN-RINKMAN [address] [place] [address] PCP - General Family Medicine 08/13/17 [place] [address] [place] [address] Physician Ophthalmology 10/22/20 Rn Cardiac Cath Relationship Specialty Start Date End Date Jessica Coto APRN-RINKMAN [id number] [place] [address], [place] [address] PCP - General Family Medicine 08/13/17 Marcus Estrada MD [address] [place], [place] [id number] Physician Ophthalmology 10/22/20 Rn Cardiac Cath Relationship Specialty Start Date End Date Jessica Coto APRN-CNP [address] [place] [address] PCP - General Family Medicine 08/13/17 Marcus Estrada MD [address] [place] [address] Physician Ophthalmology 10/22/20 Rn Cardiac Cath Relationship Specialty Start Date End Date Jessica Coto APRN-CNP [address] [place] [address] PCP - General Family Medicine 08/13/17 Marcus Estrada MD [address] [place] [address] Physician Ophthalmology 10/22/20 Reason for Visit (unrecogniz ed section and content) Reason Comments Health Maintenance Outreach Care Coordination Reminder Letter Sent Left Message To Call Back Reason Comments Immunization Reason Comments Medicare Wellness Reason Comments Refill Reason Comments New patient, to establish relationship Obesity (BMI >=30) Specialty Diagnoses / Procedures Referred By Naresh t Referred To Contact Internal Medicine Diagnoses Obesity (BMI 30.0-34.9) Stephanie Edmond PA-C [address] [place] [address] Weight Management [address] [place] [address] Referral ID Status Reason Start Date Expiration Date V isits Requested Visits Authorized [id number] Authorized 11/24/2021 11/24/2022 10 10 Reason Onset Date Comments Refill 12/21/2021 Reason Comments Limited or partial exam Urine leakage Reason Comments Obesity (BMI >=30) Reason Comments Flu-like Illness Sore throat, cough, headache, runny nose, chills, nausea x 2 days. 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 Reason Comments ER follow-up COVID-19 infection Reason Onset Date Comments COVID-19 infection 03/21/2022 Reason Comments follow up ER follow-up ED follow up from [facility] Reason Comments Medical Record Review Health Maintenance Outreach Care Coordination Reason Onset Date Comments Future Order 03/02/2023 Reason Comments Flu-like Illness FLU s/s started last night Reason Comments ER follow-up Outreach Medical Record Review Left Message To Call Back Reason Comments ER follow-up Flu Reason Onset Date Comments blood pressure medication/follow up appt 024 Reason Comments Complete exam Follow up, BP med fo llow up Reason Comments Medicare Wellness Reason Comments Limited or partial exam Reason Comments ER follow-up Reason Comments Monitoring/follow-up Scheduled Active and Recently Administ ered Medications (unrecognized section and content) Medication Order 03/16/2022 03/17/2022 03/18/2022 acetaminophen (TYLENOL) tablet (COMPLETED) 650 mg, Oral, ONCE, 1 dose, On 03/18/22 at 1800 1749 (Given - Provid er: Sharlene Cedeño RN) benzonatate (TESSALON) 100 MG capsule (COMPLETED) 100 mg, Oral, ONCE, 1 dose, On 03/18/22 at 1800 1749 (Given - Provid er: Sharlene Cedeño RN) guaifenesin (MUCINEX) 600 MG 12 hour tablet (COMPLETED) 600 mg, Oral, ONCE, 1 dose, On 03/18/22 at 1800 1749 (Given - Provid er: Sharlene Cedeño RN) PRN Medication Order 03/16/2022 03/17/2022 03/18/2022 ondansetron (ZOFRAN-ODT) disintegrating tablet 4 mg, Oral, EVERY 6 HOURS PRN, Starting on 03/18/22 at 1739, Until Discontinued, Nausea 1749 (Given - Provid er: Sharlene Cedeño RN) FOR RECORDS PERTAINING TO PATIENTS WHO ARE OR HAVE BEEN ENROLLED IN A CHEMICAL DEPENDENCY/SUBSTANCEABUSE PROGRAM, SOME INFORMATION MAY BE OMITTED. This clinical summary was aggregated from multiple sources. Caution should be exercised in using it in the provision of clinical care. This summary normalizes information from multiple sources, and as a consequence, information in this document may materially change the coding, format and clinical context of patient data. In addition, data may be omitted in some cases. CLINICAL DECISIONS SHOULD BE BASED ON THE PRIMARY CLINICAL RECORDS. [facility] [employer] [facility]. provides no warranty or guarantee of the accuracy or completeness of information in this document.
--- NOTE | 2024-08-02 18:33 | EX.ED.UPPERE ---
HPI History of Present Illness Chief Complaint: Laceration Informant: patient and spouse/S.O. Narrative Narrative: 69-year-old female presenting to the emergency room with left hand laceration. Patient states that she is camping in the area and originally is from [place]. She notes that she was cleaning out some plants when she sustained a left hand laceration. She denies any significant pain. No loss of function of the fingers. Bleeding controlled with pressure and dressing. Tetanus Immunization: <5 years PFSH PFSH Medical History Acid reflux disease Hypertension Allergy/AdvReac Type Severity Reaction Status Date / Time Penicillins Allergy Hives Verified 08/02/24 16:21 Surgical History H/O tubal ligation Social History Smoking Status: Never smoker ROS ROS ED Constitutional Constitutional ED: Denies chills, fever(s) or weight loss Eyes Eyes: Denies change in vision or diplopia ENT ENT ED: Denies ear pain, rhinorrhea or sore throat Cardiovascular Cardiovascular: Denies chest pain, orthopnea, palpitations or racing heartbeat Respiratory/Chest Respiratory/Chest: Denies cough, dyspnea or orthopnea Gastrointestinal Gastrointestinal: Denies abdominal pain, diarrhea, nausea or vomiting Genitourinary Genitourinary ED: Denies dysuria, hematuria or urinary frequency Musculoskeletal Musculoskeletal: Denies arthralgias or myalgias Integumentary Reports other Details: Left hand laceration ; Denies abscess or rash Neurologic Neurologic: Denies headache(s) or weakness Psychiatric Psychiatric: Denies anxiety, depression, suicidal ideation or suicidal thoughts Endocrine Endocrinology: Denies polydipsia, polyphagia or polyuria Allergic/Immunologic Allergic/Immunologic ED: Denies mouth swelling, tongue swelling or urticaria EXAM Physical Exam Const Vital Signs: 08/02/24 16:22 08/02/24 16:23 Temperature 98.1 F 98.1 F Temperature Source Temporal Oral Pulse Rate 95 95 Respiratory Rate 19 H 19 H Blood Pressure 150/89 H 150/89 H Blood Pressure Mean 109 109 Pulse Ox 97 97 Oxygen Delivery Method Room Air Room Air Positive well nourished and well developed General Appearance ED: well developed HEENT Reports normocephalic, head/scalp atraumatic and moist mucous membranes Eyes PERRL and EOMs intact bilaterally Neck no lymphadenopathy, supple and no JVD Resp normal respiratory effort and clear to auscultation bilaterally Cardio regular rate, regular rhythm and no murmurs GI normal to inspection, nondistended, normoactive bowel sounds and non-tender Palpation: soft Back/Spine no CVA tenderness and normal ROM Extremity normal to inspection General Extremety ED: Negative for edema General Extremity: Negative for edema Neuro oriented x3 and CN's II-XII intact bilaterally Sensorium / Orientation: alert Motor Exam: strength 5/5 throughout Psych mental status grossly normal Mood & Affect: Negative for depressed or tearful Skin no rashes or lesions noted Skin Narrative: There is a linear 3 cm laceration over the dorsum of the left hand the thumb and index finger. Neurovascular the patient appears intact. There is does not appear to be any bony or tendon involvement. The wound is clean. MDM MDM MDM Narrative Medical decision making narrative: Differential diagnosis includes but not limited to laceration neurovascular injury tendon injury Wound was locally anesthetized using 1% lidocaine. Washed with Shur-Clens irrigated and explored. It was closed using a total of 5 simple erupted 4-0 Ethilon sutures. Local wound care discussed with the patient. Stitches need to be removed in 10 days. History & Record Review Discussion w/independent historian: Patient and Significant other Discharge Plan Triage Chief Complaint: Laceration ED Provider: Gerber Patricio Dx/Rx/DC Orders Clinical Impression: Hand laceration Instructions: ED Laceration, Hand: All Closures Primary Care Provider: MARI GALLARDO Referrals: MARI GALLARDO [Other] - 10 Day for suture removal Activity Restrictions/Additional Instructions: Stitches should be removed in about 10 days. Local wound care with soap and water is fine. Antibiotic ointment 1 time per day. You can allow the wound out to the air if you resting at home. Otherwise keep the wound covered and dry when not cleaning or showering. Monitor for signs of infection such as redness and drainage. Return if needed. Print Language: French Disposition Disposition: Home, Self Care
[2024-08-02] MEDS: BACITRACIN 15 GM Tube 1 APPLIC TOPICAL (18:49)
[2024-08-02] MEDS: Lidocaine 1% (20 ml mdv) 20 ML Vial INFILT (18:49)
[2024-08-02 18:50] VITALS: BP 130/72; PULSE 74; RESP 19; TEMP 36.2; O2SAT 99
== END 2024-08-02 18:50 | disposition home or self-care (01) ==
PROVIDERS: Emergency Provider Emergency Medicine; Visit Provider Emergency Medicine
DX: S61.412A Laceration without foreign body of left hand, initial encounter (principal); S61.012A Laceration without foreign body of left thumb without damage to nail, initial encounter; S61.211A Laceration without foreign body of left index finger without damage to nail, initial encounter; X58.XXXA Exposure to other specified factors, initial encounter
CPT/HCPCS: 12002; 99283